=== PATIENT | male | born 1965 | race Caucasian/White ===

== ENCOUNTER 2020-03-01 13:46 | Inpatient (IN) | payer OTHER ==
[2020-03-01] MEDS ORDERED: ONDANSETRON *ODT* 4 MG TABLET SL PRN (16:57)
[2020-03-01] MEDS ORDERED: MAGNESIUM CITRATE 300 ML BOTTLE PO PRN (16:57)
[2020-03-01] MEDS ORDERED: methaDONE HCL 10 MG TABLET (FOR DETOX USE ONLY) PO ONE (16:57)
[2020-03-01] MEDS ORDERED: MAGNESIUM HYDROX 2400MG/30ML ORAL SUSPENSION 30 ML CUP PO PRN (16:57)
[2020-03-01] MEDS ORDERED: IBUPROFEN 400 MG TABLET (FP) PO PRN (16:57)
[2020-03-01] MEDS ORDERED: hydrOXYzine PAMOATE 25 MG CAPSULE (FP) PO PRN (16:57)
[2020-03-01] MEDS ORDERED: cloNIDine HCL 0.1 MG TABLET PO PRN (16:57)
[2020-03-01] MEDS ORDERED: MENTHOL/PHENOL 1 EACH UD MM PRN (16:57)
[2020-03-01] MEDS ORDERED: METHOCARBAMOL 500 MG TABLET PO PRN (16:57)
[2020-03-01] MEDS ORDERED: ACETAMINOPHEN 325 MG TABLET (FP) PO PRN ×2 (16:57)
[2020-03-01] MEDS ORDERED: BISMUTH SUBSALICYLATE 524 MG/30 ML PO PRN (16:57)
[2020-03-01] MEDS ORDERED: MAG HYDROX/AL HYDROX/SIMETH 30 ML UNIT-DOSE CUP PO PRN (16:57)
[2020-03-01] MEDS: ATORVASTATIN CA 80 MG TABLET (FP) PO SCH (22:29)
[2020-03-01] MEDS: MELATONIN 5 MG TABLETS PO SCH (22:29)
[2020-03-01] MEDS: THIAMINE HCL 100 MG TABLET (FP) PO SCH (22:29)
[2020-03-02] MEDS ORDERED: methaDONE HCL 10 MG TABLET (FOR DETOX USE ONLY) ONE (08:28)
[2020-03-02] MEDS: PRENATAL VITAMINS W/ FOLIC ACID TABLET (FP) PO SCH (09:16)
[2020-03-02] MEDS: NIFEdipine E.R 60 MG TABLET PO SCH (09:17)
[2020-03-02] MEDS: ASPIRIN 81 MG CHEWABLE TABLETS PO SCH (09:17)
[2020-03-02] MEDS ORDERED: DOCUSATE SODIUM 100 MG CAPSULE (FP) PO SCH (10:00)
[2020-03-02] MEDS ORDERED: HYDROCHLOROTHIAZIDE 25 MG TABLET (FP) PO SCH (10:00)
[2020-03-02] MEDS ORDERED: LACTULOSE 20 GM/30 ML UDC (FOR ORAL USE ONLY) PO ONE (10:52)
[2020-03-02] MEDS ORDERED: BISACODYL 10 MG SUPP.RECT PR ONE (10:52)
[2020-03-02] MEDS: FAMOTIDINE 20 MG TABLET PO SCH ×2 (12:00→22:09)
[2020-03-02] MEDS: RANOLAZINE E.R. 500 MG TABLET (FP) PO SCH ×2 (12:00→22:09)
[2020-03-02 12:01] LABS: HEMATOCRIT 29.8 % (35.4-49); HEMOGLOBIN 10.2 GM/dL (11.7-16.9); MCH 26.7 pg (25.7-33.7); MCHC 34.2 g/dl (32.0-35.9); MEAN CELL VOLUME 78.1 fl (80-96); MEAN PLT VOLUME 7.6 fl (7.5-11.1); PLATELET COUNT 178 K/MM3 (134-434); RBC 3.81 M/mm3 (4.00-5.60); RDW 14.5 % (11.9-15.9)
[2020-03-02 12:06] LABS: ALBUMIN 3.4 g/dl (3.4-5.0)
[2020-03-02 12:08] LABS: CALCIUM 8.5 mg/dL (8.5-10.1)
[2020-03-02 12:09] LABS: BLOOD UREA NITROGEN 18.5 mg/dL (7-18)
[2020-03-02 12:12] LABS: CREATININE 1.2 mg/dL (0.55-1.3)
[2020-03-02 12:13] LABS: BILIRUBIN,TOTAL 0.6 mg/dL (0.2-1); TOT PROT 6.6 g/dl (6.4-8.2)
[2020-03-02] MEDS ORDERED: POTASSIUM CHLORIDE ORAL LIQUID 20 MEQ/15 ML PO ONE (16:27)
[2020-03-02] MEDS ORDERED: SODIUM PHOSPHATE/NA BIPHOS 133 ML ENEMA PR ONE (21:22)
[2020-03-02] MEDS: ATORVASTATIN CA 80 MG TABLET (FP) PO SCH (22:08)
[2020-03-02] MEDS: MELATONIN 5 MG TABLETS PO SCH (22:08)
[2020-03-02] MEDS: THIAMINE HCL 100 MG TABLET (FP) PO SCH (22:09)
[2020-03-02] MEDS: POTASSIUM CHLORIDE ORAL LIQUID 20 MEQ/15 ML PO SCH (22:09)
[2020-03-03] MEDS ORDERED: methaDONE HCL 10 MG TABLET (FOR DETOX USE ONLY) PO ONE (10:00)
[2020-03-03] MEDS: NIFEdipine E.R 60 MG TABLET PO SCH (10:02)
[2020-03-03] MEDS: ASPIRIN 81 MG CHEWABLE TABLETS PO SCH (10:02)
[2020-03-03] MEDS: PRENATAL VITAMINS W/ FOLIC ACID TABLET (FP) PO SCH (10:03)
[2020-03-03] MEDS: POTASSIUM CHLORIDE ORAL LIQUID 20 MEQ/15 ML PO SCH ×2 (10:03→22:10)
[2020-03-03] MEDS: RANOLAZINE E.R. 500 MG TABLET (FP) PO SCH ×2 (10:03→22:10)
[2020-03-03] MEDS: FAMOTIDINE 20 MG TABLET PO SCH ×2 (10:03→22:11)
[2020-03-03] MEDS: LOSARTAN 50MG/HCTZ 12.5MG 1 TAB PO SCH (10:04)
[2020-03-03] MEDS ORDERED: BISACODYL 10 MG SUPP.RECT PR ONE (10:18)
[2020-03-03 11:03] LABS: HEMATOCRIT 30.1 % (35.4-49); HEMOGLOBIN 10.2 GM/dL (11.7-16.9); MCH 26.5 pg (25.7-33.7); MCHC 33.9 g/dl (32.0-35.9); MEAN CELL VOLUME 78.1 fl (80-96); MEAN PLT VOLUME 7.5 fl (7.5-11.1); PLATELET COUNT 181 K/MM3 (134-434); RBC 3.85 M/mm3 (4.00-5.60); WHITE BLOOD COUNT 5.1 K/mm3 (4.0-10.0)
[2020-03-03 11:11] LABS: BLOOD UREA NITROGEN 17.1 mg/dL (7-18)
[2020-03-03 11:13] LABS: ALBUMIN 3.2 g/dl (3.4-5.0); BILIRUBIN,TOTAL 0.4 mg/dL (0.2-1)
[2020-03-03 11:16] LABS: CALCIUM 8.5 mg/dL (8.5-10.1)
[2020-03-03 11:21] LABS: TOT PROT 6.1 g/dl (6.4-8.2)
[2020-03-03] MEDS: POLYETHYLENE GLYCOL 3350 119 GM BTL PO SCH (11:31)
[2020-03-03] MEDS ORDERED: diazePAM 5 MG TABLET PO PRN (12:33)
[2020-03-03] MEDS: SENNOSIDES 8.6MG TABLET (FP) PO SCH (22:08)
[2020-03-03] MEDS: MELATONIN 5 MG TABLETS PO SCH (22:08)
[2020-03-03] MEDS: ATORVASTATIN CA 40 MG TABLET (FP) PO SCH (22:09)
[2020-03-03] MEDS: THIAMINE HCL 100 MG TABLET (FP) PO SCH (22:09)
[2020-03-04] MEDS ORDERED: methaDONE HCL 10 MG TABLET (FOR DETOX USE ONLY) ONE (08:44)
[2020-03-04] MEDS: ASPIRIN 81 MG CHEWABLE TABLETS PO SCH (09:27)
[2020-03-04] MEDS: RANOLAZINE E.R. 500 MG TABLET (FP) PO SCH ×2 (09:27→22:14)
[2020-03-04] MEDS: NIFEdipine E.R 60 MG TABLET PO SCH (09:27)
[2020-03-04] MEDS: SENNOSIDES 8.6MG TABLET (FP) PO SCH ×2 (09:27→22:14)
[2020-03-04] MEDS: PRENATAL VITAMINS W/ FOLIC ACID TABLET (FP) PO SCH (09:27)
[2020-03-04] MEDS: LOSARTAN 50MG/HCTZ 12.5MG 1 TAB PO SCH (09:28)
[2020-03-04] MEDS: POLYETHYLENE GLYCOL 3350 119 GM BTL PO SCH (09:28)
[2020-03-04] MEDS: FAMOTIDINE 20 MG TABLET PO SCH ×2 (09:29→22:13)
[2020-03-04] MEDS: POTASSIUM CHLORIDE ORAL LIQUID 20 MEQ/15 ML PO SCH ×2 (10:32→22:13)
[2020-03-04] MEDS: MELATONIN 5 MG TABLETS PO SCH (22:13)
[2020-03-04] MEDS: ATORVASTATIN CA 40 MG TABLET (FP) PO SCH (22:13)
[2020-03-04] MEDS: THIAMINE HCL 100 MG TABLET (FP) PO SCH (22:14)
[2020-03-05 06:24] VITALS: BP 129/67; PULSE 55; TEMP 97.6
[2020-03-05] MEDS: ASPIRIN 81 MG CHEWABLE TABLETS PO SCH (09:03)
[2020-03-05] MEDS: PRENATAL VITAMINS W/ FOLIC ACID TABLET (FP) PO SCH (09:03)
[2020-03-05] MEDS: SENNOSIDES 8.6MG TABLET (FP) PO SCH (09:03)
[2020-03-05] MEDS: NIFEdipine E.R 60 MG TABLET PO SCH (09:04)
[2020-03-05] MEDS: POTASSIUM CHLORIDE ORAL LIQUID 20 MEQ/15 ML PO SCH (09:04)
[2020-03-05] MEDS: LOSARTAN 50MG/HCTZ 12.5MG 1 TAB PO SCH (09:04)
[2020-03-05] MEDS: FAMOTIDINE 20 MG TABLET PO SCH (09:05)
[2020-03-05] MEDS: RANOLAZINE E.R. 500 MG TABLET (FP) PO SCH (09:05)
[2020-03-05] MEDS: POLYETHYLENE GLYCOL 3350 119 GM BTL PO SCH (09:09)
[2020-03-05] MEDS ORDERED: methaDONE HCL 10 MG TABLET (FOR DETOX USE ONLY) PO ONE (10:00)
== END 2020-03-05 09:14 | disposition home or self-care (01) | DRG 773 ==
LOC: YASAS 13:46 → Y3N 17:54
PROVIDERS: ADMIT Allergy & Immunology; ATTEND Allergy & Immunology
PROC: HZ2ZZZZ Detoxification Services for Substance Abuse Treatment (ICD-10-PCS; principal; 2020-03-01)
DX: F11.23 Opioid dependence with withdrawal (principal); F19.24 Other psychoactive substance dependence with psychoactive substance-induced mood disorder; F41.9 Anxiety disorder, unspecified; A53.0 Latent syphilis, unspecified as early or late; G47.00 Insomnia, unspecified; I25.10 Atherosclerotic heart disease of native coronary artery without angina pectoris; I10 Essential (primary) hypertension; Z95.1 Presence of aortocoronary bypass graft; E78.5 Hyperlipidemia, unspecified; K59.00 Constipation, unspecified; Z87.891 Personal history of nicotine dependence; Z88.8 Allergy status to other drugs, medicaments and biological substances
CPT/HCPCS: 36415; 80053; 85027; 86593; 86780; 93005; 93010; C9803; J0735; U0003

== ENCOUNTER 2020-05-03 12:13 | Inpatient (IN) | payer OTHER ==
[2020-05-03 14:27] VITALS: BMI 31.2
[2020-05-03] MEDS ORDERED: IBUPROFEN 400 MG TABLET (FP) PO PRN (14:41)
[2020-05-03] MEDS ORDERED: ACETAMINOPHEN 325 MG TABLET (FP) PO PRN ×2 (14:41)
[2020-05-03] MEDS ORDERED: METHADONE HCL 10 MG TABLET (FOR DETOX USE ONLY) PO ONE (14:41)
[2020-05-03] MEDS ORDERED: BISMUTH SUBSALICYLATE 262 MG/15 ML BTL PO PRN (14:41)
[2020-05-03] MEDS ORDERED: ONDANSETRON *ODT* 4 MG TABLET SL PRN (14:41)
[2020-05-03] MEDS ORDERED: MAGNESIUM CITRATE 300 ML BOTTLE PO PRN (14:41)
[2020-05-03] MEDS ORDERED: MAG HYDROX/AL HYDROX/SIMETH 30 ML UNIT-DOSE CUP PO PRN (14:41)
[2020-05-03] MEDS ORDERED: MENTHOL/PHENOL 1 EACH UD MM PRN (14:41)
[2020-05-03] MEDS: PRENATAL VITAMINS W/ FOLIC ACID TABLET (FP) PO SCH (16:02)
[2020-05-03] MEDS: METHOCARBAMOL 500 MG TABLET PO PRN (16:03)
[2020-05-03] MEDS: MAGNESIUM HYDROX 2400MG/30ML ORAL SUSPENSION 30 ML CUP PO PRN (16:04)
[2020-05-03] MEDS ORDERED: LACTULOSE 20 GM/30 ML UDC (FOR ORAL USE ONLY) PO ONE (16:15)
[2020-05-03] MEDS: hydrOXYzine PAMOATE 25 MG CAPSULE (FP) PO SCH ×2 (18:00→22:23)
[2020-05-03] MEDS ORDERED: COLLOIDAL OATMEAL 1 BAR EACH TP PRN (18:26)
[2020-05-03] MEDS: THIAMINE HCL 100 MG TABLET (FP) PO SCH (22:22)
[2020-05-03] MEDS: ATORVASTATIN CA 40 MG TABLET (FP) PO SCH (22:22)
[2020-05-03] MEDS: MELATONIN 5 MG TABLETS PO SCH (22:23)
[2020-05-03] MEDS: LACTULOSE 20 GM/30 ML UDC (FOR ORAL USE ONLY) PO SCH (22:23)
[2020-05-03] MEDS: hydrALAZINE HCL 25 MG TABLET (FP) PO SCH (23:48)
[2020-05-03] MEDS: CARVEDILOL 6.25 MG TABLET (FP) PO SCH (23:48)
[2020-05-04] MEDS: hydrOXYzine PAMOATE 25 MG CAPSULE (FP) PO SCH (07:09)
[2020-05-04] MEDS: LACTULOSE 20 GM/30 ML UDC (FOR ORAL USE ONLY) PO SCH ×3 (07:09→22:03)
[2020-05-04] MEDS: hydrALAZINE HCL 25 MG TABLET (FP) PO SCH ×3 (07:12→22:03)
[2020-05-04] MEDS ORDERED: MASKS NR ONE (07:13)
[2020-05-04] MEDS ORDERED: METHADONE HCL 10 MG TABLET (FOR DETOX USE ONLY) ONE (08:49)
[2020-05-04] MEDS ORDERED: METHADONE HCL 5 MG TABLET (FOR DETOX USE ONLY) ONE (08:49)
[2020-05-04] MEDS ORDERED: hydrOXYzine PAMOATE 25 MG CAPSULE (FP) PO PRN (09:13)
[2020-05-04] MEDS ORDERED: METHADONE (DETOX) 20 MG, METHADONE (DETOX) 5 MG PO ONE (10:00)
[2020-05-04 10:28] LABS: HEMATOCRIT 30.1 % (35.4-49); HEMOGLOBIN 10.1 GM/dL (11.7-16.9); MCH 27.2 pg (25.7-33.7); MCHC 33.7 g/dl (32.0-35.9); MEAN CELL VOLUME 80.7 fl (80-96); MEAN PLT VOLUME 7.8 fl (7.5-11.1); PLATELET COUNT 203 K/MM3 (134-434); RBC 3.73 M/mm3 (4.00-5.60); RDW 15.4 % (11.9-15.9); WHITE BLOOD COUNT 5.9 K/mm3 (4.0-10.0)
[2020-05-04] MEDS: ASPIRIN 81 MG CHEWABLE TABLETS PO SCH (10:41)
[2020-05-04] MEDS: CARVEDILOL 6.25 MG TABLET (FP) PO SCH ×2 (10:42→22:03)
[2020-05-04] MEDS: HYDROCHLOROTHIAZIDE 25 MG TABLET (FP) PO SCH (10:42)
[2020-05-04] MEDS: LOSARTAN POTASSIUM 50 MG TABLET PO SCH (10:42)
[2020-05-04] MEDS: PANTOPRAZOLE 40 MG TABLET PO SCH (10:42)
[2020-05-04] MEDS: PRENATAL VITAMINS W/ FOLIC ACID TABLET (FP) PO SCH (10:42)
[2020-05-04 11:05] LABS: ALBUMIN 3.9 g/dl (3.4-5.0)
[2020-05-04 11:06] LABS: BLOOD UREA NITROGEN 23.4 mg/dL (7-18)
[2020-05-04 11:09] LABS: CREATININE 1.4 mg/dL (0.55-1.3)
[2020-05-04 11:10] LABS: BILIRUBIN,TOTAL 0.4 mg/dL (0.2-1); TOT PROT 7.3 g/dl (6.4-8.2)
[2020-05-04 11:19] LABS: CALCIUM 8.9 mg/dL (8.5-10.1)
[2020-05-04] MEDS: NIFEdipine E.R 60 MG TABLET PO SCH (11:50)
[2020-05-04] MEDS: busPIRone HCL 5 MG TABLET PO SCH ×2 (14:05→22:02)
[2020-05-04] MEDS: cloNIDine HCL 0.1 MG TABLET PO PRN ×2 (14:08→22:07)
[2020-05-04] MEDS ORDERED: RANOLAZINE E.R. 500 MG TABLET (FP) PO ONE (14:52)
[2020-05-04] MEDS: MELATONIN 5 MG TABLETS PO SCH (22:03)
[2020-05-04] MEDS: ATORVASTATIN CA 40 MG TABLET (FP) PO SCH (22:03)
[2020-05-04] MEDS: RANOLAZINE E.R. 500 MG TABLET (FP) PO SCH (22:03)
[2020-05-04] MEDS: THIAMINE HCL 100 MG TABLET (FP) PO SCH (22:03)
[2020-05-05] MEDS: hydrALAZINE HCL 25 MG TABLET (FP) PO SCH ×3 (06:21→22:26)
[2020-05-05] MEDS: busPIRone HCL 5 MG TABLET PO SCH ×3 (06:21→22:25)
[2020-05-05] MEDS: LACTULOSE 20 GM/30 ML UDC (FOR ORAL USE ONLY) PO SCH (06:23)
[2020-05-05] MEDS ORDERED: METHADONE HCL 10 MG TABLET (FOR DETOX USE ONLY) PO ONE (10:00)
[2020-05-05] MEDS ORDERED: NIFEdipine E.R 60 MG TABLET PO SCH (10:00)
[2020-05-05] MEDS ORDERED: RANOLAZINE E.R. 500 MG TABLET (FP) PO ONE (12:00)
[2020-05-05] MEDS: METHOCARBAMOL 500 MG TABLET PO PRN (12:19)
[2020-05-05] MEDS: ASPIRIN 81 MG CHEWABLE TABLETS PO SCH (12:19)
[2020-05-05] MEDS: PANTOPRAZOLE 40 MG TABLET PO SCH (12:19)
[2020-05-05] MEDS: PRENATAL VITAMINS W/ FOLIC ACID TABLET (FP) PO SCH (12:19)
[2020-05-05] MEDS: CARVEDILOL 6.25 MG TABLET (FP) PO SCH (12:20)
[2020-05-05] MEDS: LOSARTAN POTASSIUM 50 MG TABLET PO SCH ×2 (12:23→12:31)
[2020-05-05] MEDS: HYDROCHLOROTHIAZIDE 25 MG TABLET (FP) PO SCH (12:23)
[2020-05-05] MEDS: NIFEdipine E.R 60 MG TABLET PO SCH ×2 (12:24→12:32)
[2020-05-05] MEDS ORDERED: ATORVASTATIN CA 40 MG TABLET (FP) PO SCH (13:11)
[2020-05-05] MEDS ORDERED: POLYETHYLENE GLYCOL 3350 119 GM BTL PO PRN (13:12)
[2020-05-05] MEDS ORDERED: LACTULOSE 20 GM/30 ML UDC (FOR ORAL USE ONLY) PO PRN (13:12)
[2020-05-05] MEDS ORDERED: CLOPIDOGREL BISULFATE 75 MG TABLET (FP) PO SCH (14:00)
[2020-05-05] MEDS: CLOPIDOGREL BISULFATE 75 MG TABLET (FP) PO SCH (15:00)
[2020-05-05] MEDS: RANOLAZINE E.R. 500 MG TABLET (FP) PO SCH ×2 (15:26→22:25)
[2020-05-05] MEDS: ATORVASTATIN CA 20 MG TABLET (FP) PO SCH (22:24)
[2020-05-05] MEDS: MELATONIN 5 MG TABLETS PO SCH (22:24)
[2020-05-05] MEDS: FAMOTIDINE 20 MG TABLET PO SCH (22:25)
[2020-05-05] MEDS: THIAMINE HCL 100 MG TABLET (FP) PO SCH (22:25)
[2020-05-05] MEDS: MAGNESIUM HYDROX 2400MG/30ML ORAL SUSPENSION 30 ML CUP PO PRN (22:43)
[2020-05-06] MEDS: busPIRone HCL 5 MG TABLET PO SCH ×3 (06:30→22:34)
[2020-05-06] MEDS: CLOPIDOGREL BISULFATE 75 MG TABLET (FP) PO SCH (06:31)
[2020-05-06] MEDS: hydrALAZINE HCL 25 MG TABLET (FP) PO SCH ×3 (06:31→22:34)
[2020-05-06] MEDS ORDERED: METHADONE HCL 10 MG TABLET (FOR DETOX USE ONLY) ONE (09:53)
[2020-05-06] MEDS ORDERED: METHADONE HCL 5 MG TABLET (FOR DETOX USE ONLY) ONE (09:53)
[2020-05-06] MEDS ORDERED: METHADONE (DETOX) 10 MG, METHADONE (DETOX) 5 MG PO ONE (10:00)
[2020-05-06] MEDS: HYDROCHLOROTHIAZIDE 25 MG TABLET (FP) PO SCH (10:52)
[2020-05-06] MEDS: PRENATAL VITAMINS W/ FOLIC ACID TABLET (FP) PO SCH (10:54)
[2020-05-06] MEDS: FAMOTIDINE 20 MG TABLET PO SCH ×2 (10:55→22:35)
[2020-05-06] MEDS: LOSARTAN POTASSIUM 50 MG TABLET PO SCH (10:55)
[2020-05-06] MEDS: ASPIRIN 81 MG CHEWABLE TABLETS PO SCH (10:55)
[2020-05-06] MEDS: NIFEdipine E.R 60 MG TABLET PO SCH (10:55)
[2020-05-06] MEDS: RANOLAZINE E.R. 500 MG TABLET (FP) PO SCH ×2 (10:55→22:35)
[2020-05-06] MEDS: METHOCARBAMOL 500 MG TABLET PO PRN ×2 (10:56→17:54)
[2020-05-06] MEDS: MELATONIN 5 MG TABLETS PO SCH (22:34)
[2020-05-06] MEDS: ATORVASTATIN CA 20 MG TABLET (FP) PO SCH (22:35)
[2020-05-06] MEDS: THIAMINE HCL 100 MG TABLET (FP) PO SCH (22:36)
[2020-05-07] MEDS ORDERED: METHADONE HCL 10 MG TABLET (FOR DETOX USE ONLY) PO ONE ×2 (06:00→10:00)
[2020-05-07] MEDS: CLOPIDOGREL BISULFATE 75 MG TABLET (FP) PO SCH (06:05)
[2020-05-07] MEDS: busPIRone HCL 5 MG TABLET PO SCH ×2 (06:06→15:27)
[2020-05-07] MEDS: hydrALAZINE HCL 25 MG TABLET (FP) PO SCH ×2 (06:30→15:26)
[2020-05-07 09:38] VITALS: BP 169/84; PULSE 57; TEMP 96.9
[2020-05-07] MEDS: ASPIRIN 81 MG CHEWABLE TABLETS PO SCH (11:32)
[2020-05-07] MEDS: HYDROCHLOROTHIAZIDE 25 MG TABLET (FP) PO SCH (11:33)
[2020-05-07] MEDS: PRENATAL VITAMINS W/ FOLIC ACID TABLET (FP) PO SCH (11:33)
[2020-05-07] MEDS: FAMOTIDINE 20 MG TABLET PO SCH (11:34)
[2020-05-07] MEDS: NIFEdipine E.R 60 MG TABLET PO SCH (11:34)
[2020-05-07] MEDS: RANOLAZINE E.R. 500 MG TABLET (FP) PO SCH (11:34)
[2020-05-07] MEDS: LOSARTAN POTASSIUM 50 MG TABLET PO SCH (11:34)
[2020-05-08] MEDS ORDERED: METHADONE HCL 5 MG TABLET (FOR DETOX USE ONLY) PO ONE (06:00)
== END 2020-05-07 09:19 | disposition home or self-care (01) | DRG 773 ==
LOC: YASAS 12:13 → Y3N 14:49
PROVIDERS: ADMIT Allergy & Immunology; ATTEND Allergy & Immunology
PROC: HZ2ZZZZ Detoxification Services for Substance Abuse Treatment (ICD-10-PCS; principal; 2020-05-03)
DX: F11.23 Opioid dependence with withdrawal (principal); F19.282 Other psychoactive substance dependence with psychoactive substance-induced sleep disorder; F19.280 Other psychoactive substance dependence with psychoactive substance-induced anxiety disorder; F19.24 Other psychoactive substance dependence with psychoactive substance-induced mood disorder; F32.9 Major depressive disorder, single episode, unspecified; F41.9 Anxiety disorder, unspecified; I25.10 Atherosclerotic heart disease of native coronary artery without angina pectoris; I10 Essential (primary) hypertension; Z95.1 Presence of aortocoronary bypass graft; Z87.891 Personal history of nicotine dependence; Z86.19 Personal history of other infectious and parasitic diseases; Z88.8 Allergy status to other drugs, medicaments and biological substances
CPT/HCPCS: 36415; 80053; 85027; 86593; 86780; 93005; 93010; C9803; J0735; U0003

== ENCOUNTER 2020-05-26 17:58 | Inpatient (IN) | payer OTHER ==
[2020-05-26] MEDS ORDERED: IBUPROFEN 400 MG TABLET (FP) PO PRN (19:54)
[2020-05-26] MEDS ORDERED: MAG HYDROX/AL HYDROX/SIMETH 30 ML UNIT-DOSE CUP PO PRN (19:54)
[2020-05-26] MEDS ORDERED: METHOCARBAMOL 500 MG TABLET PO PRN (19:54)
[2020-05-26] MEDS ORDERED: MAGNESIUM CITRATE 300 ML BOTTLE PO PRN (19:54)
[2020-05-26] MEDS ORDERED: BISMUTH SUBSALICYLATE 524 MG/30 ML UD PO PRN (19:54)
[2020-05-26] MEDS ORDERED: MENTHOL/PHENOL 1 EACH UD MM PRN (19:54)
[2020-05-26] MEDS ORDERED: cloNIDine HCL 0.1 MG TABLET PO PRN (19:54)
[2020-05-26] MEDS ORDERED: MAGNESIUM HYDROX 2400MG/30ML ORAL SUSPENSION 30 ML CUP PO PRN (19:54)
[2020-05-26] MEDS ORDERED: ACETAMINOPHEN 325 MG TABLET (FP) PO PRN ×2 (19:54)
[2020-05-26] MEDS ORDERED: ONDANSETRON *ODT* 4 MG TABLET SL PRN (19:54)
[2020-05-26 19:57] VITALS: BMI 30.2
[2020-05-26] MEDS ORDERED: hydrOXYzine PAMOATE 50 MG CAPSULE (FP) PO PRN (20:01)
[2020-05-26] MEDS ORDERED: METHADONE HCL 10 MG TABLET (FOR DETOX USE ONLY) PO ONE (21:00)
[2020-05-26] MEDS: THIAMINE HCL 100 MG TABLET (FP) PO SCH (23:00)
[2020-05-26] MEDS: ATORVASTATIN CA 40 MG TABLET (FP) PO SCH (23:00)
[2020-05-26] MEDS: hydrALAZINE HCL 25 MG TABLET (FP) PO SCH ×2 (23:00→23:14)
[2020-05-26] MEDS: CARVEDILOL 6.25 MG TABLET (FP) PO SCH (23:01)
[2020-05-26] MEDS: hydrOXYzine PAMOATE 25 MG CAPSULE (FP) PO SCH (23:04)
[2020-05-26] MEDS: RANOLAZINE E.R. 500 MG TABLET (FP) PO SCH (23:04)
[2020-05-26] MEDS: MELATONIN 5 MG TABLETS PO SCH ×2 (23:04→23:13)
[2020-05-26] MEDS: busPIRone HCL 5 MG TABLET PO SCH (23:04)
[2020-05-26] MEDS ORDERED: LACTULOSE 20 GM/30 ML UDC (FOR ORAL USE ONLY) PO ONE (23:30)
[2020-05-26] MEDS: LACTULOSE 20 GM/30 ML UDC (FOR ORAL USE ONLY) PO ONE ×2 (23:56→23:57)
[2020-05-27] MEDS: busPIRone HCL 5 MG TABLET PO SCH (05:34)
[2020-05-27] MEDS: hydrOXYzine PAMOATE 25 MG CAPSULE (FP) PO SCH ×6 (05:34→22:38)
[2020-05-27] MEDS: hydrALAZINE HCL 25 MG TABLET (FP) PO SCH ×3 (07:49→22:37)
[2020-05-27] MEDS ORDERED: METHADONE HCL 10 MG TABLET (FOR DETOX USE ONLY) ONE (08:48)
[2020-05-27] MEDS ORDERED: METHADONE HCL 5 MG TABLET (FOR DETOX USE ONLY) ONE (08:49)
[2020-05-27] MEDS ORDERED: LACTULOSE 20 GM/30 ML UDC (FOR ORAL USE ONLY) PO SCH (10:00)
[2020-05-27] MEDS ORDERED: FERROUS SO4 325 MG TABLET (FP) PO SCH (10:00)
[2020-05-27] MEDS ORDERED: METHADONE (DETOX) 20 MG, METHADONE (DETOX) 5 MG PO ONE (10:00)
[2020-05-27] MEDS: PANTOPRAZOLE 40 MG TABLET PO SCH (10:19)
[2020-05-27] MEDS: DOCUSATE SODIUM 100 MG CAPSULE (FP) PO SCH (10:19)
[2020-05-27] MEDS: RANOLAZINE E.R. 500 MG TABLET (FP) PO SCH ×2 (10:20→22:38)
[2020-05-27] MEDS: HYDROCHLOROTHIAZIDE 25 MG TABLET (FP) PO SCH (10:20)
[2020-05-27] MEDS: CARVEDILOL 6.25 MG TABLET (FP) PO SCH ×2 (10:20→22:38)
[2020-05-27] MEDS: LOSARTAN POTASSIUM 50 MG TABLET PO SCH (10:21)
[2020-05-27] MEDS: FLUoxetine HCL 20 MG CAPSULE PO SCH (10:21)
[2020-05-27] MEDS: ASPIRIN 81 MG CHEWABLE TABLETS PO SCH (10:21)
[2020-05-27] MEDS: FERROUS SO4 325 MG TABLET (FP) PO SCH ×2 (10:22→22:38)
[2020-05-27] MEDS: PRENATAL VITAMINS W/ FOLIC ACID TABLET (FP) PO SCH (10:22)
[2020-05-27] MEDS: NIFEdipine E.R 60 MG TABLET PO SCH (10:30)
[2020-05-27] MEDS: CLOPIDOGREL BISULFATE 75 MG TABLET (FP) PO SCH (10:32)
[2020-05-27 10:40] LABS: HEMATOCRIT 26.9 % (35.4-49); HEMOGLOBIN 9.4 GM/dL (11.7-16.9); MCH 28.1 pg (25.7-33.7); MEAN CELL VOLUME 80.2 fl (80-96); MEAN PLT VOLUME 7.2 fl (7.5-11.1); PLATELET COUNT 191 K/MM3 (134-434); RBC 3.36 M/mm3 (4.00-5.60); RDW 15.2 % (11.9-15.9); WHITE BLOOD COUNT 4.4 K/mm3 (4.0-10.0)
[2020-05-27 10:41] LABS: POTASSIUM 3.7 mmol/L (3.5-5.1)
[2020-05-27 10:51] LABS: CREATININE 1.1 mg/dL (0.55-1.3)
[2020-05-27 10:52] LABS: TOT PROT 6.2 g/dl (6.4-8.2)
[2020-05-27] MEDS ORDERED: TRIMETHOBENZAMIDE HCL 200MG/2ML INJ IM PRN (10:55)
[2020-05-27 10:56] LABS: ALBUMIN 3.2 g/dl (3.4-5.0); BILIRUBIN,TOTAL 0.4 mg/dL (0.2-1); BLOOD UREA NITROGEN 24.1 mg/dL (7-18); CALCIUM 8.6 mg/dL (8.5-10.1)
[2020-05-27] MEDS: ATORVASTATIN CA 40 MG TABLET (FP) PO SCH (22:37)
[2020-05-27] MEDS: THIAMINE HCL 100 MG TABLET (FP) PO SCH (22:38)
[2020-05-27] MEDS: LACTULOSE 20 GM/30 ML UDC (FOR ORAL USE ONLY) PO SCH (22:39)
[2020-05-27] MEDS: MELATONIN 5 MG TABLETS PO SCH (22:39)
[2020-05-28] MEDS: hydrOXYzine PAMOATE 25 MG CAPSULE (FP) PO SCH ×5 (06:06→22:12)
[2020-05-28] MEDS: hydrALAZINE HCL 25 MG TABLET (FP) PO SCH ×3 (06:07→22:12)
[2020-05-28] MEDS: PRENATAL VITAMINS W/ FOLIC ACID TABLET (FP) PO SCH (09:33)
[2020-05-28] MEDS: CLOPIDOGREL BISULFATE 75 MG TABLET (FP) PO SCH (09:34)
[2020-05-28] MEDS: ASPIRIN 81 MG CHEWABLE TABLETS PO SCH (09:34)
[2020-05-28] MEDS: RANOLAZINE E.R. 500 MG TABLET (FP) PO SCH ×2 (09:34→22:12)
[2020-05-28] MEDS: FERROUS SO4 325 MG TABLET (FP) PO SCH ×2 (09:34→22:12)
[2020-05-28] MEDS: PANTOPRAZOLE 40 MG TABLET PO SCH (09:34)
[2020-05-28] MEDS: DOCUSATE SODIUM 100 MG CAPSULE (FP) PO SCH (09:34)
[2020-05-28] MEDS: CARVEDILOL 6.25 MG TABLET (FP) PO SCH ×2 (09:34→22:13)
[2020-05-28] MEDS: LOSARTAN POTASSIUM 50 MG TABLET PO SCH (09:34)
[2020-05-28] MEDS: HYDROCHLOROTHIAZIDE 25 MG TABLET (FP) PO SCH (09:34)
[2020-05-28] MEDS: FLUoxetine HCL 20 MG CAPSULE PO SCH (09:35)
[2020-05-28] MEDS: NIFEdipine E.R 60 MG TABLET PO SCH (09:35)
[2020-05-28] MEDS ORDERED: METHADONE HCL 10 MG TABLET (FOR DETOX USE ONLY) PO ONE (10:00)
[2020-05-28] MEDS ORDERED: hydrALAZINE HCL 25 MG TABLET (FP) PO ONE (17:45)
[2020-05-28] MEDS: THIAMINE HCL 100 MG TABLET (FP) PO SCH (22:12)
[2020-05-28] MEDS: ATORVASTATIN CA 40 MG TABLET (FP) PO SCH (22:12)
[2020-05-28] MEDS: LACTULOSE 20 GM/30 ML UDC (FOR ORAL USE ONLY) PO SCH (22:13)
[2020-05-28] MEDS: MELATONIN 5 MG TABLETS PO SCH (22:14)
[2020-05-28] MEDS ORDERED: LACTULOSE 20 GM/30 ML UDC (FOR ORAL USE ONLY) PO SCH (22:57)
[2020-05-29] MEDS: hydrOXYzine PAMOATE 25 MG CAPSULE (FP) PO SCH ×5 (05:35→21:06)
[2020-05-29] MEDS: hydrALAZINE HCL 25 MG TABLET (FP) PO SCH ×3 (05:35→21:07)
[2020-05-29] MEDS ORDERED: METHADONE HCL 5 MG TABLET (FOR DETOX USE ONLY) ONE (09:39)
[2020-05-29] MEDS ORDERED: METHADONE HCL 10 MG TABLET (FOR DETOX USE ONLY) ONE (09:39)
[2020-05-29] MEDS: PRENATAL VITAMINS W/ FOLIC ACID TABLET (FP) PO SCH (09:46)
[2020-05-29] MEDS: CARVEDILOL 6.25 MG TABLET (FP) PO SCH ×2 (09:47→21:06)
[2020-05-29] MEDS: PANTOPRAZOLE 40 MG TABLET PO SCH (09:47)
[2020-05-29] MEDS: RANOLAZINE E.R. 500 MG TABLET (FP) PO SCH ×2 (09:47→21:06)
[2020-05-29] MEDS: CLOPIDOGREL BISULFATE 75 MG TABLET (FP) PO SCH (09:47)
[2020-05-29] MEDS: FERROUS SO4 325 MG TABLET (FP) PO SCH ×2 (09:47→21:07)
[2020-05-29] MEDS: LOSARTAN POTASSIUM 50 MG TABLET PO SCH (09:47)
[2020-05-29] MEDS: DOCUSATE SODIUM 100 MG CAPSULE (FP) PO SCH (09:47)
[2020-05-29] MEDS: ASPIRIN 81 MG CHEWABLE TABLETS PO SCH (09:47)
[2020-05-29] MEDS: HYDROCHLOROTHIAZIDE 25 MG TABLET (FP) PO SCH (09:47)
[2020-05-29] MEDS: NIFEdipine E.R 60 MG TABLET PO SCH (09:50)
[2020-05-29] MEDS ORDERED: METHADONE (DETOX) 10 MG, METHADONE (DETOX) 5 MG PO ONE (10:00)
[2020-05-29] MEDS: FLUoxetine HCL 20 MG CAPSULE PO SCH (10:13)
[2020-05-29 11:07] LABS: SARS-CoV-2 NAA Not Detected (Not Detected)
[2020-05-29] MEDS: ATORVASTATIN CA 40 MG TABLET (FP) PO SCH (21:07)
[2020-05-29] MEDS: THIAMINE HCL 100 MG TABLET (FP) PO SCH (21:07)
[2020-05-29] MEDS: MELATONIN 5 MG TABLETS PO SCH (21:10)
[2020-05-30] MEDS: hydrALAZINE HCL 25 MG TABLET (FP) PO SCH (05:08)
[2020-05-30] MEDS: hydrOXYzine PAMOATE 25 MG CAPSULE (FP) PO SCH ×2 (05:09→09:39)
[2020-05-30 09:05] VITALS: BP 148/82; PULSE 66; TEMP 97.7
[2020-05-30] MEDS: RANOLAZINE E.R. 500 MG TABLET (FP) PO SCH (09:39)
[2020-05-30] MEDS: DOCUSATE SODIUM 100 MG CAPSULE (FP) PO SCH (09:39)
[2020-05-30] MEDS: HYDROCHLOROTHIAZIDE 25 MG TABLET (FP) PO SCH (09:39)
[2020-05-30] MEDS: ASPIRIN 81 MG CHEWABLE TABLETS PO SCH (09:39)
[2020-05-30] MEDS: PRENATAL VITAMINS W/ FOLIC ACID TABLET (FP) PO SCH (09:39)
[2020-05-30] MEDS: FERROUS SO4 325 MG TABLET (FP) PO SCH (09:39)
[2020-05-30] MEDS: PANTOPRAZOLE 40 MG TABLET PO SCH (09:39)
[2020-05-30] MEDS: CLOPIDOGREL BISULFATE 75 MG TABLET (FP) PO SCH (09:39)
[2020-05-30] MEDS: CARVEDILOL 6.25 MG TABLET (FP) PO SCH (09:39)
[2020-05-30] MEDS: NIFEdipine E.R 60 MG TABLET PO SCH (09:39)
[2020-05-30] MEDS: FLUoxetine HCL 20 MG CAPSULE PO SCH (09:39)
[2020-05-30] MEDS: LOSARTAN POTASSIUM 50 MG TABLET PO SCH (09:45)
[2020-05-30] MEDS ORDERED: METHADONE HCL 10 MG TABLET (FOR DETOX USE ONLY) PO ONE (10:00)
[2020-05-31] MEDS ORDERED: METHADONE HCL 5 MG TABLET (FOR DETOX USE ONLY) PO ONE (06:00)
== END 2020-05-30 09:42 | disposition left against medical advice (07) | DRG 770 ==
LOC: YASAS 17:58 → Y3N 20:22
PROVIDERS: ADMIT Allergy & Immunology; ATTEND Allergy & Immunology
PROC: HZ2ZZZZ Detoxification Services for Substance Abuse Treatment (ICD-10-PCS; principal; 2020-05-26)
DX: F11.23 Opioid dependence with withdrawal (principal); F41.9 Anxiety disorder, unspecified; I25.10 Atherosclerotic heart disease of native coronary artery without angina pectoris; Z95.1 Presence of aortocoronary bypass graft; Z95.5 Presence of coronary angioplasty implant and graft; D64.9 Anemia, unspecified; E78.5 Hyperlipidemia, unspecified; G47.00 Insomnia, unspecified; K59.00 Constipation, unspecified; Z87.891 Personal history of nicotine dependence; Z86.19 Personal history of other infectious and parasitic diseases; Z88.8 Allergy status to other drugs, medicaments and biological substances
CPT/HCPCS: 36415; 80053; 85027; 86593; 86780; 93005; 93010; C9803; J0735; U0003; U0005

== ENCOUNTER 2020-07-19 14:30 | Inpatient (IN) | payer OTHER ==
[2020-07-19 16:00] VITALS: BMI 31.0
[2020-07-19] MEDS ORDERED: MAGNESIUM CITRATE 300 ML BOTTLE PO PRN (17:31)
[2020-07-19] MEDS ORDERED: hydrOXYzine PAMOATE 25 MG CAPSULE (FP) PO PRN (17:31)
[2020-07-19] MEDS ORDERED: MENTHOL/PHENOL 1 EACH UD MM PRN (17:31)
[2020-07-19] MEDS ORDERED: ONDANSETRON *ODT* 4 MG TABLET SL PRN (17:31)
[2020-07-19] MEDS ORDERED: MAGNESIUM HYDROX 2400MG/30ML ORAL SUSPENSION 30 ML CUP PO PRN (17:31)
[2020-07-19] MEDS ORDERED: MAG HYDROX/AL HYDROX/SIMETH 30 ML UNIT-DOSE CUP PO PRN (17:31)
[2020-07-19] MEDS ORDERED: ACETAMINOPHEN 325 MG TABLET (FP) PO PRN ×2 (17:31)
[2020-07-19] MEDS ORDERED: METHADONE HCL 10 MG TABLET (FOR DETOX USE ONLY) PO ONE (17:33)
[2020-07-19] MEDS ORDERED: cloNIDine HCL 0.1 MG TABLET PO PRN (17:33)
[2020-07-19] MEDS: diazePAM 5 MG TABLET PO SCH ×2 (19:07→22:11)
[2020-07-19] MEDS: DOCUSATE SODIUM 100 MG CAPSULE (FP) PO SCH (19:07)
[2020-07-19] MEDS: CARVEDILOL 6.25 MG TABLET (FP) PO SCH (22:11)
[2020-07-19] MEDS: ATORVASTATIN CA 80 MG TABLET (FP) PO SCH (22:11)
[2020-07-19] MEDS: MELATONIN 5 MG TABLETS PO SCH (22:11)
[2020-07-19] MEDS: THIAMINE HCL 100 MG TABLET (FP) PO SCH (22:11)
[2020-07-20] MEDS: diazePAM 5 MG TABLET PO SCH ×4 (05:09→22:09)
[2020-07-20] MEDS ORDERED: METHADONE HCL 5 MG TABLET (FOR DETOX USE ONLY) ONE (09:03)
[2020-07-20] MEDS ORDERED: METHADONE HCL 10 MG TABLET (FOR DETOX USE ONLY) ONE (09:04)
[2020-07-20] MEDS ORDERED: HYDROCHLOROTHIAZIDE 50 MG TABLET PO SCH (10:00)
[2020-07-20] MEDS ORDERED: METHADONE (DETOX) 20 MG, METHADONE (DETOX) 5 MG PO ONE (10:00)
[2020-07-20 10:10] LABS: CALCIUM 8.5 mg/dL (8.5-10.1)
[2020-07-20 10:11] LABS: ALBUMIN 3.3 g/dl (3.4-5.0); BLOOD UREA NITROGEN 14.4 mg/dL (7-18)
[2020-07-20 10:15] LABS: BILIRUBIN,TOTAL 0.4 mg/dL (0.2-1); TOT PROT 6.4 g/dl (6.4-8.2)
[2020-07-20 10:17] LABS: HEMATOCRIT 27.6 % (35.4-49); HEMOGLOBIN 9.1 GM/dL (11.7-16.9); MCH 26.8 pg (25.7-33.7); MEAN CELL VOLUME 81.3 fl (80-96); MEAN PLT VOLUME 7.6 fl (7.5-11.1); PLATELET COUNT 190 K/MM3 (134-434); RBC 3.39 M/mm3 (4.00-5.60); RDW 14.5 % (11.9-15.9); WHITE BLOOD COUNT 4.7 K/mm3 (4.0-10.0)
[2020-07-20] MEDS: ASPIRIN 81 MG CHEWABLE TABLETS PO SCH (11:06)
[2020-07-20] MEDS: RANOLAZINE E.R. 500 MG TABLET (FP) PO SCH ×3 (11:08→22:08)
[2020-07-20] MEDS: HYDROCHLOROTHIAZIDE 25 MG TABLET (FP) PO SCH (11:11)
[2020-07-20] MEDS: PANTOPRAZOLE 40 MG TABLET PO SCH (11:11)
[2020-07-20] MEDS: LACTULOSE 20 GM/30 ML UDC (FOR ORAL USE ONLY) PO SCH (11:11)
[2020-07-20] MEDS: DOCUSATE SODIUM 100 MG CAPSULE (FP) PO SCH (11:11)
[2020-07-20] MEDS: CARVEDILOL 6.25 MG TABLET (FP) PO SCH ×2 (11:11→22:08)
[2020-07-20] MEDS: CLOPIDOGREL BISULFATE 75 MG TABLET (FP) PO SCH (11:11)
[2020-07-20] MEDS: PRENATAL VITAMINS W/ FOLIC ACID TABLET (FP) PO SCH (11:12)
[2020-07-20] MEDS: FERROUS SO4 325 MG TABLET (FP) PO SCH (11:12)
[2020-07-20] MEDS: NIFEdipine E.R. 30 MG TABLET PO SCH (11:59)
[2020-07-20] MEDS: hydrALAZINE HCL 25 MG TABLET (FP) PO SCH ×2 (14:46→22:08)
[2020-07-20] MEDS: MELATONIN 5 MG TABLETS PO SCH (22:08)
[2020-07-20] MEDS: ATORVASTATIN CA 80 MG TABLET (FP) PO SCH (22:08)
[2020-07-20] MEDS: THIAMINE HCL 100 MG TABLET (FP) PO SCH (22:08)
[2020-07-21] MEDS: hydrALAZINE HCL 25 MG TABLET (FP) PO SCH ×3 (05:27→22:10)
[2020-07-21] MEDS: diazePAM 5 MG TABLET PO SCH ×3 (05:27→22:09)
[2020-07-21] MEDS ORDERED: METHADONE HCL 10 MG TABLET (FOR DETOX USE ONLY) PO ONE (10:00)
[2020-07-21 10:02] LABS: HEMOGLOBIN 9.9 GM/dL (11.7-16.9); MCH 27.1 pg (25.7-33.7); MCHC 34.1 g/dl (32.0-35.9); MEAN CELL VOLUME 79.7 fl (80-96); MEAN PLT VOLUME 7.4 fl (7.5-11.1); PLATELET COUNT 202 K/MM3 (134-434); RBC 3.64 M/mm3 (4.00-5.60); RDW 14.2 % (11.9-15.9); WHITE BLOOD COUNT 5.5 K/mm3 (4.0-10.0)
[2020-07-21] MEDS: PANTOPRAZOLE 40 MG TABLET PO SCH (10:33)
[2020-07-21] MEDS: CLOPIDOGREL BISULFATE 75 MG TABLET (FP) PO SCH (10:33)
[2020-07-21] MEDS: CARVEDILOL 6.25 MG TABLET (FP) PO SCH ×2 (10:34→22:10)
[2020-07-21] MEDS: HYDROCHLOROTHIAZIDE 25 MG TABLET (FP) PO SCH (10:34)
[2020-07-21] MEDS: NIFEdipine E.R. 30 MG TABLET PO SCH (10:34)
[2020-07-21] MEDS: DOCUSATE SODIUM 100 MG CAPSULE (FP) PO SCH (10:35)
[2020-07-21] MEDS: FERROUS SO4 325 MG TABLET (FP) PO SCH (10:35)
[2020-07-21] MEDS: TAMSULOSIN HCL 0.4 MG CAP PO SCH (10:35)
[2020-07-21] MEDS: RANOLAZINE E.R. 500 MG TABLET (FP) PO SCH ×2 (10:36→22:09)
[2020-07-21] MEDS: PRENATAL VITAMINS W/ FOLIC ACID TABLET (FP) PO SCH (10:36)
[2020-07-21] MEDS: LACTULOSE 20 GM/30 ML UDC (FOR ORAL USE ONLY) PO SCH (10:37)
[2020-07-21] MEDS: ASPIRIN 81 MG CHEWABLE TABLETS PO SCH (10:37)
[2020-07-21] MEDS: diazePAM 5 MG TABLET PO PRN (10:41)
[2020-07-21] MEDS: hydrOXYzine PAMOATE 50 MG CAPSULE (FP) PO PRN (13:58)
[2020-07-21] MEDS: MELATONIN 5 MG TABLETS PO SCH (22:09)
[2020-07-21] MEDS: ATORVASTATIN CA 80 MG TABLET (FP) PO SCH (22:10)
[2020-07-21] MEDS: THIAMINE HCL 100 MG TABLET (FP) PO SCH (22:10)
[2020-07-22] MEDS: hydrALAZINE HCL 25 MG TABLET (FP) PO SCH ×3 (05:05→22:28)
[2020-07-22] MEDS: diazePAM 5 MG TABLET PO SCH ×2 (05:05→18:08)
[2020-07-22] MEDS: TAMSULOSIN HCL 0.4 MG CAP PO SCH (07:46)
[2020-07-22 08:06] LABS: SARS-CoV-2 NAA Not Detected (Not Detected)
[2020-07-22] MEDS ORDERED: METHADONE HCL 5 MG TABLET (FOR DETOX USE ONLY) ONE (09:14)
[2020-07-22] MEDS ORDERED: METHADONE HCL 10 MG TABLET (FOR DETOX USE ONLY) ONE (09:15)
[2020-07-22] MEDS ORDERED: METHADONE (DETOX) 10 MG, METHADONE (DETOX) 5 MG PO ONE (10:00)
[2020-07-22] MEDS: PRENATAL VITAMINS W/ FOLIC ACID TABLET (FP) PO SCH (10:05)
[2020-07-22] MEDS: RANOLAZINE E.R. 500 MG TABLET (FP) PO SCH ×2 (10:05→22:20)
[2020-07-22] MEDS: DOCUSATE SODIUM 100 MG CAPSULE (FP) PO SCH (10:05)
[2020-07-22] MEDS: CLOPIDOGREL BISULFATE 75 MG TABLET (FP) PO SCH (10:05)
[2020-07-22] MEDS: ASPIRIN 81 MG CHEWABLE TABLETS PO SCH (10:05)
[2020-07-22] MEDS: HYDROCHLOROTHIAZIDE 25 MG TABLET (FP) PO SCH (10:05)
[2020-07-22] MEDS: NIFEdipine E.R. 30 MG TABLET PO SCH (10:05)
[2020-07-22] MEDS: CARVEDILOL 6.25 MG TABLET (FP) PO SCH ×2 (10:06→22:20)
[2020-07-22] MEDS: diazePAM 5 MG TABLET PO PRN (10:07)
[2020-07-22] MEDS: PANTOPRAZOLE 40 MG TABLET PO SCH (10:08)
[2020-07-22] MEDS: FERROUS SO4 325 MG TABLET (FP) PO SCH (10:08)
[2020-07-22] MEDS: LACTULOSE 20 GM/30 ML UDC (FOR ORAL USE ONLY) PO SCH (10:09)
[2020-07-22] MEDS: hydrOXYzine PAMOATE 50 MG CAPSULE (FP) PO PRN (12:30)
[2020-07-22] MEDS: ATORVASTATIN CA 80 MG TABLET (FP) PO SCH (22:19)
[2020-07-22] MEDS: MELATONIN 5 MG TABLETS PO SCH (22:19)
[2020-07-22] MEDS: THIAMINE HCL 100 MG TABLET (FP) PO SCH (22:20)
[2020-07-23] MEDS: hydrALAZINE HCL 25 MG TABLET (FP) PO SCH ×3 (05:22→22:08)
[2020-07-23] MEDS: METHOCARBAMOL 500 MG TABLET PO PRN ×3 (05:25→18:29)
[2020-07-23] MEDS ORDERED: diazePAM 5 MG TABLET PO ONE (06:00)
[2020-07-23] MEDS ORDERED: METHADONE HCL 10 MG TABLET (FOR DETOX USE ONLY) PO ONE (10:00)
[2020-07-23] MEDS: RANOLAZINE E.R. 500 MG TABLET (FP) PO SCH ×2 (10:04→22:10)
[2020-07-23] MEDS: NIFEdipine E.R. 30 MG TABLET PO SCH (10:04)
[2020-07-23] MEDS: DOCUSATE SODIUM 100 MG CAPSULE (FP) PO SCH (10:05)
[2020-07-23] MEDS: PANTOPRAZOLE 40 MG TABLET PO SCH (10:05)
[2020-07-23] MEDS: FERROUS SO4 325 MG TABLET (FP) PO SCH (10:05)
[2020-07-23] MEDS: CLOPIDOGREL BISULFATE 75 MG TABLET (FP) PO SCH (10:05)
[2020-07-23] MEDS: TAMSULOSIN HCL 0.4 MG CAP PO SCH (10:05)
[2020-07-23] MEDS: HYDROCHLOROTHIAZIDE 25 MG TABLET (FP) PO SCH (10:05)
[2020-07-23] MEDS: ASPIRIN 81 MG CHEWABLE TABLETS PO SCH (10:06)
[2020-07-23] MEDS: CARVEDILOL 6.25 MG TABLET (FP) PO SCH ×2 (10:06→22:08)
[2020-07-23] MEDS: PRENATAL VITAMINS W/ FOLIC ACID TABLET (FP) PO SCH (10:07)
[2020-07-23] MEDS: LACTULOSE 20 GM/30 ML UDC (FOR ORAL USE ONLY) PO SCH (10:07)
[2020-07-23] MEDS: hydrOXYzine PAMOATE 50 MG CAPSULE (FP) PO PRN ×2 (10:10→18:29)
[2020-07-23] MEDS: ATORVASTATIN CA 80 MG TABLET (FP) PO SCH (22:09)
[2020-07-23] MEDS: THIAMINE HCL 100 MG TABLET (FP) PO SCH (22:10)
[2020-07-23] MEDS: MELATONIN 5 MG TABLETS PO SCH (22:10)
[2020-07-24] MEDS: METHOCARBAMOL 500 MG TABLET PO PRN ×3 (05:08→22:19)
[2020-07-24] MEDS ORDERED: METHADONE HCL 5 MG TABLET (FOR DETOX USE ONLY) PO ONE (06:00)
[2020-07-24] MEDS: hydrALAZINE HCL 25 MG TABLET (FP) PO SCH ×3 (07:34→22:18)
[2020-07-24] MEDS: TAMSULOSIN HCL 0.4 MG CAP PO SCH (07:34)
[2020-07-24] MEDS: PRENATAL VITAMINS W/ FOLIC ACID TABLET (FP) PO SCH (09:49)
[2020-07-24] MEDS: LACTULOSE 20 GM/30 ML UDC (FOR ORAL USE ONLY) PO SCH (09:49)
[2020-07-24] MEDS: ASPIRIN 81 MG CHEWABLE TABLETS PO SCH (09:49)
[2020-07-24] MEDS: CARVEDILOL 6.25 MG TABLET (FP) PO SCH ×2 (09:50→22:18)
[2020-07-24] MEDS: FERROUS SO4 325 MG TABLET (FP) PO SCH (09:50)
[2020-07-24] MEDS: DOCUSATE SODIUM 100 MG CAPSULE (FP) PO SCH (09:50)
[2020-07-24] MEDS: PANTOPRAZOLE 40 MG TABLET PO SCH (09:51)
[2020-07-24] MEDS: NIFEdipine E.R. 30 MG TABLET PO SCH (09:51)
[2020-07-24] MEDS: HYDROCHLOROTHIAZIDE 25 MG TABLET (FP) PO SCH (09:51)
[2020-07-24] MEDS: CLOPIDOGREL BISULFATE 75 MG TABLET (FP) PO SCH (09:51)
[2020-07-24] MEDS: RANOLAZINE E.R. 500 MG TABLET (FP) PO SCH ×2 (09:52→22:18)
[2020-07-24] MEDS: hydrOXYzine PAMOATE 50 MG CAPSULE (FP) PO PRN ×3 (09:54→22:23)
[2020-07-24] MEDS: THIAMINE HCL 100 MG TABLET (FP) PO SCH (22:17)
[2020-07-24] MEDS: ATORVASTATIN CA 80 MG TABLET (FP) PO SCH (22:17)
[2020-07-24] MEDS: MELATONIN 5 MG TABLETS PO SCH (22:18)
[2020-07-25] MEDS: hydrOXYzine PAMOATE 50 MG CAPSULE (FP) PO PRN ×2 (01:42→09:50)
[2020-07-25] MEDS: METHOCARBAMOL 500 MG TABLET PO PRN ×2 (05:17→13:36)
[2020-07-25] MEDS: hydrALAZINE HCL 25 MG TABLET (FP) PO SCH ×3 (05:17→22:07)
[2020-07-25] MEDS: CLOPIDOGREL BISULFATE 75 MG TABLET (FP) PO SCH (09:47)
[2020-07-25] MEDS: ASPIRIN 81 MG CHEWABLE TABLETS PO SCH (09:47)
[2020-07-25] MEDS: TAMSULOSIN HCL 0.4 MG CAP PO SCH (09:47)
[2020-07-25] MEDS: HYDROCHLOROTHIAZIDE 25 MG TABLET (FP) PO SCH (09:48)
[2020-07-25] MEDS: DOCUSATE SODIUM 100 MG CAPSULE (FP) PO SCH (09:48)
[2020-07-25] MEDS: FERROUS SO4 325 MG TABLET (FP) PO SCH (09:48)
[2020-07-25] MEDS: NIFEdipine E.R. 30 MG TABLET PO SCH (09:48)
[2020-07-25] MEDS: PANTOPRAZOLE 40 MG TABLET PO SCH (09:48)
[2020-07-25] MEDS: PRENATAL VITAMINS W/ FOLIC ACID TABLET (FP) PO SCH (09:49)
[2020-07-25] MEDS: RANOLAZINE E.R. 500 MG TABLET (FP) PO SCH ×2 (09:49→22:07)
[2020-07-25] MEDS: LACTULOSE 20 GM/30 ML UDC (FOR ORAL USE ONLY) PO SCH (09:49)
[2020-07-25] MEDS: CARVEDILOL 6.25 MG TABLET (FP) PO SCH ×2 (09:49→22:07)
[2020-07-25] MEDS: THIAMINE HCL 100 MG TABLET (FP) PO SCH (22:07)
[2020-07-25] MEDS: MELATONIN 5 MG TABLETS PO SCH (22:08)
[2020-07-25] MEDS: ATORVASTATIN CA 80 MG TABLET (FP) PO SCH (22:08)
[2020-07-26] MEDS: hydrOXYzine PAMOATE 50 MG CAPSULE (FP) PO PRN (02:19)
[2020-07-26] MEDS: hydrALAZINE HCL 25 MG TABLET (FP) PO SCH (05:15)
[2020-07-26] MEDS: TAMSULOSIN HCL 0.4 MG CAP PO SCH (08:58)
[2020-07-26] MEDS: PANTOPRAZOLE 40 MG TABLET PO SCH (08:59)
[2020-07-26] MEDS: HYDROCHLOROTHIAZIDE 25 MG TABLET (FP) PO SCH (08:59)
[2020-07-26] MEDS: ASPIRIN 81 MG CHEWABLE TABLETS PO SCH (08:59)
[2020-07-26] MEDS: FERROUS SO4 325 MG TABLET (FP) PO SCH (08:59)
[2020-07-26] MEDS: NIFEdipine E.R. 30 MG TABLET PO SCH (08:59)
[2020-07-26] MEDS: CARVEDILOL 6.25 MG TABLET (FP) PO SCH (08:59)
[2020-07-26] MEDS: CLOPIDOGREL BISULFATE 75 MG TABLET (FP) PO SCH (08:59)
[2020-07-26] MEDS: DOCUSATE SODIUM 100 MG CAPSULE (FP) PO SCH (09:00)
[2020-07-26] MEDS: RANOLAZINE E.R. 500 MG TABLET (FP) PO SCH (09:01)
[2020-07-26] MEDS: PRENATAL VITAMINS W/ FOLIC ACID TABLET (FP) PO SCH (09:01)
[2020-07-26] MEDS: LACTULOSE 20 GM/30 ML UDC (FOR ORAL USE ONLY) PO SCH (09:01)
[2020-07-26 09:10] VITALS: BP 158/84; PULSE 63; TEMP 96.8
== END 2020-07-26 09:21 | disposition home or self-care (01) | DRG 773 ==
LOC: YASAS 14:30 → Y6N 18:25
PROVIDERS: ADMIT Allergy & Immunology; ATTEND Allergy & Immunology
PROC: HZ2ZZZZ Detoxification Services for Substance Abuse Treatment (ICD-10-PCS; principal; 2020-07-19)
DX: F11.23 Opioid dependence with withdrawal (principal); F10.230 Alcohol dependence with withdrawal, uncomplicated; F10.280 Alcohol dependence with alcohol-induced anxiety disorder; F19.282 Other psychoactive substance dependence with psychoactive substance-induced sleep disorder; F19.24 Other psychoactive substance dependence with psychoactive substance-induced mood disorder; F41.9 Anxiety disorder, unspecified; A53.0 Latent syphilis, unspecified as early or late; D64.9 Anemia, unspecified; E78.5 Hyperlipidemia, unspecified; I25.10 Atherosclerotic heart disease of native coronary artery without angina pectoris; I10 Essential (primary) hypertension; Z95.1 Presence of aortocoronary bypass graft; K21.9 Gastro-esophageal reflux disease without esophagitis; Z88.0 Allergy status to penicillin
CPT/HCPCS: 36415; 80053; 82947; 85027; 86593; 86780; C9803; U0003; U0005

== ENCOUNTER 2020-10-17 11:58 | Inpatient (IN) | payer OTHER ==
[2020-10-17] MEDS ORDERED: clonazePAM 0.5 MG ODT TABLETS SL PRN (15:15)
[2020-10-17] MEDS ORDERED: MAGNESIUM CITRATE 300 ML BOTTLE PO PRN (15:15)
[2020-10-17] MEDS ORDERED: MAG HYDROX/AL HYDROX/SIMETH 30 ML UNIT-DOSE CUP PO PRN (15:15)
[2020-10-17] MEDS ORDERED: IBUPROFEN 400 MG TABLET (FP) PO PRN (15:15)
[2020-10-17] MEDS ORDERED: MAGNESIUM HYDROX 2400MG/30ML ORAL SUSPENSION 30 ML CUP PO PRN (15:15)
[2020-10-17] MEDS ORDERED: ONDANSETRON *ODT* 4 MG TABLET SL PRN (15:15)
[2020-10-17] MEDS ORDERED: MENTHOL/PHENOL 1 EACH UD MM PRN (15:15)
[2020-10-17] MEDS ORDERED: cloNIDine HCL 0.1 MG TABLET PO PRN ×2 (15:15→19:27)
[2020-10-17] MEDS ORDERED: BISMUTH SUBSALICYLATE 524 MG/30 ML PO PRN (15:15)
[2020-10-17] MEDS ORDERED: ACETAMINOPHEN 325 MG TABLET (FP) PO PRN ×2 (15:15)
[2020-10-17] MEDS ORDERED: hydrOXYzine PAMOATE 25 MG CAPSULE (FP) PO PRN (15:29)
[2020-10-17] MEDS ORDERED: methaDONE HCL 10 MG TABLET (FOR DETOX USE ONLY) PO ONE ×2 (15:45→19:27)
[2020-10-17] MEDS ORDERED: hydrOXYzine PAMOATE 25 MG CAPSULE (FP) PO SCH (18:00)
[2020-10-17] MEDS ORDERED: methaDONE HCL 10 MG TABLET (FOR DETOX USE ONLY) ONE (19:43)
[2020-10-17] MEDS: METHOCARBAMOL 500 MG TABLET PO PRN (19:48)
[2020-10-17] MEDS: ATORVASTATIN CA 80 MG TABLET (FP) PO SCH (22:52)
[2020-10-17] MEDS: THIAMINE HCL 100 MG TABLET (FP) PO SCH (22:52)
[2020-10-17] MEDS: MELATONIN 5 MG TABLETS PO SCH (22:52)
[2020-10-17] MEDS: RANOLAZINE E.R. 500 MG TABLET (FP) PO SCH (22:52)
[2020-10-17] MEDS: CARVEDILOL 3.125 MG TABLET (FP) PO SCH (22:52)
[2020-10-17] MEDS: TAMSULOSIN HCL 0.4 MG CAP PO SCH (22:52)
[2020-10-17] MEDS: FAMOTIDINE 20 MG TABLET PO SCH (22:52)
[2020-10-17] MEDS: clonazePAM 0.5 MG ODT TABLETS SL PRN (22:56)
[2020-10-18] MEDS: METHOCARBAMOL 500 MG TABLET PO PRN ×2 (06:51→17:27)
[2020-10-18] MEDS: clonazePAM 0.5 MG ODT TABLETS SL PRN ×3 (06:53→23:09)
[2020-10-18] MEDS: CLOPIDOGREL BISULFATE 75 MG TABLET (FP) PO SCH (06:53)
[2020-10-18] MEDS ORDERED: methaDONE HCL 10 MG TABLET (FOR DETOX USE ONLY) PO ONE (10:00)
[2020-10-18] MEDS: CARVEDILOL 3.125 MG TABLET (FP) PO SCH (10:35)
[2020-10-18] MEDS: LOSARTAN POTASSIUM 50 MG TABLET PO SCH (10:35)
[2020-10-18] MEDS: FAMOTIDINE 20 MG TABLET PO SCH ×2 (10:35→23:05)
[2020-10-18] MEDS: ASPIRIN 81 MG CHEWABLE TABLETS PO SCH (10:35)
[2020-10-18] MEDS: RANOLAZINE E.R. 500 MG TABLET (FP) PO SCH (10:35)
[2020-10-18] MEDS: NIFEdipine E.R. 30 MG TABLET PO SCH (10:35)
[2020-10-18] MEDS: PRENATAL VITAMINS W/ FOLIC ACID TABLET (FP) PO SCH (10:36)
[2020-10-18 11:35] LABS: HEMATOCRIT 33.1 % (35.4-49); HEMOGLOBIN 11.1 GM/dL (11.7-16.9); MCH 26.1 pg (25.7-33.7); MCHC 33.7 g/dl (32.0-35.9); MEAN CELL VOLUME 77.5 fl (80-96); MEAN PLT VOLUME 7.4 fl (7.5-11.1); PLATELET COUNT 206 10^3/uL (134-434); RBC 4.27 M/mm3 (4.00-5.60); RDW 16.7 % (11.9-15.9); WHITE BLOOD COUNT 6.3 K/mm3 (4.0-10.0)
[2020-10-18 11:44] LABS: CALCIUM 8.8 mg/dL (8.5-10.1)
[2020-10-18 11:45] LABS: ALBUMIN 3.4 g/dl (3.4-5.0); BLOOD UREA NITROGEN 22.5 mg/dL (7-18)
[2020-10-18 11:48] LABS: CREATININE 1.3 mg/dL (0.55-1.3)
[2020-10-18 11:50] LABS: BILIRUBIN,TOTAL 0.4 mg/dL (0.2-1); TOT PROT 6.8 g/dl (6.4-8.2)
[2020-10-18] MEDS: MELATONIN 5 MG TABLETS PO SCH (23:04)
[2020-10-18] MEDS: TAMSULOSIN HCL 0.4 MG CAP PO SCH (23:04)
[2020-10-18] MEDS: THIAMINE HCL 100 MG TABLET (FP) PO SCH (23:04)
[2020-10-18] MEDS: ATORVASTATIN CA 80 MG TABLET (FP) PO SCH (23:05)
[2020-10-19] MEDS: RANOLAZINE E.R. 500 MG TABLET (FP) PO SCH ×3 (00:28→22:15)
[2020-10-19] MEDS: CARVEDILOL 3.125 MG TABLET (FP) PO SCH ×3 (00:28→22:15)
[2020-10-19] MEDS: CLOPIDOGREL BISULFATE 75 MG TABLET (FP) PO SCH (06:08)
[2020-10-19] MEDS: clonazePAM 0.5 MG ODT TABLETS SL PRN (06:09)
[2020-10-19] MEDS ORDERED: methaDONE HCL 10 MG TABLET (FOR DETOX USE ONLY) ONE (09:29)
[2020-10-19] MEDS ORDERED: methaDONE HCL 10 MG TABLET (FOR DETOX USE ONLY) PO ONE ×2 (10:00)
[2020-10-19] MEDS: PRENATAL VITAMINS W/ FOLIC ACID TABLET (FP) PO SCH (10:17)
[2020-10-19] MEDS: FAMOTIDINE 20 MG TABLET PO SCH ×2 (10:18→22:15)
[2020-10-19] MEDS: NIFEdipine E.R. 30 MG TABLET PO SCH (10:18)
[2020-10-19] MEDS: LOSARTAN POTASSIUM 50 MG TABLET PO SCH (10:18)
[2020-10-19] MEDS: ASPIRIN 81 MG CHEWABLE TABLETS PO SCH (10:18)
[2020-10-19] MEDS: METHOCARBAMOL 500 MG TABLET PO PRN (10:20)
[2020-10-19] MEDS: diazePAM 5 MG TABLET PO PRN ×2 (14:07→22:18)
[2020-10-19] MEDS ORDERED: hydrOXYzine PAMOATE 50 MG CAPSULE (FP) PO PRN (14:16)
[2020-10-19] MEDS: ATORVASTATIN CA 80 MG TABLET (FP) PO SCH (22:15)
[2020-10-19] MEDS: THIAMINE HCL 100 MG TABLET (FP) PO SCH (22:16)
[2020-10-19] MEDS: TAMSULOSIN HCL 0.4 MG CAP PO SCH (22:16)
[2020-10-19] MEDS: SUVOREXANT 10 MG TABLET PO PRN (22:18)
[2020-10-20] MEDS: diazePAM 5 MG TABLET PO PRN ×3 (03:07→22:19)
[2020-10-20] MEDS: CLOPIDOGREL BISULFATE 75 MG TABLET (FP) PO SCH (06:20)
[2020-10-20] MEDS ORDERED: methaDONE HCL 10 MG TABLET (FOR DETOX USE ONLY) PO ONE (10:00)
[2020-10-20] MEDS: RANOLAZINE E.R. 500 MG TABLET (FP) PO SCH ×2 (10:04→22:16)
[2020-10-20] MEDS: NIFEdipine E.R. 30 MG TABLET PO SCH (10:04)
[2020-10-20] MEDS: CARVEDILOL 3.125 MG TABLET (FP) PO SCH ×2 (10:04→22:17)
[2020-10-20] MEDS: LOSARTAN POTASSIUM 50 MG TABLET PO SCH (10:04)
[2020-10-20] MEDS: FAMOTIDINE 20 MG TABLET PO SCH ×2 (10:05→22:17)
[2020-10-20] MEDS: ASPIRIN 81 MG CHEWABLE TABLETS PO SCH (10:07)
[2020-10-20] MEDS: PRENATAL VITAMINS W/ FOLIC ACID TABLET (FP) PO SCH (10:08)
[2020-10-20] MEDS: ATORVASTATIN CA 80 MG TABLET (FP) PO SCH (22:16)
[2020-10-20] MEDS: TAMSULOSIN HCL 0.4 MG CAP PO SCH (22:16)
[2020-10-20] MEDS: THIAMINE HCL 100 MG TABLET (FP) PO SCH (22:17)
[2020-10-20] MEDS: SUVOREXANT 10 MG TABLET PO PRN (22:19)
[2020-10-20] MEDS ORDERED: LACTULOSE 20 GM/30 ML UDC (FOR ORAL USE ONLY) PO ONE (22:49)
[2020-10-21] MEDS: diazePAM 5 MG TABLET PO PRN (05:34)
[2020-10-21] MEDS: CLOPIDOGREL BISULFATE 75 MG TABLET (FP) PO SCH (06:05)
[2020-10-21 09:14] VITALS: BP 141/82; PULSE 97; TEMP 97.3
[2020-10-21] MEDS: PRENATAL VITAMINS W/ FOLIC ACID TABLET (FP) PO SCH (09:40)
[2020-10-21] MEDS: FAMOTIDINE 20 MG TABLET PO SCH (09:41)
[2020-10-21] MEDS: NIFEdipine E.R. 30 MG TABLET PO SCH (09:41)
[2020-10-21] MEDS: CARVEDILOL 3.125 MG TABLET (FP) PO SCH (09:41)
[2020-10-21] MEDS: LOSARTAN POTASSIUM 50 MG TABLET PO SCH (09:41)
[2020-10-21] MEDS: RANOLAZINE E.R. 500 MG TABLET (FP) PO SCH (09:42)
[2020-10-21] MEDS: ASPIRIN 81 MG CHEWABLE TABLETS PO SCH (09:42)
[2020-10-21] MEDS ORDERED: methaDONE HCL 10 MG TABLET (FOR DETOX USE ONLY) PO ONE (10:00)
== END 2020-10-21 10:22 | disposition home or self-care (01) | DRG 773 ==
LOC: YASAS 11:58 → Y3N 17:55
PROVIDERS: ADMIT Allergy & Immunology; ATTEND Allergy & Immunology
PROC: HZ2ZZZZ Detoxification Services for Substance Abuse Treatment (ICD-10-PCS; principal; 2020-10-17)
DX: F11.23 Opioid dependence with withdrawal (principal); F10.230 Alcohol dependence with withdrawal, uncomplicated; F12.10 Cannabis abuse, uncomplicated; F17.210 Nicotine dependence, cigarettes, uncomplicated; F19.280 Other psychoactive substance dependence with psychoactive substance-induced anxiety disorder; F19.282 Other psychoactive substance dependence with psychoactive substance-induced sleep disorder; F19.24 Other psychoactive substance dependence with psychoactive substance-induced mood disorder; F41.8 Other specified anxiety disorders; E78.5 Hyperlipidemia, unspecified; I25.10 Atherosclerotic heart disease of native coronary artery without angina pectoris; I10 Essential (primary) hypertension; Z95.1 Presence of aortocoronary bypass graft; Z88.0 Allergy status to penicillin; Z91.013 Allergy to seafood
CPT/HCPCS: 36415; 80053; 85027; 86593; 86780; 93005; 93010; C9803; J0735; U0003; U0005

== ENCOUNTER 2020-11-18 12:29 | Inpatient (IN) | payer OTHER ==
[2020-11-18 16:21] VITALS: BMI 27.8
[2020-11-18] MEDS ORDERED: clonazePAM 0.5 MG ODT TABLETS SL PRN (17:30)
[2020-11-18] MEDS ORDERED: BISMUTH SUBSALICYLATE 524 MG/30 ML PO PRN (17:30)
[2020-11-18] MEDS ORDERED: NICOTINE 14 MG/24 HOURS TOPICAL PATCH TD PRN (17:30)
[2020-11-18] MEDS ORDERED: MAG HYDROX/AL HYDROX/SIMETH 30 ML UNIT-DOSE CUP PO PRN (17:30)
[2020-11-18] MEDS ORDERED: MAGNESIUM HYDROX 2400MG/30ML ORAL SUSPENSION 30 ML CUP PO PRN (17:30)
[2020-11-18] MEDS ORDERED: MENTHOL/PHENOL 1 EACH UD MM PRN (17:30)
[2020-11-18] MEDS ORDERED: MAGNESIUM CITRATE 300 ML BOTTLE PO PRN (17:30)
[2020-11-18] MEDS ORDERED: ACETAMINOPHEN 325 MG TABLET (FP) PO PRN ×2 (17:30)
[2020-11-18] MEDS ORDERED: IBUPROFEN 400 MG TABLET (FP) PO PRN (17:30)
[2020-11-18] MEDS ORDERED: cloNIDine HCL 0.1 MG TABLET PO PRN (17:30)
[2020-11-18] MEDS ORDERED: ONDANSETRON *ODT* 4 MG TABLET SL PRN (17:30)
[2020-11-18] MEDS ORDERED: NICOTINE 10 MG CARTRIDGE (INHALER) IH PRN (17:30)
[2020-11-18] MEDS ORDERED: methaDONE HCL 10 MG TABLET (FOR DETOX USE ONLY) PO ONE (18:15)
[2020-11-18] MEDS: hydrOXYzine PAMOATE 25 MG CAPSULE (FP) PO SCH ×2 (18:57→22:38)
[2020-11-18] MEDS ORDERED: MELATONIN 5 MG TABLETS PO SCH (22:00)
[2020-11-18] MEDS: RANOLAZINE E.R. 500 MG TABLET (FP) PO SCH (22:38)
[2020-11-18] MEDS: METHOCARBAMOL 500 MG TABLET PO PRN (22:38)
[2020-11-18] MEDS: THIAMINE HCL 100 MG TABLET (FP) PO SCH (22:38)
[2020-11-19] MEDS: hydrOXYzine PAMOATE 25 MG CAPSULE (FP) PO SCH ×2 (06:01→10:38)
[2020-11-19] MEDS ORDERED: methaDONE HCL 10 MG TABLET (FOR DETOX USE ONLY) ONE (09:50)
[2020-11-19] MEDS ORDERED: hydrOXYzine PAMOATE 25 MG CAPSULE (FP) PO SCH (10:01)
[2020-11-19] MEDS: RANOLAZINE E.R. 500 MG TABLET (FP) PO SCH ×2 (10:21→23:13)
[2020-11-19] MEDS: LOSARTAN POTASSIUM 50 MG TABLET PO SCH (10:22)
[2020-11-19] MEDS: PANTOPRAZOLE 40 MG TABLET PO SCH (10:22)
[2020-11-19] MEDS: NIFEdipine E.R. 30 MG TABLET PO SCH (10:22)
[2020-11-19] MEDS: CLOPIDOGREL BISULFATE 75 MG TABLET (FP) PO SCH (10:22)
[2020-11-19] MEDS: METHOCARBAMOL 500 MG TABLET PO PRN (10:22)
[2020-11-19] MEDS: ASPIRIN 81 MG CHEWABLE TABLETS PO SCH (10:22)
[2020-11-19] MEDS ORDERED: LACTULOSE 20 GM/30 ML UDC (FOR ORAL USE ONLY) PO PRN (11:13)
[2020-11-19 14:37] LABS: HEMATOCRIT 34.1 % (35.4-49); HEMOGLOBIN 11.6 GM/dL (11.7-16.9); MCH 26.8 pg (25.7-33.7); MCHC 34.1 g/dl (32.0-35.9); MEAN CELL VOLUME 78.8 fl (80-96); MEAN PLT VOLUME 7.3 fl (7.5-11.1); PLATELET COUNT 217 10^3/uL (134-434); RBC 4.32 M/mm3 (4.00-5.60); RDW 17.7 % (11.9-15.9); WHITE BLOOD COUNT 7.2 K/mm3 (4.0-10.0)
[2020-11-19] MEDS: CARVEDILOL 3.125 MG TABLET (FP) PO SCH ×2 (14:38→23:12)
[2020-11-19 14:39] LABS: ALBUMIN 3.3 g/dl (3.4-5.0); BLOOD UREA NITROGEN 19.6 mg/dL (7-18); CALCIUM 8.9 mg/dL (8.5-10.1)
[2020-11-19 14:41] LABS: CREATININE 1.2 mg/dL (0.55-1.3)
[2020-11-19 14:42] LABS: BILIRUBIN,TOTAL 0.8 mg/dL (0.2-1)
[2020-11-19] MEDS ORDERED: SUVOREXANT 10 MG TABLET PO PRN (22:00)
[2020-11-19] MEDS: THIAMINE HCL 100 MG TABLET (FP) PO SCH (23:14)
[2020-11-20] MEDS ORDERED: busPIRone HCL 5 MG TABLET PO ONE (06:48)
[2020-11-20] MEDS ORDERED: methaDONE HCL 10 MG TABLET (FOR DETOX USE ONLY) PO ONE (10:00)
[2020-11-20] MEDS: RANOLAZINE E.R. 500 MG TABLET (FP) PO SCH ×2 (10:32→23:12)
[2020-11-20] MEDS: LOSARTAN POTASSIUM 50 MG TABLET PO SCH (10:32)
[2020-11-20] MEDS: PANTOPRAZOLE 40 MG TABLET PO SCH (10:32)
[2020-11-20] MEDS: CLOPIDOGREL BISULFATE 75 MG TABLET (FP) PO SCH (10:32)
[2020-11-20] MEDS: ASPIRIN 81 MG CHEWABLE TABLETS PO SCH (10:32)
[2020-11-20] MEDS: NIFEdipine E.R. 30 MG TABLET PO SCH (10:32)
[2020-11-20] MEDS: CARVEDILOL 3.125 MG TABLET (FP) PO SCH ×2 (10:33→21:34)
[2020-11-20] MEDS ORDERED: LACTULOSE 20 GM/30 ML UDC (FOR ORAL USE ONLY) PO ONE (12:48)
[2020-11-20] MEDS ORDERED: TAMSULOSIN HCL 0.4 MG CAP PO SCH (13:00)
[2020-11-20] MEDS: METHOCARBAMOL 500 MG TABLET PO PRN (21:34)
[2020-11-20] MEDS: THIAMINE HCL 100 MG TABLET (FP) PO SCH (21:34)
[2020-11-20 23:18] VITALS: TEMP 97.1
[2020-11-21 04:23] VITALS: BP 180/92; PULSE 71
[2020-11-22] MEDS ORDERED: methaDONE HCL 10 MG TABLET (FOR DETOX USE ONLY) PO ONE (10:00)
== END 2020-11-21 15:15 | disposition short-term general hospital (02) | DRG 773 ==
LOC: YASAS 12:29 → Y3N 17:34
PROVIDERS: ADMIT Allergy & Immunology; ATTEND Allergy & Immunology
PROC: HZ2ZZZZ Detoxification Services for Substance Abuse Treatment (ICD-10-PCS; principal; 2020-11-18)
DX: F11.23 Opioid dependence with withdrawal (principal); F12.10 Cannabis abuse, uncomplicated; F17.210 Nicotine dependence, cigarettes, uncomplicated; F19.280 Other psychoactive substance dependence with psychoactive substance-induced anxiety disorder; F19.282 Other psychoactive substance dependence with psychoactive substance-induced sleep disorder; F19.24 Other psychoactive substance dependence with psychoactive substance-induced mood disorder; F41.9 Anxiety disorder, unspecified; I25.10 Atherosclerotic heart disease of native coronary artery without angina pectoris; I10 Essential (primary) hypertension; Z95.1 Presence of aortocoronary bypass graft; R07.9 Chest pain, unspecified; E78.5 Hyperlipidemia, unspecified; K59.03 Drug induced constipation; N40.0 Benign prostatic hyperplasia without lower urinary tract symptoms; Z86.19 Personal history of other infectious and parasitic diseases; Z88.8 Allergy status to other drugs, medicaments and biological substances; Z91.013 Allergy to seafood
CPT/HCPCS: 36415; 80053; 85027; 86593; 86780; 93005; 93010; C9803; U0003; U0005

== ENCOUNTER 2020-11-22 19:23 | Inpatient (IN) | payer OTHER ==
[2020-11-22] MEDS ORDERED: IBUPROFEN 400 MG TABLET (FP) PO PRN (20:09)
[2020-11-22] MEDS ORDERED: MAGNESIUM CITRATE 300 ML BOTTLE PO PRN (20:09)
[2020-11-22] MEDS ORDERED: P-EPHED 60MG/TRIPROLIDI 2.5MG TABLET PO PRN (20:09)
[2020-11-22] MEDS ORDERED: LOPERAMIDE HCL 2 MG CAPSULE PO PRN (20:09)
[2020-11-22] MEDS ORDERED: MENTHOL/PHENOL 1 EACH UD MM PRN (20:09)
[2020-11-22] MEDS ORDERED: MAG HYDROX/AL HYDROX/SIMETH 30 ML UNIT-DOSE CUP PO PRN (20:09)
[2020-11-22] MEDS ORDERED: ACETAMINOPHEN 325 MG TABLET (FP) PO PRN (20:09)
[2020-11-22] MEDS ORDERED: guaiFENesin 200 MG/10 ML 10 ML UNIT-DOSE CUPS PO PRN (20:09)
[2020-11-22] MEDS ORDERED: MAGNESIUM HYDROX 2400MG/30ML ORAL SUSPENSION 30 ML CUP PO PRN (20:09)
[2020-11-22 21:21] VITALS: BMI 27.8
[2020-11-22] MEDS ORDERED: MELATONIN 5 MG TABLETS PO SCH (22:00)
[2020-11-22] MEDS ORDERED: TAMSULOSIN HCL 0.4 MG CAP PO SCH (22:00)
[2020-11-22] MEDS ORDERED: ATORVASTATIN CA 40 MG TABLET (FP) PO SCH (22:00)
[2020-11-22] MEDS: CARVEDILOL 3.125 MG TABLET (FP) PO SCH (22:23)
[2020-11-22] MEDS: THIAMINE HCL 100 MG TABLET (FP) PO SCH (22:27)
[2020-11-22] MEDS: RANOLAZINE E.R. 500 MG TABLET (FP) PO SCH (23:04)
[2020-11-22] MEDS: busPIRone HCL 5 MG TABLET PO ONE ×2 (23:04→23:09)
[2020-11-23] MEDS ORDERED: PT OWN MED DRAWER 7, Y5N ONE ×4 (08:25→19:30)
[2020-11-23] MEDS: RANOLAZINE E.R. 500 MG TABLET (FP) PO SCH ×2 (09:02→21:12)
[2020-11-23] MEDS: CARVEDILOL 3.125 MG TABLET (FP) PO SCH (09:02)
[2020-11-23] MEDS ORDERED: NIFEdipine E.R. 30 MG TABLET PO SCH (10:00)
[2020-11-23] MEDS ORDERED: ASPIRIN 81 MG CHEWABLE TABLETS PO SCH (10:00)
[2020-11-23] MEDS ORDERED: PANTOPRAZOLE 40 MG TABLET PO SCH (10:00)
[2020-11-23] MEDS ORDERED: PRENATAL VITAMINS W/ FOLIC ACID TABLET (FP) PO SCH (10:00)
[2020-11-23] MEDS ORDERED: CLOPIDOGREL BISULFATE 75 MG TABLET (FP) PO SCH (10:00)
[2020-11-23] MEDS ORDERED: LOSARTAN POTASSIUM 50 MG TABLET PO SCH (10:00)
[2020-11-23] MEDS ORDERED: LACTULOSE 20 GM/30 ML UDC (FOR ORAL USE ONLY) PO ONE (15:30)
[2020-11-23] MEDS ORDERED: CYCLOBENZAPRINE HCL 10 MG TABLET (FP) PO ONE (16:00)
[2020-11-23] MEDS: THIAMINE HCL 100 MG TABLET (FP) PO SCH (21:12)
[2020-11-23] MEDS ORDERED: ATORVASTATIN CA 20 MG TABLET (FP) PO SCH (22:00)
[2020-11-23] MEDS ORDERED: CYCLOBENZAPRINE HCL 10 MG TABLET (FP) PO SCH ×2 (22:00)
[2020-11-23] MEDS ORDERED: traZODone HCL 50 MG TABLET (FP) PO SCH (22:00)
[2020-11-23] MEDS ORDERED: FAMOTIDINE 20 MG TABLET PO SCH (22:00)
[2020-11-24] MEDS ORDERED: NIFEdipine E.R. 30 MG TABLET PO SCH (06:00)
[2020-11-24] MEDS ORDERED: TAMSULOSIN HCL 0.4 MG CAP PO SCH (06:00)
[2020-11-24] MEDS ORDERED: ASPIRIN 81 MG CHEWABLE TABLETS PO SCH (06:00)
[2020-11-24] MEDS ORDERED: PRENATAL VITAMINS W/ FOLIC ACID TABLET (FP) PO SCH (06:00)
[2020-11-24] MEDS ORDERED: CLOPIDOGREL BISULFATE 75 MG TABLET (FP) PO SCH (06:00)
[2020-11-24] MEDS ORDERED: CARVEDILOL 3.125 MG TABLET (FP) PO SCH (06:00)
[2020-11-24] MEDS ORDERED: LOSARTAN POTASSIUM 50 MG TABLET PO SCH (06:00)
[2020-11-24] MEDS ORDERED: PT OWN MED DRAWER 7, Y5N ONE ×2 (06:28→06:41)
[2020-11-24] MEDS: RANOLAZINE E.R. 500 MG TABLET (FP) PO SCH (06:30)
[2020-11-24 06:36] VITALS: BP 175/80; PULSE 70; TEMP 97.3
== END 2020-11-24 08:05 | disposition left against medical advice (07) | DRG 770 ==
LOC: YASAS 19:23 → Y3E 20:26
PROVIDERS: ADMIT Allergy & Immunology; ATTEND Allergy & Immunology
PROC: HZ42ZZZ Group Counseling for Substance Abuse Treatment, Cognitive-Behavioral (ICD-10-PCS; principal; 2020-11-22)
DX: F11.20 Opioid dependence, uncomplicated (principal); F10.20 Alcohol dependence, uncomplicated; F41.9 Anxiety disorder, unspecified; F19.24 Other psychoactive substance dependence with psychoactive substance-induced mood disorder; F19.280 Other psychoactive substance dependence with psychoactive substance-induced anxiety disorder; I10 Essential (primary) hypertension; I25.10 Atherosclerotic heart disease of native coronary artery without angina pectoris; E78.5 Hyperlipidemia, unspecified; R07.9 Chest pain, unspecified; Z95.1 Presence of aortocoronary bypass graft; Z95.5 Presence of coronary angioplasty implant and graft
CPT/HCPCS: 36415; 71045-TC-FY; 80048; 80053; 82550; 82553; 83735; 83880; 84100; 84484; 85025; 85027; 93005; 93010; 93306-TC; 99285-25; G0378

== ENCOUNTER 2020-12-12 14:48 | Inpatient (IN) | payer OTHER ==
[2020-12-12 21:55] VITALS: BMI 29.1
[2020-12-12] MEDS ORDERED: MENTHOL/PHENOL 1 EACH UD MM PRN (22:29)
[2020-12-12] MEDS ORDERED: P-EPHED 60MG/TRIPROLIDI 2.5MG TABLET PO PRN (22:29)
[2020-12-12] MEDS ORDERED: DICYCLOMINE HCL 10 MG CAPSULE PO PRN (22:29)
[2020-12-12] MEDS ORDERED: ACETAMINOPHEN 325 MG TABLET (FP) PO PRN ×2 (22:29)
[2020-12-12] MEDS ORDERED: MAG HYDROX/AL HYDROX/SIMETH 30 ML UNIT-DOSE CUP PO PRN (22:29)
[2020-12-12] MEDS ORDERED: MAGNESIUM CITRATE 300 ML BOTTLE PO PRN (22:29)
[2020-12-12] MEDS ORDERED: methaDONE HCL 10 MG TABLET (FOR DETOX USE ONLY) PO ONE (22:31)
[2020-12-12] MEDS: diphenhydrAMINE HCL 25 MG CAPSULE (FP) PO PRN (23:33)
[2020-12-12] MEDS: METHOCARBAMOL 500 MG TABLET PO PRN (23:33)
[2020-12-13] MEDS ORDERED: methaDONE HCL 10 MG TABLET (FOR DETOX USE ONLY) ONE (09:45)
[2020-12-13] MEDS: LOSARTAN POTASSIUM 50 MG TABLET PO SCH (10:38)
[2020-12-13] MEDS: PRENATAL VITAMINS W/ FOLIC ACID TABLET (FP) PO SCH (10:38)
[2020-12-13] MEDS: ASPIRIN 81 MG CHEWABLE TABLETS PO SCH (10:38)
[2020-12-13] MEDS: CLOPIDOGREL BISULFATE 75 MG TABLET (FP) PO SCH (10:38)
[2020-12-13] MEDS: PANTOPRAZOLE 20 MG TABLET PO SCH (10:39)
[2020-12-13] MEDS: NIFEdipine E.R. 30 MG TABLET PO SCH (10:39)
[2020-12-13] MEDS: TAMSULOSIN HCL 0.4 MG CAP PO SCH (10:39)
[2020-12-13] MEDS: RANOLAZINE E.R. 500 MG TABLET (FP) PO SCH ×2 (11:43→21:21)
[2020-12-13] MEDS: CARVEDILOL 3.125 MG TABLET (FP) PO SCH ×2 (11:43→21:21)
[2020-12-13] MEDS ORDERED: LISINOPRIL 5 MG TABLET PO ONE (17:35)
[2020-12-13] MEDS: MELATONIN 5 MG TABLETS PO SCH (21:21)
[2020-12-13] MEDS: THIAMINE HCL 100 MG TABLET (FP) PO SCH (21:21)
[2020-12-13] MEDS: ATORVASTATIN CA 40 MG TABLET (FP) PO SCH (21:21)
[2020-12-13] MEDS: diphenhydrAMINE HCL 25 MG CAPSULE (FP) PO PRN (21:26)
[2020-12-14] MEDS: TAMSULOSIN HCL 0.4 MG CAP PO SCH (07:57)
[2020-12-14] MEDS ORDERED: methaDONE HCL 10 MG TABLET (FOR DETOX USE ONLY) PO ONE (10:00)
[2020-12-14] MEDS: CARVEDILOL 3.125 MG TABLET (FP) PO SCH ×2 (10:29→22:39)
[2020-12-14] MEDS: ASPIRIN 81 MG CHEWABLE TABLETS PO SCH (10:29)
[2020-12-14] MEDS: RANOLAZINE E.R. 500 MG TABLET (FP) PO SCH ×2 (10:29→22:39)
[2020-12-14] MEDS: PANTOPRAZOLE 20 MG TABLET PO SCH (10:29)
[2020-12-14] MEDS: CLOPIDOGREL BISULFATE 75 MG TABLET (FP) PO SCH (10:29)
[2020-12-14] MEDS: NIFEdipine E.R. 30 MG TABLET PO SCH (10:29)
[2020-12-14] MEDS: LOSARTAN POTASSIUM 50 MG TABLET PO SCH (10:30)
[2020-12-14] MEDS: METHOCARBAMOL 500 MG TABLET PO PRN (10:30)
[2020-12-14] MEDS: PRENATAL VITAMINS W/ FOLIC ACID TABLET (FP) PO SCH (10:30)
[2020-12-14] MEDS: diazePAM 5 MG TABLET PO PRN ×2 (14:24→22:39)
[2020-12-14] MEDS: diphenhydrAMINE HCL 25 MG CAPSULE (FP) PO PRN (22:38)
[2020-12-14] MEDS: THIAMINE HCL 100 MG TABLET (FP) PO SCH (22:38)
[2020-12-14] MEDS: ATORVASTATIN CA 40 MG TABLET (FP) PO SCH (22:39)
[2020-12-14] MEDS: MELATONIN 5 MG TABLETS PO SCH (22:39)
[2020-12-15] MEDS ORDERED: methaDONE HCL 10 MG TABLET (FOR DETOX USE ONLY) ONE (09:34)
[2020-12-15] MEDS: PANTOPRAZOLE 20 MG TABLET PO SCH (10:14)
[2020-12-15] MEDS: TAMSULOSIN HCL 0.4 MG CAP PO SCH (10:14)
[2020-12-15] MEDS: ASPIRIN 81 MG CHEWABLE TABLETS PO SCH (10:14)
[2020-12-15] MEDS: NIFEdipine E.R. 30 MG TABLET PO SCH (10:15)
[2020-12-15] MEDS: RANOLAZINE E.R. 500 MG TABLET (FP) PO SCH ×2 (10:15→22:13)
[2020-12-15] MEDS: CARVEDILOL 3.125 MG TABLET (FP) PO SCH ×2 (10:15→22:13)
[2020-12-15] MEDS: CLOPIDOGREL BISULFATE 75 MG TABLET (FP) PO SCH (10:15)
[2020-12-15] MEDS: LOSARTAN POTASSIUM 50 MG TABLET PO SCH (10:15)
[2020-12-15] MEDS: PRENATAL VITAMINS W/ FOLIC ACID TABLET (FP) PO SCH (10:15)
[2020-12-15] MEDS: diazePAM 5 MG TABLET PO PRN ×2 (12:15→22:13)
[2020-12-15 17:00] LABS: HEMATOCRIT 31.7 % (35.4-49); HEMOGLOBIN 10.8 GM/dL (11.7-16.9); MCH 26.8 pg (25.7-33.7); MCHC 33.9 g/dl (32.0-35.9); MEAN CELL VOLUME 79.1 fl (80-96); PLATELET COUNT 212 10^3/uL (134-434); RBC 4.01 M/mm3 (4.00-5.60); RDW 16.3 % (11.9-15.9); WHITE BLOOD COUNT 6.7 K/mm3 (4.0-10.0)
[2020-12-15 17:02] LABS: CALCIUM 9.1 mg/dL (8.5-10.1)
[2020-12-15 17:07] LABS: BILIRUBIN,TOTAL 0.3 mg/dL (0.2-1); TOT PROT 6.7 g/dl (6.4-8.2)
[2020-12-15] MEDS: ATORVASTATIN CA 40 MG TABLET (FP) PO SCH (22:13)
[2020-12-15] MEDS: diphenhydrAMINE HCL 25 MG CAPSULE (FP) PO PRN (22:13)
[2020-12-15] MEDS: MELATONIN 5 MG TABLETS PO SCH (22:13)
[2020-12-15] MEDS: THIAMINE HCL 100 MG TABLET (FP) PO SCH (22:16)
[2020-12-16] MEDS ORDERED: methaDONE HCL 10 MG TABLET (FOR DETOX USE ONLY) PO ONE (10:00)
[2020-12-16] MEDS: PRENATAL VITAMINS W/ FOLIC ACID TABLET (FP) PO SCH (10:59)
[2020-12-16] MEDS: CARVEDILOL 3.125 MG TABLET (FP) PO SCH ×2 (11:00→22:34)
[2020-12-16] MEDS: NIFEdipine E.R. 30 MG TABLET PO SCH (11:00)
[2020-12-16] MEDS: PANTOPRAZOLE 20 MG TABLET PO SCH (11:00)
[2020-12-16] MEDS: CLOPIDOGREL BISULFATE 75 MG TABLET (FP) PO SCH (11:00)
[2020-12-16] MEDS: ASPIRIN 81 MG CHEWABLE TABLETS PO SCH (11:00)
[2020-12-16] MEDS: LOSARTAN POTASSIUM 50 MG TABLET PO SCH (11:04)
[2020-12-16] MEDS: diazePAM 5 MG TABLET PO PRN ×3 (11:04→22:36)
[2020-12-16] MEDS: TAMSULOSIN HCL 0.4 MG CAP PO SCH (11:05)
[2020-12-16] MEDS: RANOLAZINE E.R. 500 MG TABLET (FP) PO SCH ×2 (12:33→22:34)
[2020-12-16] MEDS: MAGNESIUM HYDROX 2400MG/30ML ORAL SUSPENSION 30 ML CUP PO PRN (17:57)
[2020-12-16] MEDS: MELATONIN 5 MG TABLETS PO SCH (22:33)
[2020-12-16] MEDS: THIAMINE HCL 100 MG TABLET (FP) PO SCH (22:34)
[2020-12-16] MEDS: ATORVASTATIN CA 40 MG TABLET (FP) PO SCH (22:34)
[2020-12-16] MEDS ORDERED: LACTULOSE 20 GM/30 ML UDC (FOR ORAL USE ONLY) PO ONE (22:35)
[2020-12-16] MEDS: diphenhydrAMINE HCL 25 MG CAPSULE (FP) PO PRN (22:36)
[2020-12-17] MEDS: MAGNESIUM HYDROX 2400MG/30ML ORAL SUSPENSION 30 ML CUP PO PRN (06:43)
[2020-12-17] MEDS: TAMSULOSIN HCL 0.4 MG CAP PO SCH (07:32)
[2020-12-17 09:18] VITALS: TEMP 96.3
[2020-12-17 10:25] VITALS: BP 119/69; PULSE 84
[2020-12-17] MEDS: LOSARTAN POTASSIUM 50 MG TABLET PO SCH (10:25)
[2020-12-17] MEDS: NIFEdipine E.R. 30 MG TABLET PO SCH (10:25)
[2020-12-17] MEDS: ASPIRIN 81 MG CHEWABLE TABLETS PO SCH (10:25)
[2020-12-17] MEDS: PANTOPRAZOLE 20 MG TABLET PO SCH (10:25)
[2020-12-17] MEDS: RANOLAZINE E.R. 500 MG TABLET (FP) PO SCH (10:25)
[2020-12-17] MEDS: CARVEDILOL 3.125 MG TABLET (FP) PO SCH (10:25)
[2020-12-17] MEDS: CLOPIDOGREL BISULFATE 75 MG TABLET (FP) PO SCH (10:25)
[2020-12-17] MEDS: PRENATAL VITAMINS W/ FOLIC ACID TABLET (FP) PO SCH (10:26)
== END 2020-12-17 10:57 | disposition home or self-care (01) | DRG 773 ==
LOC: YASAS 14:48 → Y3N 21:14
PROVIDERS: ADMIT Allergy & Immunology; ATTEND Allergy & Immunology
PROC: HZ2ZZZZ Detoxification Services for Substance Abuse Treatment (ICD-10-PCS; principal; 2020-12-12)
DX: F11.23 Opioid dependence with withdrawal (principal); F12.20 Cannabis dependence, uncomplicated; F17.210 Nicotine dependence, cigarettes, uncomplicated; E78.5 Hyperlipidemia, unspecified; I25.10 Atherosclerotic heart disease of native coronary artery without angina pectoris; I10 Essential (primary) hypertension; Z95.1 Presence of aortocoronary bypass graft; Z95.5 Presence of coronary angioplasty implant and graft; Z88.8 Allergy status to other drugs, medicaments and biological substances; Z91.013 Allergy to seafood
CPT/HCPCS: 36415; 80053; 85027; 86593; 86780; C9803; U0003; U0005

== ENCOUNTER 2021-01-13 11:52 | Inpatient (IN) | payer OTHER ==
[2021-01-13] MEDS ORDERED: MAGNESIUM CITRATE 300 ML BOTTLE PO PRN (12:18)
[2021-01-13] MEDS ORDERED: NICOTINE 10 MG CARTRIDGE (INHALER) IH PRN (12:18)
[2021-01-13] MEDS ORDERED: cloNIDine HCL 0.1 MG TABLET PO PRN (12:18)
[2021-01-13] MEDS ORDERED: ONDANSETRON *ODT* 4 MG TABLET SL PRN (12:18)
[2021-01-13] MEDS ORDERED: ACETAMINOPHEN 325 MG TABLET (FP) PO PRN ×2 (12:18)
[2021-01-13] MEDS ORDERED: MENTHOL/PHENOL 1 EACH UD MM PRN (12:18)
[2021-01-13] MEDS ORDERED: methaDONE HCL 10 MG TABLET (FOR DETOX USE ONLY) PO ONE (12:18)
[2021-01-13] MEDS ORDERED: MAG HYDROX/AL HYDROX/SIMETH 30 ML UNIT-DOSE CUP PO PRN (12:18)
[2021-01-13] MEDS ORDERED: IBUPROFEN 400 MG TABLET (FP) PO PRN (12:18)
[2021-01-13] MEDS ORDERED: BISMUTH SUBSALICYLATE 262 MG/15 ML BTL PO PRN (12:18)
[2021-01-13 14:50] VITALS: BMI 29.0
[2021-01-13] MEDS: NICOTINE 7 MG/24 HOURS TOPICAL PATCH TD SCH ×2 (15:03→15:08)
[2021-01-13] MEDS: hydrOXYzine PAMOATE 25 MG CAPSULE (FP) PO SCH ×3 (15:03→22:43)
[2021-01-13] MEDS: PRENATAL VITAMINS W/ FOLIC ACID TABLET (FP) PO SCH (15:04)
[2021-01-13] MEDS: MELATONIN 5 MG TABLETS PO SCH (22:42)
[2021-01-13] MEDS: THIAMINE HCL 100 MG TABLET (FP) PO SCH (22:44)
[2021-01-14] MEDS: hydrOXYzine PAMOATE 25 MG CAPSULE (FP) PO SCH ×6 (05:39→22:17)
[2021-01-14] MEDS: METHOCARBAMOL 500 MG TABLET PO PRN ×2 (05:41→10:49)
[2021-01-14] MEDS ORDERED: methaDONE HCL 10 MG TABLET (FOR DETOX USE ONLY) ONE (09:37)
[2021-01-14] MEDS: PRENATAL VITAMINS W/ FOLIC ACID TABLET (FP) PO SCH (10:49)
[2021-01-14] MEDS: NICOTINE 7 MG/24 HOURS TOPICAL PATCH TD SCH (10:51)
[2021-01-14] MEDS: PANTOPRAZOLE 20 MG TABLET PO SCH (12:33)
[2021-01-14] MEDS: ASPIRIN 81 MG CHEWABLE TABLETS PO SCH (12:33)
[2021-01-14] MEDS: CLOPIDOGREL BISULFATE 75 MG TABLET (FP) PO SCH (12:33)
[2021-01-14 13:39] LABS: HEMATOCRIT 33.4 % (35.4-49); HEMOGLOBIN 11.4 GM/dL (11.7-16.9); MCH 27.6 pg (25.7-33.7); MCHC 34.2 g/dl (32.0-35.9); MEAN CELL VOLUME 80.7 fl (80-96); MEAN PLT VOLUME 7.2 fl (7.5-11.1); PLATELET COUNT 233 10^3/uL (134-434); RBC 4.13 M/mm3 (4.00-5.60); RDW 15.1 % (11.9-15.9); WHITE BLOOD COUNT 5.1 K/mm3 (4.0-10.0)
[2021-01-14 13:51] LABS: ALBUMIN 3.1 g/dl (3.4-5.0); CALCIUM 8.6 mg/dL (8.5-10.1)
[2021-01-14 13:52] LABS: BLOOD UREA NITROGEN 14.1 mg/dL (7-18)
[2021-01-14 13:56] LABS: BILIRUBIN,TOTAL 0.4 mg/dL (0.2-1); TOT PROT 6.6 g/dl (6.4-8.2)
[2021-01-14] MEDS: PATIENT'S OWN MEDICATION (NON-FORMULARY) (Nifedipine [Nifedipine Er] 60 MG Tab.Er.24) PO SCH (14:41)
[2021-01-14] MEDS: PATIENT'S OWN MEDICATION (NON-FORMULARY) (Losartan Potassium [Losartan Potassium] 100 MG T PO SCH (14:42)
[2021-01-14] MEDS: TAMSULOSIN HCL 0.4 MG CAP PO SCH (14:45)
[2021-01-14] MEDS: diazePAM 5 MG TABLET PO PRN (17:23)
[2021-01-14] MEDS: MAGNESIUM HYDROX 2400MG/30ML ORAL SUSPENSION 30 ML CUP PO PRN (18:19)
[2021-01-14] MEDS ORDERED: TAMSULOSIN HCL 0.4 MG CAP PO SCH (22:00)
[2021-01-14] MEDS ORDERED: CARVEDILOL 3.125 MG TABLET (FP) PO SCH (22:00)
[2021-01-14] MEDS: ATORVASTATIN CA 40 MG TABLET (FP) PO SCH (22:16)
[2021-01-14] MEDS: THIAMINE HCL 100 MG TABLET (FP) PO SCH (22:17)
[2021-01-14] MEDS: [UNRECOGNIZED DRUG - OTHER] PO SCH (22:17)
[2021-01-14] MEDS: MELATONIN 5 MG TABLETS PO SCH (22:17)
[2021-01-15] MEDS: diazePAM 5 MG TABLET PO PRN ×4 (01:00→22:47)
[2021-01-15] MEDS: hydrOXYzine PAMOATE 25 MG CAPSULE (FP) PO SCH ×5 (06:14→22:06)
[2021-01-15] MEDS ORDERED: methaDONE HCL 10 MG TABLET (FOR DETOX USE ONLY) PO ONE (10:00)
[2021-01-15] MEDS: TAMSULOSIN HCL 0.4 MG CAP PO SCH (10:13)
[2021-01-15] MEDS: METHOCARBAMOL 500 MG TABLET PO PRN (10:14)
[2021-01-15] MEDS: ASPIRIN 81 MG CHEWABLE TABLETS PO SCH (10:14)
[2021-01-15] MEDS: PANTOPRAZOLE 20 MG TABLET PO SCH (10:14)
[2021-01-15] MEDS: PATIENT'S OWN MEDICATION (NON-FORMULARY) (Losartan Potassium [Losartan Potassium] 100 MG T PO SCH (10:15)
[2021-01-15] MEDS: CLOPIDOGREL BISULFATE 75 MG TABLET (FP) PO SCH (10:15)
[2021-01-15] MEDS: [UNRECOGNIZED DRUG - OTHER] PO SCH ×2 (10:15→22:07)
[2021-01-15] MEDS: NICOTINE 7 MG/24 HOURS TOPICAL PATCH TD SCH (10:16)
[2021-01-15] MEDS: PATIENT'S OWN MEDICATION (NON-FORMULARY) (Nifedipine [Nifedipine Er] 60 MG Tab.Er.24) PO SCH (10:16)
[2021-01-15] MEDS: PRENATAL VITAMINS W/ FOLIC ACID TABLET (FP) PO SCH (11:05)
[2021-01-15] MEDS: MAGNESIUM HYDROX 2400MG/30ML ORAL SUSPENSION 30 ML CUP PO PRN (17:47)
[2021-01-15] MEDS: THIAMINE HCL 100 MG TABLET (FP) PO SCH (22:05)
[2021-01-15] MEDS: ATORVASTATIN CA 40 MG TABLET (FP) PO SCH (22:06)
[2021-01-15] MEDS: MELATONIN 5 MG TABLETS PO SCH (22:06)
[2021-01-16] MEDS: hydrOXYzine PAMOATE 25 MG CAPSULE (FP) PO SCH ×5 (05:40→23:07)
[2021-01-16] MEDS: TAMSULOSIN HCL 0.4 MG CAP PO SCH (07:33)
[2021-01-16] MEDS ORDERED: methaDONE HCL 10 MG TABLET (FOR DETOX USE ONLY) ONE (09:33)
[2021-01-16] MEDS: ASPIRIN 81 MG CHEWABLE TABLETS PO SCH (10:15)
[2021-01-16] MEDS: CLOPIDOGREL BISULFATE 75 MG TABLET (FP) PO SCH (10:15)
[2021-01-16] MEDS: PANTOPRAZOLE 20 MG TABLET PO SCH (10:15)
[2021-01-16] MEDS: PRENATAL VITAMINS W/ FOLIC ACID TABLET (FP) PO SCH (10:15)
[2021-01-16] MEDS: diazePAM 5 MG TABLET PO PRN ×2 (10:17→22:35)
[2021-01-16] MEDS: PATIENT'S OWN MEDICATION (NON-FORMULARY) (Losartan Potassium [Losartan Potassium] 100 MG T PO SCH (10:20)
[2021-01-16] MEDS: NICOTINE 7 MG/24 HOURS TOPICAL PATCH TD SCH (10:20)
[2021-01-16] MEDS: PATIENT'S OWN MEDICATION (NON-FORMULARY) (Nifedipine [Nifedipine Er] 60 MG Tab.Er.24) PO SCH (10:20)
[2021-01-16] MEDS: [UNRECOGNIZED DRUG - OTHER] PO SCH ×2 (10:20→22:33)
[2021-01-16] MEDS: METOPROLOL TARTRATE 25 MG TABLET (FP) PO SCH ×2 (13:18→22:27)
[2021-01-16] MEDS: LACTULOSE 20 GM/30 ML UDC (FOR ORAL USE ONLY) PO SCH ×2 (14:37→23:07)
[2021-01-16] MEDS: MAGNESIUM HYDROX 2400MG/30ML ORAL SUSPENSION 30 ML CUP PO PRN (15:37)
[2021-01-16] MEDS: ATORVASTATIN CA 40 MG TABLET (FP) PO SCH (22:27)
[2021-01-16] MEDS: MELATONIN 5 MG TABLETS PO SCH (22:29)
[2021-01-16] MEDS: THIAMINE HCL 100 MG TABLET (FP) PO SCH (22:30)
[2021-01-17] MEDS: METHOCARBAMOL 500 MG TABLET PO PRN (05:52)
[2021-01-17] MEDS: hydrOXYzine PAMOATE 25 MG CAPSULE (FP) PO SCH ×5 (05:52→21:52)
[2021-01-17] MEDS: TAMSULOSIN HCL 0.4 MG CAP PO SCH (07:40)
[2021-01-17] MEDS ORDERED: methaDONE HCL 10 MG TABLET (FOR DETOX USE ONLY) PO ONE (10:00)
[2021-01-17] MEDS: PRENATAL VITAMINS W/ FOLIC ACID TABLET (FP) PO SCH (10:07)
[2021-01-17] MEDS: METOPROLOL TARTRATE 25 MG TABLET (FP) PO SCH ×2 (10:07→22:59)
[2021-01-17] MEDS: CLOPIDOGREL BISULFATE 75 MG TABLET (FP) PO SCH (10:08)
[2021-01-17] MEDS: PANTOPRAZOLE 20 MG TABLET PO SCH (10:08)
[2021-01-17] MEDS: PATIENT'S OWN MEDICATION (NON-FORMULARY) (Nifedipine [Nifedipine Er] 60 MG Tab.Er.24) PO SCH (10:10)
[2021-01-17] MEDS: NICOTINE 7 MG/24 HOURS TOPICAL PATCH TD SCH (10:10)
[2021-01-17] MEDS: ASPIRIN 81 MG CHEWABLE TABLETS PO SCH (10:10)
[2021-01-17] MEDS: PATIENT'S OWN MEDICATION (NON-FORMULARY) (Losartan Potassium [Losartan Potassium] 100 MG T PO SCH (10:10)
[2021-01-17] MEDS: LACTULOSE 20 GM/30 ML UDC (FOR ORAL USE ONLY) PO SCH ×2 (10:10→22:24)
[2021-01-17] MEDS: [UNRECOGNIZED DRUG - OTHER] PO SCH ×2 (10:11→22:19)
[2021-01-17] MEDS: ATORVASTATIN CA 40 MG TABLET (FP) PO SCH (21:52)
[2021-01-17] MEDS: THIAMINE HCL 100 MG TABLET (FP) PO SCH (21:54)
[2021-01-17] MEDS: MELATONIN 5 MG TABLETS PO SCH (22:19)
[2021-01-18] MEDS: hydrOXYzine PAMOATE 25 MG CAPSULE (FP) PO SCH ×2 (05:33→09:24)
[2021-01-18] MEDS: TAMSULOSIN HCL 0.4 MG CAP PO SCH (07:33)
[2021-01-18] MEDS: CLOPIDOGREL BISULFATE 75 MG TABLET (FP) PO SCH (09:22)
[2021-01-18] MEDS: PANTOPRAZOLE 20 MG TABLET PO SCH (09:22)
[2021-01-18] MEDS: ASPIRIN 81 MG CHEWABLE TABLETS PO SCH (09:22)
[2021-01-18] MEDS: PATIENT'S OWN MEDICATION (NON-FORMULARY) (Nifedipine [Nifedipine Er] 60 MG Tab.Er.24) PO SCH (09:23)
[2021-01-18] MEDS: PRENATAL VITAMINS W/ FOLIC ACID TABLET (FP) PO SCH (09:23)
[2021-01-18] MEDS: LACTULOSE 20 GM/30 ML UDC (FOR ORAL USE ONLY) PO SCH (09:23)
[2021-01-18] MEDS: NICOTINE 7 MG/24 HOURS TOPICAL PATCH TD SCH (09:23)
[2021-01-18] MEDS: [UNRECOGNIZED DRUG - OTHER] PO SCH (09:24)
[2021-01-18] MEDS: METOPROLOL TARTRATE 25 MG TABLET (FP) PO SCH (09:25)
[2021-01-18] MEDS: PATIENT'S OWN MEDICATION (NON-FORMULARY) (Losartan Potassium [Losartan Potassium] 100 MG T PO SCH (09:25)
[2021-01-18 10:14] VITALS: BP 147/71; PULSE 68; TEMP 99.5
== END 2021-01-18 11:11 | disposition home or self-care (01) | DRG 773 ==
LOC: YASAS 11:52 → Y6N 13:21
PROVIDERS: ADMIT Allergy & Immunology; ATTEND Allergy & Immunology
PROC: HZ2ZZZZ Detoxification Services for Substance Abuse Treatment (ICD-10-PCS; principal; 2021-01-13)
DX: F10.230 Alcohol dependence with withdrawal, uncomplicated (principal); F11.23 Opioid dependence with withdrawal; F13.230 Sedative, hypnotic or anxiolytic dependence with withdrawal, uncomplicated; F12.20 Cannabis dependence, uncomplicated; F17.210 Nicotine dependence, cigarettes, uncomplicated; F41.9 Anxiety disorder, unspecified; E78.1 Pure hyperglyceridemia; I25.10 Atherosclerotic heart disease of native coronary artery without angina pectoris; I10 Essential (primary) hypertension; Z95.1 Presence of aortocoronary bypass graft; Z95.5 Presence of coronary angioplasty implant and graft; K21.9 Gastro-esophageal reflux disease without esophagitis; N40.0 Benign prostatic hyperplasia without lower urinary tract symptoms; Z86.19 Personal history of other infectious and parasitic diseases; Z88.8 Allergy status to other drugs, medicaments and biological substances; Z91.013 Allergy to seafood
CPT/HCPCS: 36415; 80053; 82962; 85027; 86593; 86780; C9803; J0735; U0003; U0005

== ENCOUNTER 2021-02-16 13:15 | Inpatient (IN) | payer OTHER ==
[2021-02-16] MEDS ORDERED: NICOTINE 10 MG CARTRIDGE (INHALER) IH PRN (14:08)
[2021-02-16] MEDS ORDERED: MAGNESIUM CITRATE 300 ML BOTTLE PO PRN (14:08)
[2021-02-16] MEDS ORDERED: methaDONE HCL 10 MG TABLET (FOR DETOX USE ONLY) PO ONE (14:08)
[2021-02-16] MEDS ORDERED: cloNIDine HCL 0.1 MG TABLET PO PRN (14:08)
[2021-02-16] MEDS ORDERED: MAG HYDROX/AL HYDROX/SIMETH 30 ML UNIT-DOSE CUP PO PRN (14:08)
[2021-02-16] MEDS ORDERED: ACETAMINOPHEN 325 MG TABLET (FP) PO PRN ×2 (14:08)
[2021-02-16] MEDS ORDERED: IBUPROFEN 400 MG TABLET (FP) PO PRN (14:08)
[2021-02-16] MEDS ORDERED: MENTHOL/PHENOL 1 EACH UD MM PRN (14:08)
[2021-02-16] MEDS ORDERED: ONDANSETRON *ODT* 4 MG TABLET SL PRN (14:08)
[2021-02-16] MEDS ORDERED: BISMUTH SUBSALICYLATE 262 MG/15 ML BTL PO PRN (14:08)
[2021-02-16] MEDS ORDERED: MAGNESIUM HYDROX 2400MG/30ML ORAL SUSPENSION 30 ML CUP PO PRN (14:08)
[2021-02-16 14:22] VITALS: BMI 28.5
[2021-02-16] MEDS: METHOCARBAMOL 500 MG TABLET PO PRN (15:38)
[2021-02-16] MEDS ORDERED: SENNOSIDES 8.6MG TABLET (FP) PO PRN (16:37)
[2021-02-16] MEDS: hydrOXYzine PAMOATE 25 MG CAPSULE (FP) PO SCH ×2 (18:11→22:03)
[2021-02-16] MEDS: diazePAM 5 MG TABLET PO SCH ×2 (18:11→22:03)
[2021-02-16] MEDS ORDERED: SENNOSIDES 8.6MG TABLET (FP) PO ONE (22:00)
[2021-02-16] MEDS: THIAMINE HCL 100 MG TABLET (FP) PO SCH (22:03)
[2021-02-16] MEDS: SUVOREXANT 10 MG TABLET PO PRN (22:04)
[2021-02-16] MEDS: MELATONIN 5 MG TABLETS PO SCH (22:04)
[2021-02-17] MEDS: diazePAM 5 MG TABLET PO SCH ×4 (06:00→22:58)
[2021-02-17] MEDS: hydrOXYzine PAMOATE 25 MG CAPSULE (FP) PO SCH ×5 (06:00→22:57)
[2021-02-17] MEDS ORDERED: methaDONE HCL 10 MG TABLET (FOR DETOX USE ONLY) ONE (10:04)
[2021-02-17] MEDS: TAMSULOSIN HCL 0.4 MG CAP PO SCH (11:47)
[2021-02-17] MEDS: PRENATAL VITAMINS W/ FOLIC ACID TABLET (FP) PO SCH (11:49)
[2021-02-17] MEDS: PANTOPRAZOLE 20 MG TABLET PO SCH (11:49)
[2021-02-17 12:34] LABS: CREATININE 1.1 mg/dL (0.55-1.3)
[2021-02-17 12:35] LABS: BILIRUBIN,TOTAL 0.2 mg/dL (0.2-1); TOT PROT 6.3 g/dl (6.4-8.2)
[2021-02-17 12:39] LABS: ALBUMIN 3.1 g/dl (3.4-5.0); BLOOD UREA NITROGEN 16.9 mg/dL (7-18)
[2021-02-17 12:43] LABS: CALCIUM 8.2 mg/dL (8.5-10.1)
[2021-02-17 13:18] LABS: HEMATOCRIT 29.9 % (35.4-49); HEMOGLOBIN 10.2 GM/dL (11.7-16.9); MCH 27.4 pg (25.7-33.7); MCHC 34.1 g/dl (32.0-35.9); MEAN CELL VOLUME 80.2 fl (80-96); MEAN PLT VOLUME 7.1 fl (7.5-11.1); PLATELET COUNT 185 10^3/uL (134-434); RBC 3.72 M/mm3 (4.00-5.60); RDW 14.4 % (11.9-15.9); WHITE BLOOD COUNT 5.3 K/mm3 (4.0-10.0)
[2021-02-17] MEDS: LOSARTAN POTASSIUM 50 MG TABLET PO SCH (17:01)
[2021-02-17] MEDS: CLOPIDOGREL BISULFATE 75 MG TABLET (FP) PO SCH (17:01)
[2021-02-17] MEDS: THIAMINE HCL 100 MG TABLET (FP) PO SCH (22:57)
[2021-02-17] MEDS: ATORVASTATIN CA 80 MG TABLET (FP) PO SCH (22:58)
[2021-02-18] MEDS: CARVEDILOL 3.125 MG TABLET (FP) PO SCH ×3 (01:45→22:14)
[2021-02-18] MEDS: RANOLAZINE E.R. 500 MG TABLET (FP) PO SCH ×3 (01:46→22:13)
[2021-02-18] MEDS: MELATONIN 5 MG TABLETS PO SCH ×2 (01:46→22:14)
[2021-02-18] MEDS: diazePAM 5 MG TABLET PO SCH ×3 (05:41→22:14)
[2021-02-18] MEDS: hydrOXYzine PAMOATE 25 MG CAPSULE (FP) PO SCH ×5 (05:41→22:15)
[2021-02-18] MEDS ORDERED: methaDONE HCL 10 MG TABLET (FOR DETOX USE ONLY) PO ONE (10:00)
[2021-02-18] MEDS: TAMSULOSIN HCL 0.4 MG CAP PO SCH (10:18)
[2021-02-18] MEDS: CLOPIDOGREL BISULFATE 75 MG TABLET (FP) PO SCH (10:19)
[2021-02-18] MEDS: diazePAM 5 MG TABLET PO PRN (10:19)
[2021-02-18] MEDS: METHOCARBAMOL 500 MG TABLET PO PRN (10:20)
[2021-02-18] MEDS: PANTOPRAZOLE 20 MG TABLET PO SCH (10:22)
[2021-02-18] MEDS: PRENATAL VITAMINS W/ FOLIC ACID TABLET (FP) PO SCH (10:23)
[2021-02-18] MEDS: LOSARTAN POTASSIUM 50 MG TABLET PO SCH (11:15)
[2021-02-18] MEDS: NIFEdipine E.R. 30 MG TABLET PO SCH (11:15)
[2021-02-18] MEDS: ATORVASTATIN CA 80 MG TABLET (FP) PO SCH (22:14)
[2021-02-18] MEDS: THIAMINE HCL 100 MG TABLET (FP) PO SCH (22:40)
[2021-02-19] MEDS: SUVOREXANT 10 MG TABLET PO PRN (01:12)
[2021-02-19] MEDS: diazePAM 5 MG TABLET PO SCH ×2 (06:53→18:23)
[2021-02-19] MEDS: hydrOXYzine PAMOATE 25 MG CAPSULE (FP) PO SCH ×5 (06:53→22:44)
[2021-02-19] MEDS ORDERED: methaDONE HCL 10 MG TABLET (FOR DETOX USE ONLY) ONE (09:30)
[2021-02-19] MEDS: LOSARTAN POTASSIUM 50 MG TABLET PO SCH (10:00)
[2021-02-19] MEDS: NIFEdipine E.R. 30 MG TABLET PO SCH (10:00)
[2021-02-19] MEDS: diazePAM 5 MG TABLET PO PRN (10:46)
[2021-02-19] MEDS: PANTOPRAZOLE 20 MG TABLET PO SCH (10:49)
[2021-02-19] MEDS: CLOPIDOGREL BISULFATE 75 MG TABLET (FP) PO SCH (10:49)
[2021-02-19] MEDS: TAMSULOSIN HCL 0.4 MG CAP PO SCH (10:50)
[2021-02-19] MEDS: RANOLAZINE E.R. 500 MG TABLET (FP) PO SCH ×2 (10:50→22:42)
[2021-02-19] MEDS: CARVEDILOL 3.125 MG TABLET (FP) PO SCH ×2 (10:51→22:41)
[2021-02-19] MEDS: PRENATAL VITAMINS W/ FOLIC ACID TABLET (FP) PO SCH (10:51)
[2021-02-19] MEDS: ATORVASTATIN CA 80 MG TABLET (FP) PO SCH (22:41)
[2021-02-19] MEDS: THIAMINE HCL 100 MG TABLET (FP) PO SCH (22:42)
[2021-02-19] MEDS: MELATONIN 5 MG TABLETS PO SCH (22:42)
[2021-02-20] MEDS ORDERED: diazePAM 5 MG TABLET PO ONE (06:00)
[2021-02-20] MEDS: hydrOXYzine PAMOATE 25 MG CAPSULE (FP) PO SCH ×5 (06:07→22:00)
[2021-02-20] MEDS: TAMSULOSIN HCL 0.4 MG CAP PO SCH (07:39)
[2021-02-20] MEDS ORDERED: methaDONE HCL 10 MG TABLET (FOR DETOX USE ONLY) PO ONE (10:00)
[2021-02-20] MEDS: NIFEdipine E.R. 30 MG TABLET PO SCH (10:07)
[2021-02-20] MEDS: PRENATAL VITAMINS W/ FOLIC ACID TABLET (FP) PO SCH (10:07)
[2021-02-20] MEDS: LOSARTAN POTASSIUM 50 MG TABLET PO SCH (10:08)
[2021-02-20] MEDS: CLOPIDOGREL BISULFATE 75 MG TABLET (FP) PO SCH (10:08)
[2021-02-20] MEDS: METHOCARBAMOL 500 MG TABLET PO PRN (10:08)
[2021-02-20] MEDS: RANOLAZINE E.R. 500 MG TABLET (FP) PO SCH ×2 (10:09→22:01)
[2021-02-20] MEDS: CARVEDILOL 3.125 MG TABLET (FP) PO SCH ×2 (10:09→22:00)
[2021-02-20] MEDS: PANTOPRAZOLE 20 MG TABLET PO SCH (13:15)
[2021-02-20] MEDS: THIAMINE HCL 100 MG TABLET (FP) PO SCH (22:00)
[2021-02-20] MEDS: MELATONIN 5 MG TABLETS PO SCH (22:00)
[2021-02-20] MEDS: ATORVASTATIN CA 80 MG TABLET (FP) PO SCH (22:01)
[2021-02-21] MEDS: hydrOXYzine PAMOATE 25 MG CAPSULE (FP) PO SCH ×2 (05:09→09:00)
[2021-02-21] MEDS: TAMSULOSIN HCL 0.4 MG CAP PO SCH (08:13)
[2021-02-21] MEDS: PANTOPRAZOLE 20 MG TABLET PO SCH (08:59)
[2021-02-21] MEDS: PRENATAL VITAMINS W/ FOLIC ACID TABLET (FP) PO SCH (08:59)
[2021-02-21] MEDS: CLOPIDOGREL BISULFATE 75 MG TABLET (FP) PO SCH (09:00)
[2021-02-21] MEDS: NIFEdipine E.R. 30 MG TABLET PO SCH (09:00)
[2021-02-21] MEDS: LOSARTAN POTASSIUM 50 MG TABLET PO SCH (09:01)
[2021-02-21] MEDS: CARVEDILOL 3.125 MG TABLET (FP) PO SCH (09:01)
[2021-02-21] MEDS: RANOLAZINE E.R. 500 MG TABLET (FP) PO SCH (09:05)
[2021-02-21 09:27] VITALS: BP 143/87; PULSE 70; TEMP 97.3
== END 2021-02-21 09:40 | disposition home or self-care (01) | DRG 773 ==
LOC: YASAS 13:15 → Y6N 14:46
PROVIDERS: ADMIT Allergy & Immunology; ATTEND Allergy & Immunology
PROC: HZ2ZZZZ Detoxification Services for Substance Abuse Treatment (ICD-10-PCS; principal; 2021-02-16)
DX: F11.23 Opioid dependence with withdrawal (principal); F14.20 Cocaine dependence, uncomplicated; F12.20 Cannabis dependence, uncomplicated; F17.210 Nicotine dependence, cigarettes, uncomplicated; F19.24 Other psychoactive substance dependence with psychoactive substance-induced mood disorder; F19.282 Other psychoactive substance dependence with psychoactive substance-induced sleep disorder; F19.280 Other psychoactive substance dependence with psychoactive substance-induced anxiety disorder; F41.9 Anxiety disorder, unspecified; F32.A Depression, unspecified; I10 Essential (primary) hypertension; I25.10 Atherosclerotic heart disease of native coronary artery without angina pectoris; E78.5 Hyperlipidemia, unspecified; K21.9 Gastro-esophageal reflux disease without esophagitis; N40.0 Benign prostatic hyperplasia without lower urinary tract symptoms; G47.00 Insomnia, unspecified; Z88.8 Allergy status to other drugs, medicaments and biological substances; Z91.013 Allergy to seafood; Z95.1 Presence of aortocoronary bypass graft; Z86.19 Personal history of other infectious and parasitic diseases; Z56.0 Unemployment, unspecified
CPT/HCPCS: 36415; 80053; 85027; 86593; 86780; C9803; J0735; U0003; U0005

== ENCOUNTER 2021-03-21 12:37 | Inpatient (IN) | payer OTHER ==
[2021-03-21] MEDS ORDERED: BISMUTH SUBSALICYLATE 524 MG/30 ML PO PRN (13:13)
[2021-03-21] MEDS ORDERED: NICOTINE 10 MG CARTRIDGE (INHALER) IH PRN (13:13)
[2021-03-21] MEDS ORDERED: MENTHOL/PHENOL 1 EACH UD MM PRN (13:13)
[2021-03-21] MEDS ORDERED: MAGNESIUM HYDROX 2400MG/30ML ORAL SUSPENSION 30 ML CUP PO PRN (13:13)
[2021-03-21] MEDS ORDERED: METHOCARBAMOL 500 MG TABLET PO PRN (13:13)
[2021-03-21] MEDS ORDERED: IBUPROFEN 400 MG TABLET (FP) PO PRN (13:13)
[2021-03-21] MEDS ORDERED: cloNIDine HCL 0.1 MG TABLET PO PRN (13:13)
[2021-03-21] MEDS ORDERED: ACETAMINOPHEN 325 MG TABLET (FP) PO PRN ×2 (13:13)
[2021-03-21] MEDS ORDERED: ONDANSETRON *ODT* 4 MG TABLET SL PRN (13:13)
[2021-03-21] MEDS ORDERED: MAG HYDROX/AL HYDROX/SIMETH 30 ML UNIT-DOSE CUP PO PRN (13:13)
[2021-03-21] MEDS ORDERED: MAGNESIUM CITRATE 300 ML BOTTLE PO PRN (13:13)
[2021-03-21] MEDS ORDERED: methaDONE HCL 10 MG TABLET (FOR DETOX USE ONLY) PO ONE (14:00)
[2021-03-21 15:26] VITALS: BMI 28.6
[2021-03-21] MEDS: NICOTINE 14 MG/24 HOURS TOPICAL PATCH TD SCH (16:52)
[2021-03-21] MEDS: CLOPIDOGREL BISULFATE 75 MG TABLET (FP) PO SCH (16:53)
[2021-03-21] MEDS: hydrOXYzine PAMOATE 25 MG CAPSULE (FP) PO SCH ×3 (16:53→22:09)
[2021-03-21] MEDS: PRENATAL VITAMINS W/ FOLIC ACID TABLET (FP) PO SCH (16:53)
[2021-03-21 18:03] LABS: ALBUMIN 3.9 g/dl (3.4-5.0); BLOOD UREA NITROGEN 30.3 mg/dL (7-18); CALCIUM 8.8 mg/dL (8.5-10.1)
[2021-03-21 18:06] LABS: CREATININE 1.6 mg/dL (0.55-1.3)
[2021-03-21 18:08] LABS: BILIRUBIN,TOTAL 0.9 mg/dL (0.2-1); HEMATOCRIT 34.5 % (35.4-49); HEMOGLOBIN 11.4 GM/dL (11.7-16.9); MCH 26.5 pg (25.7-33.7); MEAN CELL VOLUME 80.2 fl (80-96); MEAN PLT VOLUME 6.9 fl (7.5-11.1); PLATELET COUNT 225 10^3/uL (134-434); RBC 4.31 M/mm3 (4.00-5.60); RDW 15.2 % (11.9-15.9); TOT PROT 7.5 g/dl (6.4-8.2); WHITE BLOOD COUNT 3.7 K/mm3 (4.0-10.0)
[2021-03-21] MEDS ORDERED: LACTULOSE 20 GM/30 ML UDC (FOR ORAL USE ONLY) PO SCH (22:00)
[2021-03-21] MEDS ORDERED: RANOLAZINE E.R. 500 MG TABLET (FP) PO ONE (22:00)
[2021-03-21] MEDS ORDERED: MELATONIN 5 MG TABLETS PO SCH (22:00)
[2021-03-21] MEDS: ATORVASTATIN CA 80 MG TABLET (FP) PO SCH (22:09)
[2021-03-21] MEDS: SUVOREXANT 5 MG TABLET PO PRN (22:09)
[2021-03-21] MEDS: busPIRone HCL 10 MG TABLET (FP) PO SCH (22:09)
[2021-03-21] MEDS: THIAMINE HCL 100 MG TABLET (FP) PO SCH (22:09)
[2021-03-21] MEDS: CARVEDILOL 3.125 MG TABLET (FP) PO SCH (22:09)
[2021-03-21] MEDS: METOPROLOL TARTRATE 50 MG TABLET (FP) PO SCH (22:13)
[2021-03-22] MEDS: hydrOXYzine PAMOATE 25 MG CAPSULE (FP) PO SCH ×5 (06:34→23:13)
[2021-03-22] MEDS: busPIRone HCL 10 MG TABLET (FP) PO SCH ×3 (06:34→22:16)
[2021-03-22] MEDS ORDERED: methaDONE HCL 10 MG TABLET (FOR DETOX USE ONLY) ONE (09:10)
[2021-03-22] MEDS ORDERED: LACTULOSE 20 GM/30 ML UDC (FOR ORAL USE ONLY) PO PRN (09:39)
[2021-03-22] MEDS: PRENATAL VITAMINS W/ FOLIC ACID TABLET (FP) PO SCH (10:19)
[2021-03-22] MEDS: CLOPIDOGREL BISULFATE 75 MG TABLET (FP) PO SCH (10:19)
[2021-03-22] MEDS: LOSARTAN POTASSIUM 50 MG TABLET PO SCH (10:19)
[2021-03-22] MEDS: NIFEdipine E.R. 30 MG TABLET PO SCH (10:19)
[2021-03-22] MEDS: CARVEDILOL 3.125 MG TABLET (FP) PO SCH ×2 (10:19→22:16)
[2021-03-22] MEDS: METOPROLOL TARTRATE 50 MG TABLET (FP) PO SCH ×2 (10:21→23:13)
[2021-03-22] MEDS: NICOTINE 14 MG/24 HOURS TOPICAL PATCH TD SCH (10:21)
[2021-03-22] MEDS: RANOLAZINE E.R. 500 MG TABLET (FP) PO SCH ×2 (10:40→22:16)
[2021-03-22] MEDS: diazePAM 5 MG TABLET PO PRN ×3 (10:41→22:17)
[2021-03-22] MEDS: LACTULOSE 20 GM/30 ML UDC (FOR ORAL USE ONLY) PO PRN ×2 (11:14→22:20)
[2021-03-22] MEDS: ATORVASTATIN CA 80 MG TABLET (FP) PO SCH (22:16)
[2021-03-22] MEDS: THIAMINE HCL 100 MG TABLET (FP) PO SCH (22:16)
[2021-03-23] MEDS: SUVOREXANT 5 MG TABLET PO PRN ×2 (00:01→22:14)
[2021-03-23] MEDS: hydrOXYzine PAMOATE 25 MG CAPSULE (FP) PO SCH ×5 (06:11→23:02)
[2021-03-23] MEDS: busPIRone HCL 10 MG TABLET (FP) PO SCH ×3 (06:11→22:15)
[2021-03-23] MEDS ORDERED: methaDONE HCL 10 MG TABLET (FOR DETOX USE ONLY) PO ONE (10:00)
[2021-03-23] MEDS: NIFEdipine E.R. 30 MG TABLET PO SCH (10:44)
[2021-03-23] MEDS: TAMSULOSIN HCL 0.4 MG CAP PO SCH (10:44)
[2021-03-23] MEDS: LOSARTAN POTASSIUM 50 MG TABLET PO SCH (10:44)
[2021-03-23] MEDS: diazePAM 5 MG TABLET PO PRN ×3 (10:45→22:16)
[2021-03-23] MEDS: RANOLAZINE E.R. 500 MG TABLET (FP) PO SCH ×2 (10:45→22:15)
[2021-03-23] MEDS: CLOPIDOGREL BISULFATE 75 MG TABLET (FP) PO SCH (10:45)
[2021-03-23] MEDS: PRENATAL VITAMINS W/ FOLIC ACID TABLET (FP) PO SCH (10:48)
[2021-03-23] MEDS: NICOTINE 14 MG/24 HOURS TOPICAL PATCH TD SCH (10:48)
[2021-03-23] MEDS: METOPROLOL TARTRATE 50 MG TABLET (FP) PO SCH ×2 (10:48→22:11)
[2021-03-23] MEDS: CARVEDILOL 3.125 MG TABLET (FP) PO SCH ×2 (10:49→22:15)
[2021-03-23] MEDS: ATORVASTATIN CA 80 MG TABLET (FP) PO SCH (22:11)
[2021-03-23] MEDS: LACTULOSE 20 GM/30 ML UDC (FOR ORAL USE ONLY) PO PRN (22:15)
[2021-03-23] MEDS: THIAMINE HCL 100 MG TABLET (FP) PO SCH (22:15)
[2021-03-24] MEDS: hydrOXYzine PAMOATE 25 MG CAPSULE (FP) PO SCH ×5 (06:21→22:39)
[2021-03-24] MEDS: busPIRone HCL 10 MG TABLET (FP) PO SCH ×3 (06:21→22:06)
[2021-03-24] MEDS ORDERED: methaDONE HCL 10 MG TABLET (FOR DETOX USE ONLY) ONE (09:08)
[2021-03-24] MEDS: RANOLAZINE E.R. 500 MG TABLET (FP) PO SCH ×2 (09:46→22:07)
[2021-03-24] MEDS: CARVEDILOL 3.125 MG TABLET (FP) PO SCH ×2 (09:46→22:06)
[2021-03-24] MEDS: TAMSULOSIN HCL 0.4 MG CAP PO SCH (09:47)
[2021-03-24] MEDS: CLOPIDOGREL BISULFATE 75 MG TABLET (FP) PO SCH (09:47)
[2021-03-24] MEDS: NIFEdipine E.R. 30 MG TABLET PO SCH (09:48)
[2021-03-24] MEDS: NICOTINE 14 MG/24 HOURS TOPICAL PATCH TD SCH (09:48)
[2021-03-24] MEDS: METOPROLOL TARTRATE 50 MG TABLET (FP) PO SCH (09:48)
[2021-03-24] MEDS: PRENATAL VITAMINS W/ FOLIC ACID TABLET (FP) PO SCH (09:49)
[2021-03-24] MEDS: diazePAM 5 MG TABLET PO PRN ×2 (09:50→22:09)
[2021-03-24] MEDS ORDERED: CARVEDILOL 3.125 MG TABLET (FP) PO SCH (10:00)
[2021-03-24] MEDS: LOSARTAN POTASSIUM 50 MG TABLET PO SCH (10:38)
[2021-03-24] MEDS: ATORVASTATIN CA 80 MG TABLET (FP) PO SCH (22:07)
[2021-03-24] MEDS: SUVOREXANT 5 MG TABLET PO PRN (22:09)
[2021-03-24] MEDS: THIAMINE HCL 100 MG TABLET (FP) PO SCH (22:39)
[2021-03-25] MEDS: busPIRone HCL 10 MG TABLET (FP) PO SCH ×3 (06:49→22:15)
[2021-03-25] MEDS: hydrOXYzine PAMOATE 25 MG CAPSULE (FP) PO SCH ×5 (06:49→22:15)
[2021-03-25] MEDS: diazePAM 5 MG TABLET PO PRN (09:15)
[2021-03-25] MEDS ORDERED: methaDONE HCL 10 MG TABLET (FOR DETOX USE ONLY) PO ONE (10:00)
[2021-03-25] MEDS: TAMSULOSIN HCL 0.4 MG CAP PO SCH (10:47)
[2021-03-25] MEDS: LOSARTAN POTASSIUM 50 MG TABLET PO SCH (10:49)
[2021-03-25] MEDS: CARVEDILOL 3.125 MG TABLET (FP) PO SCH ×2 (10:49→22:15)
[2021-03-25] MEDS: CLOPIDOGREL BISULFATE 75 MG TABLET (FP) PO SCH (10:50)
[2021-03-25] MEDS: NICOTINE 14 MG/24 HOURS TOPICAL PATCH TD SCH (10:50)
[2021-03-25] MEDS: RANOLAZINE E.R. 500 MG TABLET (FP) PO SCH ×2 (10:51→22:15)
[2021-03-25] MEDS: NIFEdipine E.R. 30 MG TABLET PO SCH (10:51)
[2021-03-25] MEDS: PRENATAL VITAMINS W/ FOLIC ACID TABLET (FP) PO SCH (10:51)
[2021-03-25] MEDS ORDERED: cloNIDine HCL 0.1 MG TABLET PO ONE (19:27)
[2021-03-25] MEDS: ATORVASTATIN CA 80 MG TABLET (FP) PO SCH (22:14)
[2021-03-25] MEDS: SUVOREXANT 5 MG TABLET PO PRN (22:14)
[2021-03-25] MEDS: THIAMINE HCL 100 MG TABLET (FP) PO SCH (22:15)
[2021-03-26] MEDS: hydrOXYzine PAMOATE 25 MG CAPSULE (FP) PO SCH ×2 (06:28→09:07)
[2021-03-26] MEDS: busPIRone HCL 10 MG TABLET (FP) PO SCH (06:28)
[2021-03-26 07:21] VITALS: BP 116/56; PULSE 59; TEMP 99.1
[2021-03-26] MEDS: RANOLAZINE E.R. 500 MG TABLET (FP) PO SCH (09:07)
[2021-03-26] MEDS: LOSARTAN POTASSIUM 50 MG TABLET PO SCH (09:07)
[2021-03-26] MEDS: NIFEdipine E.R. 30 MG TABLET PO SCH (09:07)
[2021-03-26] MEDS: TAMSULOSIN HCL 0.4 MG CAP PO SCH (09:07)
[2021-03-26] MEDS: CLOPIDOGREL BISULFATE 75 MG TABLET (FP) PO SCH (09:07)
[2021-03-26] MEDS: CARVEDILOL 3.125 MG TABLET (FP) PO SCH (09:07)
[2021-03-26] MEDS: PRENATAL VITAMINS W/ FOLIC ACID TABLET (FP) PO SCH (09:09)
[2021-03-26] MEDS: NICOTINE 14 MG/24 HOURS TOPICAL PATCH TD SCH (09:09)
== END 2021-03-26 09:09 | disposition home or self-care (01) | DRG 773 ==
LOC: YASAS 12:37 → Y3N 15:02
PROVIDERS: ADMIT Allergy & Immunology; ATTEND Allergy & Immunology
PROC: HZ2ZZZZ Detoxification Services for Substance Abuse Treatment (ICD-10-PCS; principal; 2021-03-21)
DX: F11.23 Opioid dependence with withdrawal (principal); F10.230 Alcohol dependence with withdrawal, uncomplicated; F12.20 Cannabis dependence, uncomplicated; F41.9 Anxiety disorder, unspecified; F32.A Depression, unspecified; E78.5 Hyperlipidemia, unspecified; I25.10 Atherosclerotic heart disease of native coronary artery without angina pectoris; I10 Essential (primary) hypertension; Z95.1 Presence of aortocoronary bypass graft; A53.0 Latent syphilis, unspecified as early or late; Z86.19 Personal history of other infectious and parasitic diseases; Z87.891 Personal history of nicotine dependence; Z88.8 Allergy status to other drugs, medicaments and biological substances; Z91.013 Allergy to seafood
CPT/HCPCS: 36415; 80053; 85027; 86593; 86780; C9803; J0735; U0003; U0005

== ENCOUNTER 2021-04-05 20:04 | Inpatient (IN) | payer OTHER ==
[2021-04-05 22:49] VITALS: BMI 28.6
[2021-04-05] MEDS ORDERED: BISMUTH SUBSALICYLATE 524 MG/30 ML PO PRN (23:03)
[2021-04-05] MEDS ORDERED: ACETAMINOPHEN 325 MG TABLET (FP) PO PRN ×2 (23:03)
[2021-04-05] MEDS ORDERED: NALOXONE (NARCAN) HCL 4 MG/0.1 ML SPRAY NS PRN (23:03)
[2021-04-05] MEDS ORDERED: NALOXONE HCL 0.4 MG/ML VIAL IM PRN (23:03)
[2021-04-05] MEDS ORDERED: guaiFENesin 200 MG/10 ML 10 ML UNIT-DOSE CUPS PO PRN (23:03)
[2021-04-05] MEDS ORDERED: DICYCLOMINE HCL 10 MG CAPSULE PO PRN (23:03)
[2021-04-05] MEDS ORDERED: P-EPHED 60MG/TRIPROLIDI 2.5MG TABLET PO PRN (23:03)
[2021-04-05] MEDS ORDERED: IBUPROFEN 400 MG TABLET (FP) PO PRN (23:03)
[2021-04-05] MEDS ORDERED: MAGNESIUM CITRATE 300 ML BOTTLE PO PRN (23:03)
[2021-04-05] MEDS ORDERED: MAG HYDROX/AL HYDROX/SIMETH 30 ML UNIT-DOSE CUP PO PRN (23:03)
[2021-04-05] MEDS ORDERED: MENTHOL/PHENOL 1 EACH UD MM PRN (23:03)
[2021-04-05] MEDS ORDERED: MAGNESIUM HYDROX 2400MG/30ML ORAL SUSPENSION 30 ML CUP PO PRN (23:03)
[2021-04-05] MEDS ORDERED: methaDONE HCL 10 MG TABLET (FOR DETOX USE ONLY) PO ONE (23:03)
[2021-04-05] MEDS ORDERED: methaDONE HCL 10 MG TABLET (FOR DETOX USE ONLY) ONE (23:17)
[2021-04-06] MEDS ORDERED: methaDONE HCL 10 MG TABLET (FOR DETOX USE ONLY) ONE (09:44)
[2021-04-06] MEDS: PRENATAL VITAMINS W/ FOLIC ACID TABLET (FP) PO SCH (11:07)
[2021-04-06] MEDS: METHOCARBAMOL 500 MG TABLET PO PRN ×3 (11:08→22:55)
[2021-04-06] MEDS: ASPIRIN 81 MG CHEWABLE TABLETS PO SCH (11:12)
[2021-04-06] MEDS: CLOPIDOGREL BISULFATE 75 MG TABLET (FP) PO SCH (11:12)
[2021-04-06] MEDS: NIFEdipine E.R. 30 MG TABLET PO SCH (11:27)
[2021-04-06] MEDS: RANOLAZINE E.R. 500 MG TABLET (FP) PO SCH ×2 (11:28→23:17)
[2021-04-06] MEDS: LOSARTAN POTASSIUM 50 MG TABLET PO SCH (11:31)
[2021-04-06] MEDS: diazePAM 5 MG TABLET PO PRN ×3 (12:35→22:56)
[2021-04-06 13:40] LABS: HEMATOCRIT 33.2 % (35.4-49); MCH 26.5 pg (25.7-33.7); MCHC 33.1 g/dl (32.0-35.9); MEAN CELL VOLUME 79.9 fl (80-96); MEAN PLT VOLUME 7.1 fl (7.5-11.1); PLATELET COUNT 239 10^3/uL (134-434); RBC 4.16 M/mm3 (4.00-5.60); RDW 14.8 % (11.9-15.9); WHITE BLOOD COUNT 6.2 K/mm3 (4.0-10.0)
[2021-04-06] MEDS: cloNIDine HCL 0.1 MG TABLET PO PRN (13:45)
[2021-04-06 15:55] LABS: ALBUMIN 3.6 g/dl (3.4-5.0); BILIRUBIN,TOTAL 0.8 mg/dL (0.2-1); BLOOD UREA NITROGEN 15.3 mg/dL (7-18); CALCIUM 8.7 mg/dL (8.5-10.1); CREATININE 1.1 mg/dL (0.55-1.3); TOT PROT 6.8 g/dl (6.4-8.2)
[2021-04-06] MEDS ORDERED: MELATONIN 5 MG TABLETS PO SCH (22:00)
[2021-04-06] MEDS: LACTULOSE 20 GM/30 ML UDC (FOR ORAL USE ONLY) PO SCH (22:55)
[2021-04-06] MEDS: THIAMINE HCL 100 MG TABLET (FP) PO SCH (22:55)
[2021-04-06] MEDS: SUVOREXANT 10 MG TABLET PO PRN (22:55)
[2021-04-06] MEDS: TAMSULOSIN HCL 0.4 MG CAP PO SCH (22:55)
[2021-04-07] MEDS: cloNIDine HCL 0.1 MG TABLET PO PRN ×2 (03:29→18:11)
[2021-04-07] MEDS ORDERED: methaDONE HCL 10 MG TABLET (FOR DETOX USE ONLY) PO ONE (10:00)
[2021-04-07] MEDS: RANOLAZINE E.R. 500 MG TABLET (FP) PO SCH ×2 (10:51→22:04)
[2021-04-07] MEDS: PRENATAL VITAMINS W/ FOLIC ACID TABLET (FP) PO SCH (10:51)
[2021-04-07] MEDS: ASPIRIN 81 MG CHEWABLE TABLETS PO SCH (10:51)
[2021-04-07] MEDS: LOSARTAN POTASSIUM 50 MG TABLET PO SCH (10:51)
[2021-04-07] MEDS: NIFEdipine E.R. 30 MG TABLET PO SCH (10:51)
[2021-04-07] MEDS: CLOPIDOGREL BISULFATE 75 MG TABLET (FP) PO SCH (10:52)
[2021-04-07] MEDS: METHOCARBAMOL 500 MG TABLET PO PRN ×2 (10:52→18:11)
[2021-04-07] MEDS: diazePAM 5 MG TABLET PO PRN ×3 (10:58→22:06)
[2021-04-07] MEDS: LACTULOSE 20 GM/30 ML UDC (FOR ORAL USE ONLY) PO SCH ×2 (11:16→22:08)
[2021-04-07] MEDS: CARVEDILOL 3.125 MG TABLET (FP) PO SCH ×2 (12:44→22:05)
[2021-04-07] MEDS: THIAMINE HCL 100 MG TABLET (FP) PO SCH (22:05)
[2021-04-07] MEDS: TAMSULOSIN HCL 0.4 MG CAP PO SCH (22:05)
[2021-04-07] MEDS: SUVOREXANT 10 MG TABLET PO PRN (22:13)
[2021-04-08] MEDS: diazePAM 5 MG TABLET PO PRN ×4 (04:27→22:11)
[2021-04-08] MEDS ORDERED: methaDONE HCL 10 MG TABLET (FOR DETOX USE ONLY) ONE (09:51)
[2021-04-08] MEDS: PRENATAL VITAMINS W/ FOLIC ACID TABLET (FP) PO SCH (10:48)
[2021-04-08] MEDS: LACTULOSE 20 GM/30 ML UDC (FOR ORAL USE ONLY) PO SCH ×2 (10:48→22:11)
[2021-04-08] MEDS: CLOPIDOGREL BISULFATE 75 MG TABLET (FP) PO SCH (10:48)
[2021-04-08] MEDS: ASPIRIN 81 MG CHEWABLE TABLETS PO SCH (10:48)
[2021-04-08] MEDS: METHOCARBAMOL 500 MG TABLET PO PRN (10:48)
[2021-04-08] MEDS: LOSARTAN POTASSIUM 50 MG TABLET PO SCH (10:49)
[2021-04-08] MEDS: RANOLAZINE E.R. 500 MG TABLET (FP) PO SCH ×2 (10:49→22:11)
[2021-04-08] MEDS: NIFEdipine E.R. 30 MG TABLET PO SCH (10:49)
[2021-04-08] MEDS: CARVEDILOL 3.125 MG TABLET (FP) PO SCH ×2 (10:49→22:11)
[2021-04-08] MEDS: THIAMINE HCL 100 MG TABLET (FP) PO SCH (22:11)
[2021-04-08] MEDS: SUVOREXANT 10 MG TABLET PO PRN (22:11)
[2021-04-08] MEDS: TAMSULOSIN HCL 0.4 MG CAP PO SCH (22:11)
[2021-04-09] MEDS: diazePAM 5 MG TABLET PO PRN ×4 (04:04→22:12)
[2021-04-09] MEDS: FERROUS SO4 325 MG TABLET (FP) PO SCH ×2 (07:06→18:33)
[2021-04-09] MEDS ORDERED: methaDONE HCL 10 MG TABLET (FOR DETOX USE ONLY) PO ONE (10:00)
[2021-04-09] MEDS: ASPIRIN 81 MG CHEWABLE TABLETS PO SCH (10:43)
[2021-04-09] MEDS: PRENATAL VITAMINS W/ FOLIC ACID TABLET (FP) PO SCH (10:43)
[2021-04-09] MEDS: CLOPIDOGREL BISULFATE 75 MG TABLET (FP) PO SCH (10:43)
[2021-04-09] MEDS: METHOCARBAMOL 500 MG TABLET PO PRN (10:43)
[2021-04-09] MEDS: LOSARTAN POTASSIUM 50 MG TABLET PO SCH (10:44)
[2021-04-09] MEDS: LACTULOSE 20 GM/30 ML UDC (FOR ORAL USE ONLY) PO SCH ×2 (10:44→23:49)
[2021-04-09] MEDS: NIFEdipine E.R. 30 MG TABLET PO SCH (10:44)
[2021-04-09] MEDS: CARVEDILOL 3.125 MG TABLET (FP) PO SCH ×2 (10:45→22:09)
[2021-04-09] MEDS: RANOLAZINE E.R. 500 MG TABLET (FP) PO SCH ×2 (10:45→22:10)
[2021-04-09] MEDS: SUVOREXANT 10 MG TABLET PO PRN (21:50)
[2021-04-09] MEDS: TAMSULOSIN HCL 0.4 MG CAP PO SCH (22:09)
[2021-04-09] MEDS: THIAMINE HCL 100 MG TABLET (FP) PO SCH (22:13)
[2021-04-10] MEDS: FERROUS SO4 325 MG TABLET (FP) PO SCH (07:05)
[2021-04-10] MEDS: CLOPIDOGREL BISULFATE 75 MG TABLET (FP) PO SCH (09:02)
[2021-04-10] MEDS: LACTULOSE 20 GM/30 ML UDC (FOR ORAL USE ONLY) PO SCH (09:02)
[2021-04-10] MEDS: ASPIRIN 81 MG CHEWABLE TABLETS PO SCH (09:02)
[2021-04-10] MEDS: RANOLAZINE E.R. 500 MG TABLET (FP) PO SCH (09:03)
[2021-04-10] MEDS: CARVEDILOL 3.125 MG TABLET (FP) PO SCH (09:03)
[2021-04-10] MEDS: PRENATAL VITAMINS W/ FOLIC ACID TABLET (FP) PO SCH (09:03)
[2021-04-10] MEDS: LOSARTAN POTASSIUM 50 MG TABLET PO SCH (09:03)
[2021-04-10] MEDS: NIFEdipine E.R. 30 MG TABLET PO SCH (09:04)
[2021-04-10 09:25] VITALS: BP 141/94; PULSE 104; TEMP 98
[2021-04-12 12:18] LABS: SARS-CoV-2 NAA Not Detected
== END 2021-04-10 09:11 | disposition home or self-care (01) | DRG 773 ==
LOC: YASAS 20:04 → Y6N 04-06 03:23
PROVIDERS: ADMIT Allergy & Immunology; ATTEND Allergy & Immunology
PROC: HZ2ZZZZ Detoxification Services for Substance Abuse Treatment (ICD-10-PCS; principal; 2021-04-06)
DX: F11.23 Opioid dependence with withdrawal (principal); F14.20 Cocaine dependence, uncomplicated; F13.20 Sedative, hypnotic or anxiolytic dependence, uncomplicated; F19.280 Other psychoactive substance dependence with psychoactive substance-induced anxiety disorder; F19.282 Other psychoactive substance dependence with psychoactive substance-induced sleep disorder; F19.24 Other psychoactive substance dependence with psychoactive substance-induced mood disorder; A53.0 Latent syphilis, unspecified as early or late; D64.9 Anemia, unspecified; I25.10 Atherosclerotic heart disease of native coronary artery without angina pectoris; I10 Essential (primary) hypertension; Z95.1 Presence of aortocoronary bypass graft; Z95.5 Presence of coronary angioplasty implant and graft; N40.0 Benign prostatic hyperplasia without lower urinary tract symptoms; R73.9 Hyperglycemia, unspecified; Z87.891 Personal history of nicotine dependence; Z86.19 Personal history of other infectious and parasitic diseases; Z88.8 Allergy status to other drugs, medicaments and biological substances; Z91.013 Allergy to seafood
CPT/HCPCS: 36415; 80053; 82947; 85027; 86593; 86780; C9803; J0735; U0003; U0005

== ENCOUNTER 2021-04-26 12:32 | Inpatient (IN) | payer OTHER ==
[2021-04-26] MEDS ORDERED: MAG HYDROX/AL HYDROX/SIMETH 30 ML UNIT-DOSE CUP PO PRN (13:00)
[2021-04-26] MEDS ORDERED: LOPERAMIDE HCL 2 MG CAPSULE PO PRN (13:00)
[2021-04-26] MEDS ORDERED: ONDANSETRON *ODT* 4 MG TABLET SL PRN (13:00)
[2021-04-26] MEDS ORDERED: cloNIDine HCL 0.1 MG TABLET PO PRN (13:00)
[2021-04-26] MEDS ORDERED: IBUPROFEN 400 MG TABLET (FP) PO PRN (13:00)
[2021-04-26] MEDS ORDERED: BISMUTH SUBSALICYLATE 262 MG/15 ML BTL PO PRN (13:00)
[2021-04-26] MEDS ORDERED: ACETAMINOPHEN 325 MG TABLET (FP) PO PRN (13:00)
[2021-04-26] MEDS ORDERED: MAGNESIUM CITRATE 300 ML BOTTLE PO PRN (13:00)
[2021-04-26] MEDS ORDERED: NICOTINE 10 MG CARTRIDGE (INHALER) IH PRN (13:00)
[2021-04-26] MEDS ORDERED: methaDONE HCL 10 MG TABLET (FOR DETOX USE ONLY) PO ONE ×2 (13:00→18:15)
[2021-04-26] MEDS ORDERED: MENTHOL/PHENOL 1 EACH UD MM PRN (13:00)
[2021-04-26 13:24] VITALS: BMI 29.0
[2021-04-26] MEDS ORDERED: LACTULOSE 20 GM/30 ML UDC (FOR ORAL USE ONLY) PO ONE (13:51)
[2021-04-26 17:01] LABS: HEMATOCRIT 31.5 % (35.4-49); HEMOGLOBIN 10.7 GM/dL (11.7-16.9); MCH 27.3 pg (25.7-33.7); MCHC 33.8 g/dl (32.0-35.9); MEAN CELL VOLUME 80.9 fl (80-96); MEAN PLT VOLUME 6.7 fl (7.5-11.1); PLATELET COUNT 226 10^3/uL (134-434); RDW 15.2 % (11.9-15.9); WHITE BLOOD COUNT 7.2 K/mm3 (4.0-10.0)
[2021-04-26 17:06] LABS: ALBUMIN 3.4 g/dl (3.4-5.0); BLOOD UREA NITROGEN 21.4 mg/dL (7-18); CALCIUM 8.7 mg/dL (8.5-10.1)
[2021-04-26 17:09] LABS: CREATININE 1.2 mg/dL (0.55-1.3)
[2021-04-26 17:11] LABS: BILIRUBIN,TOTAL 0.5 mg/dL (0.2-1); TOT PROT 6.6 g/dl (6.4-8.2)
[2021-04-26] MEDS: hydrOXYzine PAMOATE 25 MG CAPSULE (FP) PO SCH ×3 (18:25→22:38)
[2021-04-26] MEDS: PRENATAL VITAMINS W/ FOLIC ACID TABLET (FP) PO SCH (18:31)
[2021-04-26] MEDS ORDERED: MELATONIN 5 MG TABLETS PO SCH (22:00)
[2021-04-26] MEDS: MAGNESIUM HYDROX 2400MG/30ML ORAL SUSPENSION 30 ML CUP PO PRN (22:37)
[2021-04-26] MEDS: TAMSULOSIN HCL 0.4 MG CAP PO SCH (22:37)
[2021-04-26] MEDS: THIAMINE HCL 100 MG TABLET (FP) PO SCH (22:37)
[2021-04-26] MEDS: diazePAM 5 MG TABLET PO PRN (22:38)
[2021-04-26] MEDS: CARVEDILOL 3.125 MG TABLET (FP) PO SCH (23:39)
[2021-04-26] MEDS: RANOLAZINE E.R. 500 MG TABLET (FP) PO SCH (23:39)
[2021-04-27] MEDS: hydrOXYzine PAMOATE 25 MG CAPSULE (FP) PO SCH ×5 (06:00→22:45)
[2021-04-27] MEDS: diazePAM 5 MG TABLET PO PRN ×2 (06:01→15:39)
[2021-04-27] MEDS ORDERED: DOCUSATE SODIUM 100 MG CAPSULE (FP) PO ONE (09:17)
[2021-04-27] MEDS ORDERED: BISACODYL 5 MG TABLET.DR (FP) PO ONE (09:19)
[2021-04-27] MEDS ORDERED: methaDONE HCL 10 MG TABLET (FOR DETOX USE ONLY) ONE (09:25)
[2021-04-27] MEDS: LOSARTAN POTASSIUM 50 MG TABLET PO SCH (10:11)
[2021-04-27] MEDS: ASPIRIN 81 MG CHEWABLE TABLETS PO SCH (10:11)
[2021-04-27] MEDS: METHOCARBAMOL 500 MG TABLET PO PRN (10:11)
[2021-04-27] MEDS: PANTOPRAZOLE 40 MG TABLET PO SCH (10:11)
[2021-04-27] MEDS: CLOPIDOGREL BISULFATE 75 MG TABLET (FP) PO SCH (10:11)
[2021-04-27] MEDS: PRENATAL VITAMINS W/ FOLIC ACID TABLET (FP) PO SCH (10:12)
[2021-04-27] MEDS: NIFEdipine E.R. 30 MG TABLET PO SCH (10:12)
[2021-04-27] MEDS: CARVEDILOL 3.125 MG TABLET (FP) PO SCH ×2 (10:14→22:45)
[2021-04-27] MEDS: RANOLAZINE E.R. 500 MG TABLET (FP) PO SCH ×2 (10:14→22:45)
[2021-04-27] MEDS: THIAMINE HCL 100 MG TABLET (FP) PO SCH (22:45)
[2021-04-27] MEDS: TAMSULOSIN HCL 0.4 MG CAP PO SCH (22:46)
[2021-04-28] MEDS: MAGNESIUM HYDROX 2400MG/30ML ORAL SUSPENSION 30 ML CUP PO PRN (04:23)
[2021-04-28] MEDS: hydrOXYzine PAMOATE 25 MG CAPSULE (FP) PO SCH ×3 (05:47→14:57)
[2021-04-28] MEDS: diazePAM 5 MG TABLET PO PRN ×3 (06:21→22:02)
[2021-04-28] MEDS ORDERED: methaDONE HCL 10 MG TABLET (FOR DETOX USE ONLY) PO ONE (10:00)
[2021-04-28] MEDS: RANOLAZINE E.R. 500 MG TABLET (FP) PO SCH ×2 (10:42→22:01)
[2021-04-28] MEDS: ASPIRIN 81 MG CHEWABLE TABLETS PO SCH (10:42)
[2021-04-28] MEDS: NIFEdipine E.R. 30 MG TABLET PO SCH (10:42)
[2021-04-28] MEDS: CLOPIDOGREL BISULFATE 75 MG TABLET (FP) PO SCH (10:42)
[2021-04-28] MEDS: PANTOPRAZOLE 40 MG TABLET PO SCH (10:42)
[2021-04-28] MEDS: METHOCARBAMOL 500 MG TABLET PO PRN (10:42)
[2021-04-28] MEDS: LOSARTAN POTASSIUM 50 MG TABLET PO SCH (10:42)
[2021-04-28] MEDS: PRENATAL VITAMINS W/ FOLIC ACID TABLET (FP) PO SCH (10:42)
[2021-04-28] MEDS: CARVEDILOL 3.125 MG TABLET (FP) PO SCH ×2 (10:42→22:01)
[2021-04-28] MEDS: POLYETHYLENE GLYCOL (HEALTHYLAX) 3350 17 GM PACKET PO SCH (15:08)
[2021-04-28] MEDS: TAMSULOSIN HCL 0.4 MG CAP PO SCH (22:02)
[2021-04-28] MEDS: ATORVASTATIN CA 80 MG TABLET (FP) PO SCH (22:02)
[2021-04-28] MEDS: THIAMINE HCL 100 MG TABLET (FP) PO SCH (22:03)
[2021-04-28] MEDS: SUVOREXANT 10 MG TABLET PO PRN (22:03)
[2021-04-29] MEDS: hydrOXYzine PAMOATE 25 MG CAPSULE (FP) PO PRN (06:03)
[2021-04-29] MEDS: diazePAM 5 MG TABLET PO PRN ×2 (06:03→14:17)
[2021-04-29] MEDS ORDERED: methaDONE HCL 10 MG TABLET (FOR DETOX USE ONLY) ONE (09:32)
[2021-04-29] MEDS: PANTOPRAZOLE 40 MG TABLET PO SCH (10:52)
[2021-04-29] MEDS: ASPIRIN 81 MG CHEWABLE TABLETS PO SCH (10:53)
[2021-04-29] MEDS: NIFEdipine E.R. 30 MG TABLET PO SCH (10:53)
[2021-04-29] MEDS: LOSARTAN POTASSIUM 50 MG TABLET PO SCH (10:53)
[2021-04-29] MEDS: PRENATAL VITAMINS W/ FOLIC ACID TABLET (FP) PO SCH (10:54)
[2021-04-29] MEDS: CLOPIDOGREL BISULFATE 75 MG TABLET (FP) PO SCH (10:54)
[2021-04-29] MEDS: CARVEDILOL 3.125 MG TABLET (FP) PO SCH ×2 (10:54→22:26)
[2021-04-29] MEDS: RANOLAZINE E.R. 500 MG TABLET (FP) PO SCH ×2 (10:55→22:27)
[2021-04-29] MEDS: POLYETHYLENE GLYCOL (HEALTHYLAX) 3350 17 GM PACKET PO SCH (10:55)
[2021-04-29] MEDS: TAMSULOSIN HCL 0.4 MG CAP PO SCH (22:26)
[2021-04-29] MEDS: SUVOREXANT 10 MG TABLET PO PRN (22:26)
[2021-04-29] MEDS: ATORVASTATIN CA 80 MG TABLET (FP) PO SCH (22:27)
[2021-04-29] MEDS: THIAMINE HCL 100 MG TABLET (FP) PO SCH (22:27)
[2021-04-30] MEDS: ACETAMINOPHEN 325 MG TABLET (FP) PO PRN (03:56)
[2021-04-30] MEDS: hydrOXYzine PAMOATE 25 MG CAPSULE (FP) PO PRN (03:57)
[2021-04-30] MEDS: ASPIRIN 81 MG CHEWABLE TABLETS PO SCH (09:39)
[2021-04-30] MEDS: LOSARTAN POTASSIUM 50 MG TABLET PO SCH (09:40)
[2021-04-30] MEDS: POLYETHYLENE GLYCOL (HEALTHYLAX) 3350 17 GM PACKET PO SCH (09:40)
[2021-04-30] MEDS: CLOPIDOGREL BISULFATE 75 MG TABLET (FP) PO SCH (09:40)
[2021-04-30] MEDS: CARVEDILOL 3.125 MG TABLET (FP) PO SCH ×2 (09:40→22:30)
[2021-04-30] MEDS: RANOLAZINE E.R. 500 MG TABLET (FP) PO SCH ×2 (09:41→22:30)
[2021-04-30] MEDS: PANTOPRAZOLE 40 MG TABLET PO SCH (09:41)
[2021-04-30] MEDS: NIFEdipine E.R. 30 MG TABLET PO SCH (09:41)
[2021-04-30] MEDS: PRENATAL VITAMINS W/ FOLIC ACID TABLET (FP) PO SCH (09:41)
[2021-04-30] MEDS ORDERED: methaDONE HCL 10 MG TABLET (FOR DETOX USE ONLY) PO ONE (10:00)
[2021-04-30] MEDS ORDERED: SUVOREXANT 10 MG TABLET PO PRN (22:00)
[2021-04-30] MEDS: THIAMINE HCL 100 MG TABLET (FP) PO SCH (22:30)
[2021-04-30] MEDS: TAMSULOSIN HCL 0.4 MG CAP PO SCH (22:30)
[2021-04-30] MEDS: ATORVASTATIN CA 80 MG TABLET (FP) PO SCH (22:30)
[2021-05-01 00:08] LABS: SARS-CoV-2 NAA Not Detected (Not Detected)
[2021-05-01] MEDS: hydrOXYzine PAMOATE 25 MG CAPSULE (FP) PO PRN (05:40)
[2021-05-01] MEDS: ACETAMINOPHEN 325 MG TABLET (FP) PO PRN (07:28)
[2021-05-01 09:07] VITALS: BP 133/63; PULSE 69; TEMP 97.5
[2021-05-01] MEDS: CLOPIDOGREL BISULFATE 75 MG TABLET (FP) PO SCH (09:25)
[2021-05-01] MEDS: NIFEdipine E.R. 30 MG TABLET PO SCH (09:26)
[2021-05-01] MEDS: RANOLAZINE E.R. 500 MG TABLET (FP) PO SCH (09:26)
[2021-05-01] MEDS: PANTOPRAZOLE 40 MG TABLET PO SCH (09:26)
[2021-05-01] MEDS: CARVEDILOL 3.125 MG TABLET (FP) PO SCH (09:26)
[2021-05-01] MEDS: PRENATAL VITAMINS W/ FOLIC ACID TABLET (FP) PO SCH (09:26)
[2021-05-01] MEDS: LOSARTAN POTASSIUM 50 MG TABLET PO SCH (09:26)
[2021-05-01] MEDS: POLYETHYLENE GLYCOL (HEALTHYLAX) 3350 17 GM PACKET PO SCH (09:26)
[2021-05-01] MEDS: ASPIRIN 81 MG CHEWABLE TABLETS PO SCH (09:26)
== END 2021-05-01 09:38 | disposition home or self-care (01) | DRG 773 ==
LOC: YASAS 12:32 → Y3N 17:06
PROVIDERS: ADMIT Allergy & Immunology; ATTEND Allergy & Immunology
PROC: HZ2ZZZZ Detoxification Services for Substance Abuse Treatment (ICD-10-PCS; principal; 2021-04-26)
DX: F11.23 Opioid dependence with withdrawal (principal); F13.20 Sedative, hypnotic or anxiolytic dependence, uncomplicated; F12.90 Cannabis use, unspecified, uncomplicated; F17.210 Nicotine dependence, cigarettes, uncomplicated; F19.282 Other psychoactive substance dependence with psychoactive substance-induced sleep disorder; F41.9 Anxiety disorder, unspecified; E78.5 Hyperlipidemia, unspecified; I25.10 Atherosclerotic heart disease of native coronary artery without angina pectoris; I10 Essential (primary) hypertension; Z95.1 Presence of aortocoronary bypass graft; N40.0 Benign prostatic hyperplasia without lower urinary tract symptoms; Z86.19 Personal history of other infectious and parasitic diseases; Z56.0 Unemployment, unspecified; Z88.8 Allergy status to other drugs, medicaments and biological substances; Z91.013 Allergy to seafood
CPT/HCPCS: 36415; 80053; 85027; 86593; 86780; C9803; U0003; U0005

== ENCOUNTER 2021-05-27 16:50 | Inpatient (IN) | payer OTHER ==
[2021-05-27 17:45] VITALS: BMI 30.4
[2021-05-27] MEDS ORDERED: MAG HYDROX/AL HYDROX/SIMETH 30 ML UNIT-DOSE CUP PO PRN (19:57)
[2021-05-27] MEDS ORDERED: methaDONE HCL 10 MG TABLET (FOR DETOX USE ONLY) PO ONE ×2 (19:57→23:00)
[2021-05-27] MEDS ORDERED: MAGNESIUM HYDROX 2400MG/30ML ORAL SUSPENSION 30 ML CUP PO PRN (19:57)
[2021-05-27] MEDS ORDERED: NICOTINE 10 MG CARTRIDGE (INHALER) IH PRN (19:57)
[2021-05-27] MEDS ORDERED: ONDANSETRON *ODT* 4 MG TABLET SL PRN (19:57)
[2021-05-27] MEDS ORDERED: NICOTINE POLACRILEX 2 MG GUM BUC PRN (19:57)
[2021-05-27] MEDS ORDERED: cloNIDine HCL 0.1 MG TABLET PO PRN (19:57)
[2021-05-27] MEDS ORDERED: diazePAM 5 MG TABLET PO ONE (19:57)
[2021-05-27] MEDS ORDERED: DICYCLOMINE HCL 10 MG CAPSULE PO PRN (19:57)
[2021-05-27] MEDS ORDERED: MENTHOL/PHENOL 1 EACH UD MM PRN (19:57)
[2021-05-27] MEDS ORDERED: LOPERAMIDE HCL 2 MG CAPSULE PO PRN (19:57)
[2021-05-27] MEDS ORDERED: MAGNESIUM CITRATE 300 ML BOTTLE PO PRN (19:57)
[2021-05-27] MEDS ORDERED: BISMUTH SUBSALICYLATE 524 MG/30 ML PO PRN (19:57)
[2021-05-27] MEDS ORDERED: ACETAMINOPHEN 325 MG TABLET (FP) PO PRN ×2 (19:57)
[2021-05-27] MEDS: BISACODYL 5 MG TABLET.DR (FP) PO SCH (22:31)
[2021-05-27] MEDS: SENNOSIDES 8.6MG TABLET (FP) PO SCH (22:31)
[2021-05-27] MEDS: MELATONIN 5 MG TABLETS PO SCH (22:32)
[2021-05-27] MEDS: THIAMINE HCL 100 MG TABLET (FP) PO SCH (22:32)
[2021-05-27] MEDS: ATORVASTATIN CA 80 MG TABLET (FP) PO SCH (22:32)
[2021-05-27] MEDS: diazePAM 5 MG TABLET PO SCH (22:37)
[2021-05-27] MEDS: CARVEDILOL 3.125 MG TABLET (FP) PO SCH (23:23)
[2021-05-27] MEDS ORDERED: TAMSULOSIN HCL 0.4 MG CAP PO ONE (23:53)
[2021-05-28] MEDS: METHOCARBAMOL 500 MG TABLET PO PRN (03:42)
[2021-05-28] MEDS: diazePAM 5 MG TABLET PO SCH ×4 (04:01→22:34)
[2021-05-28] MEDS: hydrOXYzine PAMOATE 25 MG CAPSULE (FP) PO PRN ×2 (04:01→10:15)
[2021-05-28] MEDS: diazePAM 5 MG TABLET PO PRN ×2 (06:57→13:08)
[2021-05-28] MEDS: IBUPROFEN 400 MG TABLET (FP) PO PRN (06:58)
[2021-05-28] MEDS ORDERED: methaDONE HCL 10 MG TABLET (FOR DETOX USE ONLY) ONE (09:04)
[2021-05-28] MEDS: PANTOPRAZOLE 40 MG TABLET PO SCH (10:15)
[2021-05-28] MEDS: TAMSULOSIN HCL 0.4 MG CAP PO SCH (10:15)
[2021-05-28] MEDS: PRENATAL VITAMINS W/ FOLIC ACID TABLET (FP) PO SCH (10:15)
[2021-05-28] MEDS: CLOPIDOGREL BISULFATE 75 MG TABLET (FP) PO SCH (10:15)
[2021-05-28] MEDS: ASPIRIN 81 MG CHEWABLE TABLETS PO SCH (10:15)
[2021-05-28] MEDS: LOSARTAN POTASSIUM 50 MG TABLET PO SCH (10:18)
[2021-05-28] MEDS: NIFEdipine E.R. 30 MG TABLET PO SCH (10:18)
[2021-05-28] MEDS: RANOLAZINE E.R. 500 MG TABLET (FP) PO SCH ×2 (10:18→22:34)
[2021-05-28] MEDS: CARVEDILOL 3.125 MG TABLET (FP) PO SCH ×2 (10:20→22:34)
[2021-05-28] MEDS: ATORVASTATIN CA 80 MG TABLET (FP) PO SCH (22:34)
[2021-05-28] MEDS: MELATONIN 5 MG TABLETS PO SCH (22:34)
[2021-05-28] MEDS: BISACODYL 5 MG TABLET.DR (FP) PO SCH (22:34)
[2021-05-28] MEDS: THIAMINE HCL 100 MG TABLET (FP) PO SCH (22:34)
[2021-05-28] MEDS: SENNOSIDES 8.6MG TABLET (FP) PO SCH (23:56)
[2021-05-29] MEDS: diazePAM 5 MG TABLET PO PRN ×3 (03:05→23:57)
[2021-05-29] MEDS: diazePAM 5 MG TABLET PO SCH ×3 (05:54→22:09)
[2021-05-29] MEDS ORDERED: methaDONE HCL 10 MG TABLET (FOR DETOX USE ONLY) PO ONE (10:00)
[2021-05-29] MEDS: PRENATAL VITAMINS W/ FOLIC ACID TABLET (FP) PO SCH (10:07)
[2021-05-29] MEDS: CLOPIDOGREL BISULFATE 75 MG TABLET (FP) PO SCH (10:08)
[2021-05-29] MEDS: TAMSULOSIN HCL 0.4 MG CAP PO SCH (10:08)
[2021-05-29] MEDS: ASPIRIN 81 MG CHEWABLE TABLETS PO SCH (10:08)
[2021-05-29] MEDS: PANTOPRAZOLE 40 MG TABLET PO SCH (10:08)
[2021-05-29] MEDS: CARVEDILOL 3.125 MG TABLET (FP) PO SCH ×2 (10:08→22:08)
[2021-05-29] MEDS: NIFEdipine E.R. 30 MG TABLET PO SCH (10:09)
[2021-05-29] MEDS: RANOLAZINE E.R. 500 MG TABLET (FP) PO SCH ×2 (10:09→22:08)
[2021-05-29] MEDS: LOSARTAN POTASSIUM 50 MG TABLET PO SCH (10:09)
[2021-05-29 14:39] LABS: HEMATOCRIT 31.7 % (35.4-49); HEMOGLOBIN 10.7 GM/dL (11.7-16.9); MCH 27.1 pg (25.7-33.7); MCHC 33.9 g/dl (32.0-35.9); MEAN CELL VOLUME 79.9 fl (80-96); MEAN PLT VOLUME 6.6 fl (7.5-11.1); PLATELET COUNT 209 10^3/uL (134-434); RBC 3.97 M/mm3 (4.00-5.60); RDW 14.6 % (11.9-15.9); WHITE BLOOD COUNT 4.4 K/mm3 (4.0-10.0)
[2021-05-29 14:55] LABS: ALBUMIN 2.8 g/dl (3.4-5.0); BLOOD UREA NITROGEN 9.7 mg/dL (7-18); CALCIUM 7.9 mg/dL (8.5-10.1)
[2021-05-29 14:58] LABS: CREATININE 0.9 mg/dL (0.55-1.3)
[2021-05-29 15:00] LABS: BILIRUBIN,TOTAL 0.5 mg/dL (0.2-1)
[2021-05-29] MEDS: THIAMINE HCL 100 MG TABLET (FP) PO SCH (22:08)
[2021-05-29] MEDS: BISACODYL 5 MG TABLET.DR (FP) PO SCH (22:08)
[2021-05-29] MEDS: MELATONIN 5 MG TABLETS PO SCH (22:08)
[2021-05-29] MEDS: ATORVASTATIN CA 80 MG TABLET (FP) PO SCH (22:09)
[2021-05-29] MEDS: SENNOSIDES 8.6MG TABLET (FP) PO SCH (22:09)
[2021-05-30 00:06] LABS: SARS-CoV-2 NAA Not Detected (Not Detected)
[2021-05-30] MEDS: METHOCARBAMOL 500 MG TABLET PO PRN (05:19)
[2021-05-30] MEDS: diazePAM 5 MG TABLET PO SCH ×2 (05:19→17:37)
[2021-05-30] MEDS ORDERED: methaDONE HCL 10 MG TABLET (FOR DETOX USE ONLY) ONE (09:41)
[2021-05-30] MEDS: PRENATAL VITAMINS W/ FOLIC ACID TABLET (FP) PO SCH (10:00)
[2021-05-30] MEDS: LOSARTAN POTASSIUM 50 MG TABLET PO SCH (10:00)
[2021-05-30] MEDS: CARVEDILOL 3.125 MG TABLET (FP) PO SCH ×2 (10:01→21:59)
[2021-05-30] MEDS: ASPIRIN 81 MG CHEWABLE TABLETS PO SCH (10:01)
[2021-05-30] MEDS: NIFEdipine E.R. 30 MG TABLET PO SCH (10:01)
[2021-05-30] MEDS: RANOLAZINE E.R. 500 MG TABLET (FP) PO SCH ×2 (10:01→21:59)
[2021-05-30] MEDS: TAMSULOSIN HCL 0.4 MG CAP PO SCH (10:01)
[2021-05-30] MEDS: PANTOPRAZOLE 40 MG TABLET PO SCH (10:01)
[2021-05-30] MEDS: CLOPIDOGREL BISULFATE 75 MG TABLET (FP) PO SCH (10:01)
[2021-05-30] MEDS: diazePAM 5 MG TABLET PO PRN ×2 (10:03→14:08)
[2021-05-30] MEDS: ATORVASTATIN CA 80 MG TABLET (FP) PO SCH (21:58)
[2021-05-30] MEDS: BISACODYL 5 MG TABLET.DR (FP) PO SCH (21:59)
[2021-05-30] MEDS: SENNOSIDES 8.6MG TABLET (FP) PO SCH (21:59)
[2021-05-30] MEDS: THIAMINE HCL 100 MG TABLET (FP) PO SCH (21:59)
[2021-05-30] MEDS: MELATONIN 5 MG TABLETS PO SCH (22:04)
[2021-05-31] MEDS: hydrOXYzine PAMOATE 25 MG CAPSULE (FP) PO PRN (02:04)
[2021-05-31] MEDS: IBUPROFEN 400 MG TABLET (FP) PO PRN (02:04)
[2021-05-31] MEDS ORDERED: diazePAM 5 MG TABLET PO ONE (06:00)
[2021-05-31 09:44] VITALS: BP 154/87; PULSE 63; TEMP 97.6
[2021-05-31] MEDS: CARVEDILOL 3.125 MG TABLET (FP) PO SCH (09:58)
[2021-05-31] MEDS: RANOLAZINE E.R. 500 MG TABLET (FP) PO SCH (09:58)
[2021-05-31] MEDS: PANTOPRAZOLE 40 MG TABLET PO SCH (09:58)
[2021-05-31] MEDS: TAMSULOSIN HCL 0.4 MG CAP PO SCH (09:59)
[2021-05-31] MEDS: NIFEdipine E.R. 30 MG TABLET PO SCH (09:59)
[2021-05-31] MEDS: ASPIRIN 81 MG CHEWABLE TABLETS PO SCH (09:59)
[2021-05-31] MEDS: LOSARTAN POTASSIUM 50 MG TABLET PO SCH (09:59)
[2021-05-31] MEDS: CLOPIDOGREL BISULFATE 75 MG TABLET (FP) PO SCH (09:59)
[2021-05-31] MEDS: PRENATAL VITAMINS W/ FOLIC ACID TABLET (FP) PO SCH (10:00)
[2021-05-31] MEDS ORDERED: methaDONE HCL 10 MG TABLET (FOR DETOX USE ONLY) PO ONE (10:00)
== END 2021-05-31 11:05 | disposition home or self-care (01) | DRG 773 ==
LOC: YASAS 16:50 → Y6N 19:43
PROVIDERS: ADMIT Allergy & Immunology; ATTEND Allergy & Immunology
PROC: HZ2ZZZZ Detoxification Services for Substance Abuse Treatment (ICD-10-PCS; principal; 2021-05-27)
DX: F11.23 Opioid dependence with withdrawal (principal); F10.230 Alcohol dependence with withdrawal, uncomplicated; F12.20 Cannabis dependence, uncomplicated; F17.210 Nicotine dependence, cigarettes, uncomplicated; F41.9 Anxiety disorder, unspecified; F19.282 Other psychoactive substance dependence with psychoactive substance-induced sleep disorder; F19.280 Other psychoactive substance dependence with psychoactive substance-induced anxiety disorder; I20.8 Other forms of angina pectoris; I10 Essential (primary) hypertension; I25.10 Atherosclerotic heart disease of native coronary artery without angina pectoris; E78.5 Hyperlipidemia, unspecified; N40.0 Benign prostatic hyperplasia without lower urinary tract symptoms; E66.9 Obesity, unspecified; Z68.30 Body mass index [BMI] 30.0-30.9, adult; E86.0 Dehydration; Z91.013 Allergy to seafood; Z88.8 Allergy status to other drugs, medicaments and biological substances; Z95.5 Presence of coronary angioplasty implant and graft; Z95.1 Presence of aortocoronary bypass graft; Z86.19 Personal history of other infectious and parasitic diseases
CPT/HCPCS: 36415; 80053; 85027; 86593; 86780; 87811; C9803-CS; U0003; U0005

== ENCOUNTER 2021-06-26 12:32 | Inpatient (IN) | payer OTHER ==
[2021-06-26] MEDS ORDERED: BENZOCAINE/MENTHOL (CHLORASEPTIC ) LOZENGE MM PRN (13:21)
[2021-06-26] MEDS ORDERED: cloNIDine HCL 0.1 MG TABLET PO PRN (13:21)
[2021-06-26] MEDS ORDERED: MAG HYDROX/AL HYDROX/SIMETH 30 ML UNIT-DOSE CUP PO PRN (13:21)
[2021-06-26] MEDS ORDERED: IBUPROFEN 400 MG TABLET (FP) PO PRN (13:21)
[2021-06-26] MEDS ORDERED: NALOXONE HCL (KLOXXADO) 8 MG SPRAY NS PRN (13:21)
[2021-06-26] MEDS ORDERED: ONDANSETRON *ODT* 4 MG TABLET SL PRN (13:21)
[2021-06-26] MEDS ORDERED: MAGNESIUM CITRATE 300 ML BOTTLE PO PRN (13:21)
[2021-06-26] MEDS ORDERED: METHOCARBAMOL 500 MG TABLET PO PRN (13:21)
[2021-06-26] MEDS ORDERED: LOPERAMIDE HCL 2 MG CAPSULE PO PRN (13:21)
[2021-06-26] MEDS ORDERED: DICYCLOMINE HCL 10 MG CAPSULE PO PRN (13:21)
[2021-06-26] MEDS ORDERED: ACETAMINOPHEN 325 MG TABLET (FP) PO PRN ×2 (13:21)
[2021-06-26] MEDS ORDERED: NICOTINE 10 MG CARTRIDGE (INHALER) IH PRN (13:21)
[2021-06-26] MEDS ORDERED: BISMUTH SUBSALICYLATE 524 MG/30 ML PO PRN (13:21)
[2021-06-26] MEDS ORDERED: diazePAM 5 MG TABLET PO PRN (13:29)
[2021-06-26] MEDS ORDERED: CARVEDILOL 3.125 MG TABLET (FP) PO SCH (13:30)
[2021-06-26] MEDS ORDERED: methaDONE HCL 10 MG TABLET (FOR DETOX USE ONLY) PO ONE ×2 (14:00→17:45)
[2021-06-26 14:33] VITALS: BMI 27.3
[2021-06-26] MEDS ORDERED: hydrOXYzine PAMOATE 25 MG CAPSULE (FP) PO PRN (15:42)
[2021-06-26 16:45] LABS: ALBUMIN 3.6 g/dl (3.4-5.0); BLOOD UREA NITROGEN 18.5 mg/dL (7-18)
[2021-06-26 16:47] LABS: HEMATOCRIT 33.2 % (35.4-49); HEMOGLOBIN 11.1 GM/dL (11.7-16.9); MCH 26.7 pg (25.7-33.7); MCHC 33.3 g/dl (32.0-35.9); MEAN CELL VOLUME 80.2 fl (80-96); MEAN PLT VOLUME 6.9 fl (7.5-11.1); PLATELET COUNT 248 10^3/uL (134-434); RBC 4.14 M/mm3 (4.00-5.60); RDW 15.1 % (11.9-15.9); WHITE BLOOD COUNT 7.1 K/mm3 (4.0-10.0)
[2021-06-26 16:49] LABS: CREATININE 1.3 mg/dL (0.55-1.3)
[2021-06-26 16:50] LABS: BILIRUBIN,TOTAL 0.5 mg/dL (0.2-1); TOT PROT 6.8 g/dl (6.4-8.2)
[2021-06-26] MEDS: MAGNESIUM HYDROX 2400MG/30ML ORAL SUSPENSION 30 ML CUP PO PRN (17:31)
[2021-06-26] MEDS ORDERED: CARVEDILOL 6.25 MG TABLET (FP) PO SCH (17:38)
[2021-06-26] MEDS: diazePAM 5 MG TABLET PO SCH ×2 (17:53→22:19)
[2021-06-26] MEDS: diazePAM 5 MG TABLET PO PRN (18:08)
[2021-06-26] MEDS: hydrOXYzine PAMOATE 25 MG CAPSULE (FP) PO SCH ×2 (18:09→22:47)
[2021-06-26] MEDS: CLOPIDOGREL BISULFATE 75 MG TABLET (FP) PO SCH (18:09)
[2021-06-26] MEDS ORDERED: MELATONIN 5 MG TABLETS PO SCH (22:00)
[2021-06-26] MEDS: CARVEDILOL 6.25 MG TABLET (FP) PO SCH ×2 (22:18→22:48)
[2021-06-26] MEDS: ATORVASTATIN CA 80 MG TABLET (FP) PO SCH (22:47)
[2021-06-26] MEDS: TAMSULOSIN HCL 0.4 MG CAP PO SCH (22:47)
[2021-06-26] MEDS: THIAMINE HCL 100 MG TABLET (FP) PO SCH (22:47)
[2021-06-26] MEDS: BISACODYL 5 MG TABLET.DR (FP) PO PRN (22:49)
[2021-06-26] MEDS: SENNOSIDES 8.6MG TABLET (FP) PO SCH (22:51)
[2021-06-26] MEDS: RANOLAZINE E.R. 500 MG TABLET (FP) PO SCH (22:52)
[2021-06-26] MEDS: PRENATAL VITAMINS W/ FOLIC ACID TABLET (FP) PO SCH (22:53)
[2021-06-27] MEDS: NICOTINE 7 MG/24 HOURS TOPICAL PATCH TD SCH ×2 (01:19→10:24)
[2021-06-27] MEDS: diazePAM 5 MG TABLET PO PRN ×3 (03:49→21:41)
[2021-06-27] MEDS: diazePAM 5 MG TABLET PO SCH ×4 (06:16→23:16)
[2021-06-27] MEDS ORDERED: methaDONE HCL 40 MG DISPERSABLE TABLET PO ONE (09:03)
[2021-06-27] MEDS ORDERED: NIFEdipine E.R. 30 MG TABLET PO SCH (10:00)
[2021-06-27] MEDS: ASPIRIN 81 MG CHEWABLE TABLETS PO SCH (10:22)
[2021-06-27] MEDS: CARVEDILOL 6.25 MG TABLET (FP) PO SCH ×3 (10:24→23:15)
[2021-06-27] MEDS: BISACODYL 5 MG TABLET.DR (FP) PO PRN (10:24)
[2021-06-27] MEDS: CLOPIDOGREL BISULFATE 75 MG TABLET (FP) PO SCH (10:24)
[2021-06-27] MEDS: RANOLAZINE E.R. 500 MG TABLET (FP) PO SCH ×2 (10:25→21:39)
[2021-06-27] MEDS: PRENATAL VITAMINS W/ FOLIC ACID TABLET (FP) PO SCH (10:25)
[2021-06-27] MEDS: PANTOPRAZOLE 40 MG TABLET PO SCH (10:25)
[2021-06-27] MEDS: NIFEdipine E.R 60 MG TABLET PO SCH (13:04)
[2021-06-27] MEDS: hydrOXYzine PAMOATE 25 MG CAPSULE (FP) PO PRN (13:05)
[2021-06-27] MEDS: MAGNESIUM HYDROX 2400MG/30ML ORAL SUSPENSION 30 ML CUP PO PRN (14:38)
[2021-06-27] MEDS ORDERED: POTASSIUM CHLORIDE ORAL LIQUID 20 MEQ/15 ML PO ONE ×2 (18:30→22:30)
[2021-06-27] MEDS: LOSARTAN POTASSIUM 50 MG TABLET PO SCH (19:13)
[2021-06-27] MEDS: ATORVASTATIN CA 80 MG TABLET (FP) PO SCH (21:39)
[2021-06-27] MEDS: THIAMINE HCL 100 MG TABLET (FP) PO SCH (21:40)
[2021-06-27] MEDS: TAMSULOSIN HCL 0.4 MG CAP PO SCH (21:40)
[2021-06-27] MEDS: DOCUSATE SODIUM 100 MG CAPSULE (FP) PO SCH (21:40)
[2021-06-27] MEDS: SENNOSIDES 8.6MG TABLET (FP) PO SCH (21:44)
[2021-06-28] MEDS: diazePAM 5 MG TABLET PO PRN ×4 (03:57→21:57)
[2021-06-28] MEDS: diazePAM 5 MG TABLET PO SCH ×3 (06:10→22:49)
[2021-06-28] MEDS: methaDONE HCL 40 MG DISPERSABLE TABLET PO SCH (06:10)
[2021-06-28] MEDS: DOCUSATE SODIUM 100 MG CAPSULE (FP) PO SCH ×3 (06:10→22:43)
[2021-06-28] MEDS: PRENATAL VITAMINS W/ FOLIC ACID TABLET (FP) PO SCH (10:00)
[2021-06-28] MEDS ORDERED: methaDONE HCL 10 MG TABLET (FOR DETOX USE ONLY) PO ONE (10:00)
[2021-06-28] MEDS: CARVEDILOL 6.25 MG TABLET (FP) PO SCH ×2 (10:00→22:45)
[2021-06-28] MEDS: ASPIRIN 81 MG CHEWABLE TABLETS PO SCH (10:01)
[2021-06-28] MEDS: CLOPIDOGREL BISULFATE 75 MG TABLET (FP) PO SCH (10:01)
[2021-06-28] MEDS: PANTOPRAZOLE 40 MG TABLET PO SCH (10:01)
[2021-06-28] MEDS: LOSARTAN POTASSIUM 50 MG TABLET PO SCH (10:03)
[2021-06-28] MEDS: RANOLAZINE E.R. 500 MG TABLET (FP) PO SCH ×2 (10:03→22:44)
[2021-06-28] MEDS: NIFEdipine E.R 60 MG TABLET PO SCH (10:03)
[2021-06-28] MEDS: NICOTINE 7 MG/24 HOURS TOPICAL PATCH TD SCH (10:04)
[2021-06-28] MEDS ORDERED: LACTULOSE 20 GM/30 ML UDC (FOR ORAL USE ONLY) PO PRN (12:23)
[2021-06-28] MEDS: hydrOXYzine PAMOATE 25 MG CAPSULE (FP) PO PRN ×3 (13:08→22:43)
[2021-06-28 14:08] LABS: SARS-CoV-2 NAA Not Detected (Not Detected)
[2021-06-28] MEDS: THIAMINE HCL 100 MG TABLET (FP) PO SCH (22:44)
[2021-06-28] MEDS: TAMSULOSIN HCL 0.4 MG CAP PO SCH (22:44)
[2021-06-28] MEDS: ATORVASTATIN CA 80 MG TABLET (FP) PO SCH (22:44)
[2021-06-28] MEDS: SENNOSIDES 8.6MG TABLET (FP) PO SCH (22:46)
[2021-06-28] MEDS: SUVOREXANT 10 MG TABLET PO PRN (22:47)
[2021-06-29] MEDS: diazePAM 5 MG TABLET PO PRN ×2 (03:36→10:52)
[2021-06-29] MEDS: methaDONE HCL 40 MG DISPERSABLE TABLET PO SCH (07:05)
[2021-06-29] MEDS: DOCUSATE SODIUM 100 MG CAPSULE (FP) PO SCH ×3 (07:05→22:43)
[2021-06-29] MEDS: diazePAM 5 MG TABLET PO SCH ×2 (07:05→19:36)
[2021-06-29] MEDS: PRENATAL VITAMINS W/ FOLIC ACID TABLET (FP) PO SCH (10:52)
[2021-06-29] MEDS: ASPIRIN 81 MG CHEWABLE TABLETS PO SCH (10:52)
[2021-06-29] MEDS: hydrOXYzine PAMOATE 25 MG CAPSULE (FP) PO PRN ×3 (10:52→22:43)
[2021-06-29] MEDS: CLOPIDOGREL BISULFATE 75 MG TABLET (FP) PO SCH (10:52)
[2021-06-29] MEDS: PANTOPRAZOLE 40 MG TABLET PO SCH (10:52)
[2021-06-29] MEDS: CARVEDILOL 6.25 MG TABLET (FP) PO SCH ×2 (10:52→22:44)
[2021-06-29] MEDS: RANOLAZINE E.R. 500 MG TABLET (FP) PO SCH ×2 (10:53→22:43)
[2021-06-29] MEDS: NIFEdipine E.R 60 MG TABLET PO SCH (10:53)
[2021-06-29] MEDS: NICOTINE 7 MG/24 HOURS TOPICAL PATCH TD SCH (10:54)
[2021-06-29] MEDS: LOSARTAN POTASSIUM 50 MG TABLET PO SCH (10:55)
[2021-06-29 21:28] VITALS: BP 131/67
[2021-06-29] MEDS: ATORVASTATIN CA 80 MG TABLET (FP) PO SCH (22:42)
[2021-06-29] MEDS: THIAMINE HCL 100 MG TABLET (FP) PO SCH (22:42)
[2021-06-29] MEDS: TAMSULOSIN HCL 0.4 MG CAP PO SCH (22:42)
[2021-06-29] MEDS: SUVOREXANT 10 MG TABLET PO PRN (22:44)
[2021-06-29] MEDS: SENNOSIDES 8.6MG TABLET (FP) PO SCH (23:17)
[2021-06-30] MEDS: DOCUSATE SODIUM 100 MG CAPSULE (FP) PO SCH (05:54)
[2021-06-30] MEDS: methaDONE HCL 40 MG DISPERSABLE TABLET PO SCH (05:55)
[2021-06-30] MEDS ORDERED: diazePAM 5 MG TABLET PO ONE (06:00)
[2021-06-30 08:21] VITALS: PULSE 63; TEMP 98.2
[2021-06-30] MEDS: CLOPIDOGREL BISULFATE 75 MG TABLET (FP) PO SCH (09:14)
[2021-06-30] MEDS: NICOTINE 7 MG/24 HOURS TOPICAL PATCH TD SCH (09:14)
[2021-06-30] MEDS: CARVEDILOL 6.25 MG TABLET (FP) PO SCH (09:14)
[2021-06-30] MEDS: PANTOPRAZOLE 40 MG TABLET PO SCH (09:14)
[2021-06-30] MEDS: ASPIRIN 81 MG CHEWABLE TABLETS PO SCH (09:14)
[2021-06-30] MEDS: LOSARTAN POTASSIUM 50 MG TABLET PO SCH (09:14)
[2021-06-30] MEDS: RANOLAZINE E.R. 500 MG TABLET (FP) PO SCH (09:15)
[2021-06-30] MEDS: NIFEdipine E.R 60 MG TABLET PO SCH (09:15)
[2021-06-30] MEDS: PRENATAL VITAMINS W/ FOLIC ACID TABLET (FP) PO SCH (09:16)
[2021-06-30] MEDS ORDERED: methaDONE HCL 10 MG TABLET (FOR DETOX USE ONLY) PO ONE (10:00)
== END 2021-06-30 09:20 | disposition home or self-care (01) | DRG 774 ==
LOC: YASAS 12:32 → Y6N 16:53
PROVIDERS: ADMIT Allergy & Immunology; ATTEND Allergy & Immunology
PROC: HZ2ZZZZ Detoxification Services for Substance Abuse Treatment (ICD-10-PCS; principal; 2021-06-26)
DX: F10.230 Alcohol dependence with withdrawal, uncomplicated (principal); F14.20 Cocaine dependence, uncomplicated; F12.20 Cannabis dependence, uncomplicated; F17.210 Nicotine dependence, cigarettes, uncomplicated; F19.282 Other psychoactive substance dependence with psychoactive substance-induced sleep disorder; F19.280 Other psychoactive substance dependence with psychoactive substance-induced anxiety disorder; F41.9 Anxiety disorder, unspecified; E78.5 Hyperlipidemia, unspecified; I25.118 Atherosclerotic heart disease of native coronary artery with other forms of angina pectoris; I10 Essential (primary) hypertension; N40.0 Benign prostatic hyperplasia without lower urinary tract symptoms; R63.8 Other symptoms and signs concerning food and fluid intake; Z95.1 Presence of aortocoronary bypass graft; Z95.5 Presence of coronary angioplasty implant and graft; Z88.8 Allergy status to other drugs, medicaments and biological substances; Z91.013 Allergy to seafood
CPT/HCPCS: 36415; 80053; 82962; 84132; 85027; 86593; 86780; C9803-CS; J0735; U0003; U0005

== ENCOUNTER 2021-07-31 18:25 | Inpatient (IN) | payer OTHER ==
[2021-07-31 19:42] VITALS: BMI 28.0
[2021-07-31] MEDS ORDERED: ACETAMINOPHEN 325 MG TABLET (FP) PO PRN ×2 (20:40)
[2021-07-31] MEDS ORDERED: guaiFENesin 200 MG/10 ML 10 ML UNIT-DOSE CUPS PO PRN (20:40)
[2021-07-31] MEDS ORDERED: DICYCLOMINE HCL 10 MG CAPSULE PO PRN (20:40)
[2021-07-31] MEDS ORDERED: P-EPHED 60MG/TRIPROLIDI 2.5MG TABLET PO PRN (20:40)
[2021-07-31] MEDS ORDERED: MAGNESIUM CITRATE 300 ML BOTTLE PO PRN (20:40)
[2021-07-31] MEDS ORDERED: MAG HYDROX/AL HYDROX/SIMETH 30 ML UNIT-DOSE CUP PO PRN (20:40)
[2021-07-31] MEDS ORDERED: LOPERAMIDE HCL 2 MG CAPSULE PO PRN (20:40)
[2021-07-31] MEDS ORDERED: BISMUTH SUBSALICYLATE 524 MG/30 ML PO PRN (20:40)
[2021-07-31] MEDS ORDERED: IBUPROFEN 600 MG TABLET (FP) PO PRN (20:40)
[2021-07-31] MEDS ORDERED: ONDANSETRON *ODT* 4 MG TABLET SL PRN (20:40)
[2021-07-31] MEDS ORDERED: NALOXONE HCL (KLOXXADO) 8 MG SPRAY NS PRN (20:40)
[2021-07-31] MEDS ORDERED: BENZOCAINE/MENTHOL (CHLORASEPTIC ) LOZENGE MM PRN (20:40)
[2021-07-31] MEDS ORDERED: NICOTINE POLACRILEX 2 MG GUM BUC PRN (20:40)
[2021-07-31] MEDS ORDERED: MAGNESIUM HYDROX 2400MG/30ML ORAL SUSPENSION 30 ML CUP PO PRN (20:40)
[2021-07-31] MEDS ORDERED: NALOXONE HCL 0.4 MG/ML VIAL IM PRN (20:40)
[2021-07-31] MEDS ORDERED: IBUPROFEN 400 MG TABLET (FP) PO PRN (20:40)
[2021-07-31] MEDS ORDERED: SENNOSIDES 8.6MG TABLET (FP) PO PRN (20:45)
[2021-07-31] MEDS ORDERED: methaDONE HCL 40 MG DISPERSABLE TABLET PO ONE (21:25)
[2021-07-31] MEDS: MELATONIN 5 MG TABLETS PO SCH (22:35)
[2021-07-31] MEDS: DOCUSATE SODIUM 100 MG CAPSULE (FP) PO SCH (22:36)
[2021-07-31] MEDS: THIAMINE HCL 100 MG TABLET (FP) PO SCH (22:36)
[2021-07-31] MEDS: diazePAM 5 MG TABLET PO SCH (22:38)
[2021-08-01] MEDS: diazePAM 5 MG TABLET PO PRN ×2 (01:51→20:25)
[2021-08-01] MEDS: diazePAM 5 MG TABLET PO SCH ×4 (07:22→22:51)
[2021-08-01] MEDS: DOCUSATE SODIUM 100 MG CAPSULE (FP) PO SCH ×3 (07:23→22:45)
[2021-08-01] MEDS: PRENATAL VITAMINS W/ FOLIC ACID TABLET (FP) PO SCH (10:17)
[2021-08-01] MEDS: NIFEdipine E.R 60 MG TABLET PO SCH (11:28)
[2021-08-01] MEDS: ASPIRIN 81 MG CHEWABLE TABLETS PO SCH (11:28)
[2021-08-01] MEDS: NICOTINE 14 MG/24 HOURS TOPICAL PATCH TD SCH (11:29)
[2021-08-01] MEDS: methaDONE HCL 40 MG DISPERSABLE TABLET PO SCH (11:29)
[2021-08-01] MEDS: RANOLAZINE E.R. 500 MG TABLET (FP) PO SCH ×2 (12:49→22:45)
[2021-08-01] MEDS: CLOPIDOGREL BISULFATE 75 MG TABLET (FP) PO SCH (12:49)
[2021-08-01 14:11] LABS: HEMOGLOBIN 11.2 GM/dL (11.7-16.9); MCH 26.6 pg (25.7-33.7); MCHC 32.8 g/dl (32.0-35.9); MEAN CELL VOLUME 80.9 fl (80-96); MEAN PLT VOLUME 6.6 fl (7.5-11.1); PLATELET COUNT 218 10^3/uL (134-434); RDW 15.7 % (11.9-15.9)
[2021-08-01 15:25] LABS: ALBUMIN 3.1 g/dl (3.4-5.0); BLOOD UREA NITROGEN 21.4 mg/dL (7-18)
[2021-08-01 15:30] LABS: BILIRUBIN,TOTAL 0.3 mg/dL (0.2-1)
[2021-08-01 15:31] LABS: TOT PROT 6.3 g/dl (6.4-8.2)
[2021-08-01] MEDS: TAMSULOSIN HCL 0.4 MG CAP PO SCH (22:45)
[2021-08-01] MEDS: busPIRone HCL 10 MG TABLET (FP) PO SCH (22:45)
[2021-08-01] MEDS: MELATONIN 5 MG TABLETS PO SCH (22:45)
[2021-08-01] MEDS: ATORVASTATIN CA 80 MG TABLET (FP) PO SCH (22:45)
[2021-08-01] MEDS: THIAMINE HCL 100 MG TABLET (FP) PO SCH (22:45)
[2021-08-01] MEDS: METHOCARBAMOL 500 MG TABLET PO PRN (22:48)
[2021-08-01] MEDS: CARVEDILOL 3.125 MG TABLET (FP) PO SCH (22:49)
[2021-08-02] MEDS: diazePAM 5 MG TABLET PO PRN ×2 (00:41→18:44)
[2021-08-02] MEDS: diazePAM 5 MG TABLET PO SCH ×3 (06:20→22:29)
[2021-08-02] MEDS: DOCUSATE SODIUM 100 MG CAPSULE (FP) PO SCH ×3 (06:20→22:28)
[2021-08-02] MEDS: methaDONE HCL 40 MG DISPERSABLE TABLET PO SCH (10:21)
[2021-08-02] MEDS: NIFEdipine E.R 60 MG TABLET PO SCH (10:22)
[2021-08-02] MEDS: CLOPIDOGREL BISULFATE 75 MG TABLET (FP) PO SCH (10:22)
[2021-08-02] MEDS: ASPIRIN 81 MG CHEWABLE TABLETS PO SCH (10:22)
[2021-08-02] MEDS: RANOLAZINE E.R. 500 MG TABLET (FP) PO SCH ×2 (10:22→22:28)
[2021-08-02] MEDS: PRENATAL VITAMINS W/ FOLIC ACID TABLET (FP) PO SCH (10:22)
[2021-08-02] MEDS: busPIRone HCL 10 MG TABLET (FP) PO SCH ×2 (10:22→22:28)
[2021-08-02] MEDS: CARVEDILOL 3.125 MG TABLET (FP) PO SCH ×2 (10:22→22:28)
[2021-08-02] MEDS: NICOTINE 14 MG/24 HOURS TOPICAL PATCH TD SCH (10:22)
[2021-08-02] MEDS: MELATONIN 5 MG TABLETS PO SCH (22:27)
[2021-08-02] MEDS: THIAMINE HCL 100 MG TABLET (FP) PO SCH (22:28)
[2021-08-02] MEDS: TAMSULOSIN HCL 0.4 MG CAP PO SCH (22:29)
[2021-08-02] MEDS: ATORVASTATIN CA 80 MG TABLET (FP) PO SCH (22:29)
[2021-08-03] MEDS: diazePAM 5 MG TABLET PO PRN ×3 (01:39→14:21)
[2021-08-03] MEDS: diazePAM 5 MG TABLET PO SCH ×2 (05:42→17:57)
[2021-08-03] MEDS: DOCUSATE SODIUM 100 MG CAPSULE (FP) PO SCH ×3 (05:42→22:16)
[2021-08-03] MEDS: METHOCARBAMOL 500 MG TABLET PO PRN (10:19)
[2021-08-03] MEDS: CLOPIDOGREL BISULFATE 75 MG TABLET (FP) PO SCH (10:19)
[2021-08-03] MEDS: busPIRone HCL 10 MG TABLET (FP) PO SCH ×2 (10:19→22:16)
[2021-08-03] MEDS: methaDONE HCL 40 MG DISPERSABLE TABLET PO SCH (10:19)
[2021-08-03] MEDS: CARVEDILOL 3.125 MG TABLET (FP) PO SCH ×2 (10:20→22:17)
[2021-08-03] MEDS: NICOTINE 14 MG/24 HOURS TOPICAL PATCH TD SCH (10:20)
[2021-08-03] MEDS: RANOLAZINE E.R. 500 MG TABLET (FP) PO SCH ×2 (10:20→22:17)
[2021-08-03] MEDS: NIFEdipine E.R 60 MG TABLET PO SCH (10:20)
[2021-08-03] MEDS: PRENATAL VITAMINS W/ FOLIC ACID TABLET (FP) PO SCH (10:20)
[2021-08-03] MEDS: ASPIRIN 81 MG CHEWABLE TABLETS PO SCH (10:20)
[2021-08-03] MEDS: THIAMINE HCL 100 MG TABLET (FP) PO SCH (22:16)
[2021-08-03] MEDS: TAMSULOSIN HCL 0.4 MG CAP PO SCH (22:16)
[2021-08-03] MEDS: MELATONIN 5 MG TABLETS PO SCH (22:16)
[2021-08-03] MEDS: ATORVASTATIN CA 80 MG TABLET (FP) PO SCH (22:17)
[2021-08-04] MEDS ORDERED: diazePAM 5 MG TABLET PO ONE (06:00)
[2021-08-04 06:46] VITALS: PULSE 55
[2021-08-04] MEDS: DOCUSATE SODIUM 100 MG CAPSULE (FP) PO SCH (06:59)
[2021-08-04 09:35] VITALS: BP 152/79; TEMP 97.1
[2021-08-04] MEDS: CARVEDILOL 3.125 MG TABLET (FP) PO SCH (10:20)
[2021-08-04] MEDS: NIFEdipine E.R 60 MG TABLET PO SCH (10:20)
[2021-08-04] MEDS: RANOLAZINE E.R. 500 MG TABLET (FP) PO SCH (10:20)
[2021-08-04] MEDS: CLOPIDOGREL BISULFATE 75 MG TABLET (FP) PO SCH (10:21)
[2021-08-04] MEDS: methaDONE HCL 40 MG DISPERSABLE TABLET PO SCH (10:21)
[2021-08-04] MEDS: NICOTINE 14 MG/24 HOURS TOPICAL PATCH TD SCH (10:21)
[2021-08-04] MEDS: busPIRone HCL 10 MG TABLET (FP) PO SCH (10:21)
[2021-08-04] MEDS: ASPIRIN 81 MG CHEWABLE TABLETS PO SCH (10:21)
[2021-08-04] MEDS: PRENATAL VITAMINS W/ FOLIC ACID TABLET (FP) PO SCH (10:22)
== END 2021-08-04 11:33 | disposition home or self-care (01) | DRG 773 ==
LOC: YASAS 18:25 → Y3N 20:31
PROVIDERS: ADMIT Allergy & Immunology; ATTEND Family Medicine Addiction Medicine
PROC: HZ2ZZZZ Detoxification Services for Substance Abuse Treatment (ICD-10-PCS; principal; 2021-07-31)
DX: F10.230 Alcohol dependence with withdrawal, uncomplicated (principal); F11.20 Opioid dependence, uncomplicated; F14.20 Cocaine dependence, uncomplicated; F13.20 Sedative, hypnotic or anxiolytic dependence, uncomplicated; F12.20 Cannabis dependence, uncomplicated; F17.210 Nicotine dependence, cigarettes, uncomplicated; F19.282 Other psychoactive substance dependence with psychoactive substance-induced sleep disorder; I25.119 Atherosclerotic heart disease of native coronary artery with unspecified angina pectoris; I10 Essential (primary) hypertension; Z95.1 Presence of aortocoronary bypass graft; Z95.5 Presence of coronary angioplasty implant and graft; E78.5 Hyperlipidemia, unspecified; N40.0 Benign prostatic hyperplasia without lower urinary tract symptoms; R63.8 Other symptoms and signs concerning food and fluid intake; R07.9 Chest pain, unspecified; Z88.8 Allergy status to other drugs, medicaments and biological substances; Z91.013 Allergy to seafood
CPT/HCPCS: 36415; 71045-TC-FY; 80053; 83735; 84100; 84484; 85025; 85027; 86593; 86780; 93005; 93010; 93306-TC; 99282-25; C9803-CS; G0378; U0003; U0005

== ENCOUNTER 2021-09-29 18:25 | Inpatient (IN) | payer OTHER ==
[2021-09-29 19:03] VITALS: BMI 29.2
[2021-09-29] MEDS ORDERED: BENZOCAINE/MENTHOL (CHLORASEPTIC ) LOZENGE MM PRN (19:59)
[2021-09-29] MEDS ORDERED: ACETAMINOPHEN 325 MG TABLET (FP) PO PRN ×2 (19:59)
[2021-09-29] MEDS ORDERED: guaiFENesin 200 MG/10 ML 10 ML UNIT-DOSE CUPS PO PRN (19:59)
[2021-09-29] MEDS ORDERED: DICYCLOMINE HCL 10 MG CAPSULE PO PRN (19:59)
[2021-09-29] MEDS ORDERED: LOPERAMIDE HCL 2 MG CAPSULE PO PRN (19:59)
[2021-09-29] MEDS ORDERED: P-EPHED 60MG/TRIPROLIDI 2.5MG TABLET PO PRN (19:59)
[2021-09-29] MEDS ORDERED: MAG HYDROX/AL HYDROX/SIMETH 30 ML UNIT-DOSE CUP PO PRN (19:59)
[2021-09-29] MEDS ORDERED: MAGNESIUM CITRATE 300 ML BOTTLE PO PRN (19:59)
[2021-09-29] MEDS ORDERED: CARVEDILOL 3.125 MG TABLET (FP) PO SCH (22:00)
[2021-09-29] MEDS: MELATONIN 5 MG TABLETS PO PRN (23:09)
[2021-09-29] MEDS: diazePAM 5 MG TABLET PO SCH (23:09)
[2021-09-29] MEDS: CARVEDILOL 6.25 MG TABLET (FP) PO SCH (23:11)
[2021-09-29] MEDS: TAMSULOSIN HCL 0.4 MG CAP PO SCH (23:12)
[2021-09-29] MEDS: ATORVASTATIN CA 80 MG TABLET (FP) PO SCH (23:13)
[2021-09-29] MEDS: THIAMINE HCL 100 MG TABLET (FP) PO SCH (23:13)
[2021-09-29] MEDS: RANOLAZINE E.R. 1,000 MG TABLET (FP) PO SCH (23:13)
[2021-09-30] MEDS: hydrOXYzine PAMOATE 25 MG CAPSULE (FP) PO PRN ×3 (01:33→22:35)
[2021-09-30] MEDS: diazePAM 5 MG TABLET PO PRN (01:34)
[2021-09-30] MEDS: diazePAM 5 MG TABLET PO SCH ×4 (07:26→22:35)
[2021-09-30] MEDS: ASPIRIN 81 MG CHEWABLE TABLETS PO SCH (11:28)
[2021-09-30] MEDS: NIFEdipine E.R 60 MG TABLET PO SCH (11:29)
[2021-09-30] MEDS: CLOPIDOGREL BISULFATE 75 MG TABLET (FP) PO SCH (11:29)
[2021-09-30] MEDS: PRENATAL VITAMINS W/ FOLIC ACID TABLET (FP) PO SCH (11:30)
[2021-09-30] MEDS: RANOLAZINE E.R. 1,000 MG TABLET (FP) PO SCH ×2 (11:31→22:34)
[2021-09-30] MEDS: CARVEDILOL 6.25 MG TABLET (FP) PO SCH (12:10)
[2021-09-30 12:13] LABS: HEMATOCRIT 30.5 % (35.4-49); HEMOGLOBIN 10.3 GM/dL (11.7-16.9); MCH 27.2 pg (25.7-33.7); MCHC 33.8 g/dl (32.0-35.9); MEAN CELL VOLUME 80.4 fl (80-96); MEAN PLT VOLUME 6.9 fl (7.5-11.1); PLATELET COUNT 178 10^3/uL (134-434); RBC 3.79 M/mm3 (4.00-5.60); RDW 15.2 % (11.9-15.9); WHITE BLOOD COUNT 5.6 K/mm3 (4.0-10.0)
[2021-09-30 12:17] LABS: CALCIUM 8.7 mg/dL (8.5-10.1)
[2021-09-30 12:18] LABS: BLOOD UREA NITROGEN 17.9 mg/dL (7-18)
[2021-09-30 12:21] LABS: CREATININE 1.2 mg/dL (0.55-1.3)
[2021-09-30 12:22] LABS: BILIRUBIN,TOTAL 0.4 mg/dL (0.2-1); TOT PROT 6.2 g/dl (6.4-8.2)
[2021-09-30] MEDS: CARVEDILOL 3.125 MG TABLET (FP) PO SCH ×2 (12:42→22:35)
[2021-09-30] MEDS: METHOCARBAMOL 500 MG TABLET PO PRN (18:07)
[2021-09-30] MEDS: THIAMINE HCL 100 MG TABLET (FP) PO SCH (22:34)
[2021-09-30] MEDS: TAMSULOSIN HCL 0.4 MG CAP PO SCH (22:34)
[2021-09-30] MEDS: ATORVASTATIN CA 80 MG TABLET (FP) PO SCH (22:34)
[2021-09-30] MEDS: MAGNESIUM HYDROX 2400MG/30ML ORAL SUSPENSION 30 ML CUP PO PRN (22:36)
[2021-10-01] MEDS: diazePAM 5 MG TABLET PO PRN ×3 (01:21→19:10)
[2021-10-01] MEDS: diazePAM 5 MG TABLET PO SCH ×3 (07:06→22:34)
[2021-10-01] MEDS ORDERED: methaDONE HCL 10 MG TABLET (FOR DETOX USE ONLY) PO ONE (10:00)
[2021-10-01] MEDS: PRENATAL VITAMINS W/ FOLIC ACID TABLET (FP) PO SCH (10:19)
[2021-10-01] MEDS: ASPIRIN 81 MG CHEWABLE TABLETS PO SCH (10:19)
[2021-10-01] MEDS: CLOPIDOGREL BISULFATE 75 MG TABLET (FP) PO SCH (10:19)
[2021-10-01] MEDS: NIFEdipine E.R 60 MG TABLET PO SCH (10:21)
[2021-10-01] MEDS: CARVEDILOL 3.125 MG TABLET (FP) PO SCH ×2 (10:22→22:34)
[2021-10-01] MEDS: RANOLAZINE E.R. 1,000 MG TABLET (FP) PO SCH ×2 (10:22→22:34)
[2021-10-01] MEDS: hydrOXYzine PAMOATE 25 MG CAPSULE (FP) PO PRN ×3 (10:23→22:35)
[2021-10-01] MEDS: MAGNESIUM HYDROX 2400MG/30ML ORAL SUSPENSION 30 ML CUP PO PRN (10:24)
[2021-10-01] MEDS: THIAMINE HCL 100 MG TABLET (FP) PO SCH (22:33)
[2021-10-01] MEDS: TAMSULOSIN HCL 0.4 MG CAP PO SCH (22:34)
[2021-10-01] MEDS: ATORVASTATIN CA 80 MG TABLET (FP) PO SCH (22:34)
[2021-10-02] MEDS: diazePAM 5 MG TABLET PO PRN ×3 (01:03→15:03)
[2021-10-02] MEDS: diazePAM 5 MG TABLET PO SCH ×2 (06:08→18:18)
[2021-10-02] MEDS: hydrOXYzine PAMOATE 25 MG CAPSULE (FP) PO PRN ×2 (06:09→22:28)
[2021-10-02] MEDS: MAGNESIUM HYDROX 2400MG/30ML ORAL SUSPENSION 30 ML CUP PO PRN (06:09)
[2021-10-02] MEDS: RANOLAZINE E.R. 1,000 MG TABLET (FP) PO SCH ×2 (09:58→22:27)
[2021-10-02] MEDS: NIFEdipine E.R 60 MG TABLET PO SCH (09:58)
[2021-10-02] MEDS: ASPIRIN 81 MG CHEWABLE TABLETS PO SCH (10:00)
[2021-10-02] MEDS: CLOPIDOGREL BISULFATE 75 MG TABLET (FP) PO SCH (10:00)
[2021-10-02] MEDS: CARVEDILOL 3.125 MG TABLET (FP) PO SCH ×2 (10:00→22:27)
[2021-10-02] MEDS: PRENATAL VITAMINS W/ FOLIC ACID TABLET (FP) PO SCH (10:02)
[2021-10-02] MEDS ORDERED: LACTULOSE 20 GM/30 ML UDC (FOR ORAL USE ONLY) PO ONE (11:08)
[2021-10-02] MEDS: TAMSULOSIN HCL 0.4 MG CAP PO SCH (22:26)
[2021-10-02] MEDS: THIAMINE HCL 100 MG TABLET (FP) PO SCH (22:26)
[2021-10-02] MEDS: ATORVASTATIN CA 80 MG TABLET (FP) PO SCH (22:26)
[2021-10-02] MEDS: METHOCARBAMOL 500 MG TABLET PO PRN (23:54)
[2021-10-03] MEDS: hydrOXYzine PAMOATE 25 MG CAPSULE (FP) PO PRN ×5 (01:41→22:25)
[2021-10-03] MEDS: MELATONIN 5 MG TABLETS PO PRN ×2 (01:42→22:24)
[2021-10-03] MEDS ORDERED: diazePAM 5 MG TABLET PO ONE (06:00)
[2021-10-03] MEDS ORDERED: methaDONE HCL 10 MG TABLET (FOR DETOX USE ONLY) PO ONE (10:00)
[2021-10-03] MEDS: CLOPIDOGREL BISULFATE 75 MG TABLET (FP) PO SCH (10:11)
[2021-10-03] MEDS: ASPIRIN 81 MG CHEWABLE TABLETS PO SCH (10:11)
[2021-10-03] MEDS: CARVEDILOL 3.125 MG TABLET (FP) PO SCH ×2 (10:12→22:25)
[2021-10-03] MEDS: NIFEdipine E.R 60 MG TABLET PO SCH (10:13)
[2021-10-03] MEDS: PRENATAL VITAMINS W/ FOLIC ACID TABLET (FP) PO SCH (10:13)
[2021-10-03] MEDS: RANOLAZINE E.R. 1,000 MG TABLET (FP) PO SCH ×2 (10:13→22:24)
[2021-10-03 21:07] VITALS: RESP 18
[2021-10-03] MEDS: TAMSULOSIN HCL 0.4 MG CAP PO SCH (22:24)
[2021-10-03] MEDS: THIAMINE HCL 100 MG TABLET (FP) PO SCH (22:24)
[2021-10-03] MEDS: ATORVASTATIN CA 80 MG TABLET (FP) PO SCH (22:24)
[2021-10-04] MEDS: hydrOXYzine PAMOATE 25 MG CAPSULE (FP) PO PRN (01:19)
[2021-10-04] MEDS: METHOCARBAMOL 500 MG TABLET PO PRN (01:21)
[2021-10-04 09:30] VITALS: TEMP 98
[2021-10-04] MEDS ORDERED: RANOLAZINE E.R. 500 MG TABLET (FP) PO SCH (10:00)
[2021-10-04] MEDS: ASPIRIN 81 MG CHEWABLE TABLETS PO SCH (10:27)
[2021-10-04] MEDS: CLOPIDOGREL BISULFATE 75 MG TABLET (FP) PO SCH (10:27)
[2021-10-04] MEDS: NIFEdipine E.R 60 MG TABLET PO SCH (10:27)
[2021-10-04] MEDS: CARVEDILOL 3.125 MG TABLET (FP) PO SCH (10:27)
[2021-10-04 10:28] VITALS: BP 157/83; PULSE 95
[2021-10-04] MEDS: PRENATAL VITAMINS W/ FOLIC ACID TABLET (FP) PO SCH (10:28)
== END 2021-10-04 10:42 | disposition home or self-care (01) | DRG 773 ==
LOC: YASAS 18:25 → Y3N 21:18
PROVIDERS: ADMIT Allergy & Immunology; ATTEND Surgery
PROC: HZ2ZZZZ Detoxification Services for Substance Abuse Treatment (ICD-10-PCS; principal; 2021-09-29)
DX: F11.23 Opioid dependence with withdrawal (principal); F12.20 Cannabis dependence, uncomplicated; I10 Essential (primary) hypertension; I25.10 Atherosclerotic heart disease of native coronary artery without angina pectoris; N40.0 Benign prostatic hyperplasia without lower urinary tract symptoms; E78.5 Hyperlipidemia, unspecified; K59.00 Constipation, unspecified; Z87.891 Personal history of nicotine dependence; Z86.19 Personal history of other infectious and parasitic diseases
CPT/HCPCS: 36415; 80053; 85027; 86593; 86780; C9803-CS; U0003; U0005

== ENCOUNTER 2021-11-14 12:12 | Inpatient (IN) | payer OTHER ==
[2021-11-14 13:41] VITALS: BMI 29.0
[2021-11-14] MEDS ORDERED: MELATONIN 5 MG TABLETS PO PRN (16:53)
[2021-11-14] MEDS ORDERED: ONDANSETRON *ODT* 4 MG TABLET SL PRN (16:53)
[2021-11-14] MEDS ORDERED: DICYCLOMINE HCL 10 MG CAPSULE PO PRN (16:53)
[2021-11-14] MEDS ORDERED: MAG HYDROX/AL HYDROX/SIMETH 30 ML UNIT-DOSE CUP PO PRN (16:53)
[2021-11-14] MEDS ORDERED: NALOXONE HCL (KLOXXADO) 8 MG SPRAY NS PRN (16:53)
[2021-11-14] MEDS ORDERED: BENZOCAINE/MENTHOL (CHLORASEPTIC ) LOZENGE MM PRN (16:53)
[2021-11-14] MEDS ORDERED: guaiFENesin 200 MG/10 ML 10 ML UNIT-DOSE CUPS PO PRN (16:53)
[2021-11-14] MEDS ORDERED: LOPERAMIDE HCL 2 MG CAPSULE PO PRN (16:53)
[2021-11-14] MEDS ORDERED: P-EPHED 60MG/TRIPROLIDI 2.5MG TABLET PO PRN (16:53)
[2021-11-14] MEDS ORDERED: MAGNESIUM CITRATE 300 ML BOTTLE PO PRN (16:53)
[2021-11-14] MEDS ORDERED: ACETAMINOPHEN 325 MG TABLET (FP) PO PRN (16:53)
[2021-11-14] MEDS ORDERED: cloNIDine HCL 0.1 MG TABLET PO PRN (16:57)
[2021-11-14] MEDS ORDERED: methaDONE HCL 10 MG TABLET (FOR DETOX USE ONLY) PO ONE (16:57)
[2021-11-14] MEDS ORDERED: BISACODYL 5 MG TABLET.DR (FP) PO PRN (16:59)
[2021-11-14] MEDS: diazePAM 5 MG TABLET PO PRN ×2 (18:52→22:24)
[2021-11-14] MEDS ORDERED: RANOLAZINE E.R. 500 MG TABLET (FP) PO SCH (22:00)
[2021-11-14] MEDS: THIAMINE HCL 100 MG TABLET (FP) PO SCH (22:06)
[2021-11-14] MEDS: TAMSULOSIN HCL 0.4 MG CAP PO SCH (22:06)
[2021-11-14] MEDS: ATORVASTATIN CA 80 MG TABLET (FP) PO SCH (22:06)
[2021-11-14] MEDS: CARVEDILOL 3.125 MG TABLET (FP) PO SCH (22:08)
[2021-11-15] MEDS: PRENATAL VITAMINS W/ FOLIC ACID TABLET (FP) PO SCH (10:37)
[2021-11-15] MEDS: METHOCARBAMOL 500 MG TABLET PO PRN (10:37)
[2021-11-15] MEDS: ASPIRIN 81 MG CHEWABLE TABLETS PO SCH (10:37)
[2021-11-15] MEDS: diazePAM 5 MG TABLET PO PRN ×3 (10:37→22:25)
[2021-11-15] MEDS: hydrOXYzine PAMOATE 25 MG CAPSULE (FP) PO PRN ×2 (10:37→17:52)
[2021-11-15] MEDS: NIFEdipine E.R. 30 MG TABLET PO SCH (10:37)
[2021-11-15] MEDS: CLOPIDOGREL BISULFATE 75 MG TABLET (FP) PO SCH (10:37)
[2021-11-15] MEDS: RANOLAZINE E.R. 1,000 MG TABLET (FP) PO SCH ×2 (10:39→22:26)
[2021-11-15] MEDS: CARVEDILOL 3.125 MG TABLET (FP) PO SCH ×2 (10:39→22:26)
[2021-11-15 12:51] LABS: HEMATOCRIT 32.3 % (35.4-49); HEMOGLOBIN 10.7 GM/dL (11.7-16.9); MCH 27.1 pg (25.7-33.7); MCHC 33.1 g/dl (32.0-35.9); MEAN CELL VOLUME 81.9 fl (80-96); MEAN PLT VOLUME 7.3 fl (7.5-11.1); PLATELET COUNT 240 10^3/uL (134-434); RBC 3.95 M/mm3 (4.00-5.60); RDW 15.2 % (11.9-15.9); WHITE BLOOD COUNT 4.8 K/mm3 (4.0-10.0)
[2021-11-15 12:56] LABS: ALBUMIN 3.2 g/dl (3.4-5.0); CALCIUM 8.9 mg/dL (8.5-10.1)
[2021-11-15 12:57] LABS: BLOOD UREA NITROGEN 10.7 mg/dL (7-18)
[2021-11-15 12:59] LABS: CREATININE 0.9 mg/dL (0.55-1.3)
[2021-11-15 13:01] LABS: BILIRUBIN,TOTAL 0.2 mg/dL (0.2-1); TOT PROT 6.3 g/dl (6.4-8.2)
[2021-11-15] MEDS: MAGNESIUM HYDROX 2400MG/30ML ORAL SUSPENSION 30 ML CUP PO PRN (15:00)
[2021-11-15] MEDS ORDERED: LACTULOSE 20 GM/30 ML UDC (FOR ORAL USE ONLY) PO ONE (20:34)
[2021-11-15] MEDS: THIAMINE HCL 100 MG TABLET (FP) PO SCH (22:26)
[2021-11-15] MEDS: TAMSULOSIN HCL 0.4 MG CAP PO SCH (22:26)
[2021-11-15] MEDS: ATORVASTATIN CA 80 MG TABLET (FP) PO SCH (22:26)
[2021-11-16] MEDS: diazePAM 5 MG TABLET PO PRN ×4 (02:05→22:23)
[2021-11-16] MEDS: MAGNESIUM HYDROX 2400MG/30ML ORAL SUSPENSION 30 ML CUP PO PRN (07:35)
[2021-11-16] MEDS ORDERED: methaDONE HCL 10 MG TABLET (FOR DETOX USE ONLY) PO ONE (10:00)
[2021-11-16] MEDS ORDERED: LACTULOSE 20 GM/30 ML UDC (FOR ORAL USE ONLY) PO ONE (10:05)
[2021-11-16] MEDS: PRENATAL VITAMINS W/ FOLIC ACID TABLET (FP) PO SCH (10:51)
[2021-11-16] MEDS: NIFEdipine E.R. 30 MG TABLET PO SCH (10:52)
[2021-11-16] MEDS: CARVEDILOL 3.125 MG TABLET (FP) PO SCH ×2 (10:52→22:18)
[2021-11-16] MEDS: ASPIRIN 81 MG CHEWABLE TABLETS PO SCH (10:53)
[2021-11-16] MEDS: RANOLAZINE E.R. 1,000 MG TABLET (FP) PO SCH ×2 (10:53→23:27)
[2021-11-16] MEDS: CLOPIDOGREL BISULFATE 75 MG TABLET (FP) PO SCH (10:53)
[2021-11-16] MEDS: hydrOXYzine PAMOATE 25 MG CAPSULE (FP) PO PRN ×3 (15:12→22:23)
[2021-11-16] MEDS: ACETAMINOPHEN 325 MG TABLET (FP) PO PRN (19:29)
[2021-11-16] MEDS: busPIRone HCL 5 MG TABLET PO SCH (22:17)
[2021-11-16] MEDS: ATORVASTATIN CA 80 MG TABLET (FP) PO SCH (22:17)
[2021-11-16] MEDS: TAMSULOSIN HCL 0.4 MG CAP PO SCH (22:18)
[2021-11-16] MEDS: THIAMINE HCL 100 MG TABLET (FP) PO SCH (22:18)
[2021-11-16] MEDS: METHOCARBAMOL 500 MG TABLET PO PRN (22:21)
[2021-11-17] MEDS: diazePAM 5 MG TABLET PO PRN ×3 (02:26→15:25)
[2021-11-17] MEDS: hydrOXYzine PAMOATE 25 MG CAPSULE (FP) PO PRN ×3 (02:26→22:26)
[2021-11-17] MEDS: busPIRone HCL 5 MG TABLET PO SCH ×3 (06:50→22:26)
[2021-11-17] MEDS: NIFEdipine E.R. 30 MG TABLET PO SCH (10:30)
[2021-11-17] MEDS: ASPIRIN 81 MG CHEWABLE TABLETS PO SCH (10:31)
[2021-11-17] MEDS: CARVEDILOL 3.125 MG TABLET (FP) PO SCH ×2 (10:31→22:26)
[2021-11-17] MEDS: CLOPIDOGREL BISULFATE 75 MG TABLET (FP) PO SCH (10:31)
[2021-11-17] MEDS: PRENATAL VITAMINS W/ FOLIC ACID TABLET (FP) PO SCH (10:32)
[2021-11-17] MEDS: RANOLAZINE E.R. 1,000 MG TABLET (FP) PO SCH ×2 (10:32→22:28)
[2021-11-17] MEDS: METHOCARBAMOL 500 MG TABLET PO PRN ×2 (10:35→22:28)
[2021-11-17] MEDS: TAMSULOSIN HCL 0.4 MG CAP PO SCH (22:26)
[2021-11-17] MEDS: THIAMINE HCL 100 MG TABLET (FP) PO SCH (22:27)
[2021-11-17] MEDS: ACETAMINOPHEN 325 MG TABLET (FP) PO PRN (22:27)
[2021-11-17] MEDS: ATORVASTATIN CA 80 MG TABLET (FP) PO SCH (22:27)
[2021-11-18] MEDS: busPIRone HCL 5 MG TABLET PO SCH ×3 (06:11→22:37)
[2021-11-18 06:23] VITALS: RESP 18
[2021-11-18] MEDS ORDERED: methaDONE HCL 10 MG TABLET (FOR DETOX USE ONLY) PO ONE (10:00)
[2021-11-18] MEDS: hydrOXYzine PAMOATE 25 MG CAPSULE (FP) PO PRN ×2 (10:46→22:37)
[2021-11-18] MEDS: CLOPIDOGREL BISULFATE 75 MG TABLET (FP) PO SCH (10:46)
[2021-11-18] MEDS: PRENATAL VITAMINS W/ FOLIC ACID TABLET (FP) PO SCH (10:46)
[2021-11-18] MEDS: METHOCARBAMOL 500 MG TABLET PO PRN (10:46)
[2021-11-18] MEDS: NIFEdipine E.R. 30 MG TABLET PO SCH (10:46)
[2021-11-18] MEDS: ASPIRIN 81 MG CHEWABLE TABLETS PO SCH (10:46)
[2021-11-18] MEDS: RANOLAZINE E.R. 1,000 MG TABLET (FP) PO SCH ×2 (10:46→22:36)
[2021-11-18] MEDS: CARVEDILOL 3.125 MG TABLET (FP) PO SCH ×2 (10:46→22:36)
[2021-11-18] MEDS: ACETAMINOPHEN 325 MG TABLET (FP) PO PRN (19:36)
[2021-11-18] MEDS: TAMSULOSIN HCL 0.4 MG CAP PO SCH (22:36)
[2021-11-18] MEDS: ATORVASTATIN CA 80 MG TABLET (FP) PO SCH (22:36)
[2021-11-18] MEDS: THIAMINE HCL 100 MG TABLET (FP) PO SCH (22:36)
[2021-11-19] MEDS: ACETAMINOPHEN 325 MG TABLET (FP) PO PRN (03:01)
[2021-11-19] MEDS: METHOCARBAMOL 500 MG TABLET PO PRN (03:01)
[2021-11-19] MEDS: hydrOXYzine PAMOATE 25 MG CAPSULE (FP) PO PRN (03:01)
[2021-11-19] MEDS: busPIRone HCL 5 MG TABLET PO SCH (06:38)
[2021-11-19 09:11] VITALS: BP 115/64; PULSE 61; TEMP 98.6
[2021-11-19] MEDS: RANOLAZINE E.R. 1,000 MG TABLET (FP) PO SCH (10:01)
[2021-11-19] MEDS: ASPIRIN 81 MG CHEWABLE TABLETS PO SCH (10:02)
[2021-11-19] MEDS: NIFEdipine E.R. 30 MG TABLET PO SCH (10:02)
[2021-11-19] MEDS: CLOPIDOGREL BISULFATE 75 MG TABLET (FP) PO SCH (10:02)
[2021-11-19] MEDS: PRENATAL VITAMINS W/ FOLIC ACID TABLET (FP) PO SCH (10:02)
[2021-11-19] MEDS: CARVEDILOL 3.125 MG TABLET (FP) PO SCH (10:02)
== END 2021-11-19 10:31 | disposition home or self-care (01) | DRG 773 ==
LOC: YASAS 12:12 → Y3N 17:25
PROVIDERS: ADMIT Allergy & Immunology; ATTEND Surgery
PROC: HZ2ZZZZ Detoxification Services for Substance Abuse Treatment (ICD-10-PCS; principal; 2021-11-14)
DX: F11.23 Opioid dependence with withdrawal (principal); F41.9 Anxiety disorder, unspecified; I25.10 Atherosclerotic heart disease of native coronary artery without angina pectoris; I10 Essential (primary) hypertension; Z95.1 Presence of aortocoronary bypass graft; Z95.5 Presence of coronary angioplasty implant and graft; D64.9 Anemia, unspecified; R73.9 Hyperglycemia, unspecified; N40.0 Benign prostatic hyperplasia without lower urinary tract symptoms; Z86.19 Personal history of other infectious and parasitic diseases; Z87.891 Personal history of nicotine dependence; Z88.8 Allergy status to other drugs, medicaments and biological substances
CPT/HCPCS: 36415; 80053; 85027; 86593; 86780; C9803-CS; U0003; U0005

== ENCOUNTER 2021-12-26 22:12 | Inpatient (IN) | payer OTHER ==
[2021-12-26 23:04] VITALS: BMI 29.0
[2021-12-26] MEDS ORDERED: guaiFENesin 200 MG/10 ML 10 ML UNIT-DOSE CUPS PO PRN (23:27)
[2021-12-26] MEDS ORDERED: ACETAMINOPHEN 325 MG TABLET (FP) PO PRN (23:27)
[2021-12-26] MEDS ORDERED: ONDANSETRON *ODT* 4 MG TABLET SL PRN (23:27)
[2021-12-26] MEDS ORDERED: MAGNESIUM CITRATE 300 ML BOTTLE PO PRN (23:27)
[2021-12-26] MEDS ORDERED: NALOXONE HCL (KLOXXADO) 8 MG SPRAY NS PRN (23:27)
[2021-12-26] MEDS ORDERED: hydrOXYzine PAMOATE 25 MG CAPSULE (FP) PO PRN (23:27)
[2021-12-26] MEDS ORDERED: BENZOCAINE/MENTHOL (CHLORASEPTIC ) LOZENGE MM PRN (23:27)
[2021-12-26] MEDS ORDERED: MAG HYDROX/AL HYDROX/SIMETH 30 ML UNIT-DOSE CUP PO PRN (23:27)
[2021-12-26] MEDS ORDERED: DICYCLOMINE HCL 10 MG CAPSULE PO PRN (23:27)
[2021-12-26] MEDS ORDERED: P-EPHED 60MG/TRIPROLIDI 2.5MG TABLET PO PRN (23:27)
[2021-12-26] MEDS ORDERED: LOPERAMIDE HCL 2 MG CAPSULE PO PRN (23:27)
[2021-12-27] MEDS ORDERED: methaDONE HCL 10 MG TABLET (FOR DETOX USE ONLY) PO ONE (00:30)
[2021-12-27] MEDS: TAMSULOSIN HCL 0.4 MG CAP PO SCH ×2 (00:47→22:49)
[2021-12-27] MEDS: diazePAM 5 MG TABLET PO PRN ×4 (00:49→22:18)
[2021-12-27] MEDS: METHOCARBAMOL 500 MG TABLET PO PRN (01:04)
[2021-12-27] MEDS: ACETAMINOPHEN 325 MG TABLET (FP) PO PRN (02:27)
[2021-12-27] MEDS ORDERED: NIFEdipine E.R. 30 MG TABLET PO SCH (10:00)
[2021-12-27] MEDS ORDERED: RANOLAZINE E.R. 500 MG TABLET (FP) PO SCH ×2 (10:00)
[2021-12-27] MEDS ORDERED: CARVEDILOL 3.125 MG TABLET (FP) PO SCH (10:00)
[2021-12-27] MEDS: PRENATAL VITAMINS W/ FOLIC ACID TABLET (FP) PO SCH (10:23)
[2021-12-27] MEDS: CLOPIDOGREL BISULFATE 75 MG TABLET (FP) PO SCH (10:24)
[2021-12-27] MEDS: ASPIRIN 81 MG CHEWABLE TABLETS PO SCH (10:24)
[2021-12-27] MEDS: NIFEdipine E.R 60 MG TABLET PO SCH (11:16)
[2021-12-27] MEDS: RANOLAZINE E.R. 500 MG TABLET (FP) PO SCH ×2 (11:16→22:49)
[2021-12-27] MEDS: CARVEDILOL 6.25 MG TABLET (FP) PO SCH ×2 (11:16→22:49)
[2021-12-27] MEDS: MAGNESIUM HYDROX 2400MG/30ML ORAL SUSPENSION 30 ML CUP PO PRN ×2 (11:34→21:17)
[2021-12-27 13:24] LABS: HEMOGLOBIN 10.1 GM/dL (11.7-16.9); MCH 27.7 pg (25.7-33.7); MCHC 33.8 g/dl (32.0-35.9); MEAN CELL VOLUME 81.8 fl (80-96); PLATELET COUNT 186 10^3/uL (134-434); RBC 3.66 M/mm3 (4.00-5.60); RDW 14.5 % (11.9-15.9); WHITE BLOOD COUNT 7.5 K/mm3 (4.0-10.0)
[2021-12-27 13:36] LABS: ALBUMIN 3.6 g/dl (3.4-5.0); CALCIUM 9.4 mg/dL (8.5-10.1)
[2021-12-27 13:37] LABS: BLOOD UREA NITROGEN 31.2 mg/dL (7-18)
[2021-12-27 13:38] LABS: CREATININE 1.2 mg/dL (0.55-1.3)
[2021-12-27 13:40] LABS: BILIRUBIN,TOTAL 0.4 mg/dL (0.2-1); TOT PROT 6.5 g/dl (6.4-8.2)
[2021-12-27] MEDS ORDERED: diphenhydrAMINE HCL 25 MG CAPSULE (FP) PO ONE (15:30)
[2021-12-27] MEDS ORDERED: DOCUSATE SODIUM 100 MG CAPSULE (FP) PO ONE (15:30)
[2021-12-27] MEDS ORDERED: COLLOIDAL OATMEAL 1 BAR EACH TP PRN (16:33)
[2021-12-27] MEDS: diphenhydrAMINE HCL 25 MG CAPSULE (FP) PO PRN (18:45)
[2021-12-27] MEDS: SENNOSIDES 8.6MG TABLET (FP) PO SCH (22:49)
[2021-12-27] MEDS: ATORVASTATIN CA 80 MG TABLET (FP) PO SCH (22:50)
[2021-12-27] MEDS: DOCUSATE SODIUM 100 MG CAPSULE (FP) PO SCH (22:50)
[2021-12-27] MEDS: THIAMINE HCL 100 MG TABLET (FP) PO SCH (22:50)
[2021-12-28] MEDS: MELATONIN 5 MG TABLETS PO PRN (00:35)
[2021-12-28] MEDS: METHOCARBAMOL 500 MG TABLET PO PRN ×2 (00:35→18:24)
[2021-12-28] MEDS: diazePAM 5 MG TABLET PO PRN ×2 (04:45→23:48)
[2021-12-28] MEDS: DOCUSATE SODIUM 100 MG CAPSULE (FP) PO SCH ×3 (05:00→22:15)
[2021-12-28] MEDS ORDERED: methaDONE HCL 10 MG TABLET (FOR DETOX USE ONLY) PO ONE (10:00)
[2021-12-28] MEDS: ASPIRIN 81 MG CHEWABLE TABLETS PO SCH (10:52)
[2021-12-28] MEDS: CARVEDILOL 6.25 MG TABLET (FP) PO SCH ×2 (10:52→22:15)
[2021-12-28] MEDS: FLUTICASONE PROP 0.05% 16 GM NASAL SPRAY NS SCH ×2 (10:52→22:15)
[2021-12-28] MEDS: LIDOCAINE 5% TOPICAL PATCH TP SCH (10:52)
[2021-12-28] MEDS: CLOPIDOGREL BISULFATE 75 MG TABLET (FP) PO SCH (10:52)
[2021-12-28] MEDS: HYDROCORTISONE 1% TOPICAL CREAM 30 GM TUBE TP SCH ×2 (10:53→22:16)
[2021-12-28] MEDS: RANOLAZINE E.R. 500 MG TABLET (FP) PO SCH ×2 (10:54→22:17)
[2021-12-28] MEDS: PRENATAL VITAMINS W/ FOLIC ACID TABLET (FP) PO SCH (10:55)
[2021-12-28] MEDS: NIFEdipine E.R 60 MG TABLET PO SCH (10:55)
[2021-12-28 11:14] LABS: HEMATOCRIT 29.2 % (35.4-49); HEMOGLOBIN 9.8 GM/dL (11.7-16.9); MCH 27.4 pg (25.7-33.7); MCHC 33.6 g/dl (32.0-35.9); MEAN CELL VOLUME 81.7 fl (80-96); MEAN PLT VOLUME 7.1 fl (7.5-11.1); PLATELET COUNT 181 10^3/uL (134-434); RBC 3.57 M/mm3 (4.00-5.60); RDW 14.5 % (11.9-15.9); WHITE BLOOD COUNT 5.5 K/mm3 (4.0-10.0)
[2021-12-28 11:20] LABS: CALCIUM 8.7 mg/dL (8.5-10.1)
[2021-12-28 11:21] LABS: ALBUMIN 3.2 g/dl (3.4-5.0)
[2021-12-28 11:24] LABS: BILIRUBIN,TOTAL 0.4 mg/dL (0.2-1); CREATININE 0.9 mg/dL (0.55-1.3); TOT PROT 6.1 g/dl (6.4-8.2)
[2021-12-28] MEDS ORDERED: LACTULOSE 20 GM/30 ML UDC (FOR ORAL USE ONLY) PO PRN (15:00)
[2021-12-28] MEDS: diphenhydrAMINE HCL 25 MG CAPSULE (FP) PO PRN (18:24)
[2021-12-28] MEDS: MAGNESIUM HYDROX 2400MG/30ML ORAL SUSPENSION 30 ML CUP PO PRN (18:27)
[2021-12-28] MEDS ORDERED: LIDOCAINE PATCH REMOVAL MC SCH (22:00)
[2021-12-28] MEDS: THIAMINE HCL 100 MG TABLET (FP) PO SCH (22:14)
[2021-12-28] MEDS: ATORVASTATIN CA 80 MG TABLET (FP) PO SCH (22:14)
[2021-12-28] MEDS: TAMSULOSIN HCL 0.4 MG CAP PO SCH (22:15)
[2021-12-28] MEDS: SENNOSIDES 8.6MG TABLET (FP) PO SCH (22:15)
[2021-12-29] MEDS: DOCUSATE SODIUM 100 MG CAPSULE (FP) PO SCH ×3 (06:11→22:29)
[2021-12-29] MEDS: PRENATAL VITAMINS W/ FOLIC ACID TABLET (FP) PO SCH (10:15)
[2021-12-29] MEDS: FLUTICASONE PROP 0.05% 16 GM NASAL SPRAY NS SCH ×2 (10:15→22:37)
[2021-12-29] MEDS: ASPIRIN 81 MG CHEWABLE TABLETS PO SCH (10:16)
[2021-12-29] MEDS: NIFEdipine E.R 60 MG TABLET PO SCH (10:16)
[2021-12-29] MEDS: CLOPIDOGREL BISULFATE 75 MG TABLET (FP) PO SCH (10:16)
[2021-12-29] MEDS: CARVEDILOL 6.25 MG TABLET (FP) PO SCH ×2 (10:16→22:29)
[2021-12-29] MEDS: RANOLAZINE E.R. 500 MG TABLET (FP) PO SCH ×2 (10:17→22:33)
[2021-12-29] MEDS: HYDROCORTISONE 1% TOPICAL CREAM 30 GM TUBE TP SCH ×2 (10:17→22:31)
[2021-12-29] MEDS: LIDOCAINE 5% TOPICAL PATCH TP SCH (10:18)
[2021-12-29 11:58] LABS: HEMATOCRIT 30.6 % (35.4-49); HEMOGLOBIN 10.1 GM/dL (11.7-16.9); MCH 26.9 pg (25.7-33.7); MEAN CELL VOLUME 81.6 fl (80-96); MEAN PLT VOLUME 7.3 fl (7.5-11.1); PLATELET COUNT 183 10^3/uL (134-434); RBC 3.75 M/mm3 (4.00-5.60); RDW 14.8 % (11.9-15.9); WHITE BLOOD COUNT 6.1 K/mm3 (4.0-10.0)
[2021-12-29] MEDS: ACETAMINOPHEN 325 MG TABLET (FP) PO PRN ×2 (13:33→21:34)
[2021-12-29] MEDS: METHOCARBAMOL 500 MG TABLET PO PRN (13:33)
[2021-12-29] MEDS: diazePAM 5 MG TABLET PO PRN ×2 (13:36→22:32)
[2021-12-29] MEDS ORDERED: METHYL SALICYLATE/MENTHOL OINT 30 GM TUBE TP ONE (14:00)
[2021-12-29] MEDS ORDERED: METHYL SALICYLATE/MENTHOL OINT 30 GM TUBE TP SCH (22:00)
[2021-12-29] MEDS: MELATONIN 5 MG TABLETS PO PRN (22:29)
[2021-12-29] MEDS: SENNOSIDES 8.6MG TABLET (FP) PO SCH (22:29)
[2021-12-29] MEDS: ATORVASTATIN CA 80 MG TABLET (FP) PO SCH (22:29)
[2021-12-29] MEDS: TAMSULOSIN HCL 0.4 MG CAP PO SCH (22:29)
[2021-12-29] MEDS: THIAMINE HCL 100 MG TABLET (FP) PO SCH (22:29)
[2021-12-29] MEDS: METHYL SALICYLATE/MENTHOL OINT 30 GM TUBE TP SCH (22:30)
[2021-12-30] MEDS: DOCUSATE SODIUM 100 MG CAPSULE (FP) PO SCH ×3 (05:40→22:40)
[2021-12-30] MEDS: diazePAM 5 MG TABLET PO PRN ×4 (05:41→22:42)
[2021-12-30] MEDS ORDERED: methaDONE HCL 10 MG TABLET (FOR DETOX USE ONLY) PO ONE (10:00)
[2021-12-30] MEDS: PRENATAL VITAMINS W/ FOLIC ACID TABLET (FP) PO SCH (10:57)
[2021-12-30] MEDS: CLOPIDOGREL BISULFATE 75 MG TABLET (FP) PO SCH (10:58)
[2021-12-30] MEDS: RANOLAZINE E.R. 500 MG TABLET (FP) PO SCH ×2 (10:58→22:40)
[2021-12-30] MEDS: ASPIRIN 81 MG CHEWABLE TABLETS PO SCH (10:58)
[2021-12-30] MEDS: CARVEDILOL 6.25 MG TABLET (FP) PO SCH ×2 (10:58→22:40)
[2021-12-30] MEDS: NIFEdipine E.R 60 MG TABLET PO SCH (10:58)
[2021-12-30] MEDS: FLUTICASONE PROP 0.05% 16 GM NASAL SPRAY NS SCH ×2 (10:58→23:04)
[2021-12-30] MEDS: HYDROCORTISONE 1% TOPICAL CREAM 30 GM TUBE TP SCH ×2 (10:59→23:04)
[2021-12-30] MEDS: METHYL SALICYLATE/MENTHOL OINT 30 GM TUBE TP SCH ×2 (10:59→23:03)
[2021-12-30] MEDS: SENNOSIDES 8.6MG TABLET (FP) PO SCH (22:39)
[2021-12-30] MEDS: THIAMINE HCL 100 MG TABLET (FP) PO SCH (22:40)
[2021-12-30] MEDS: ATORVASTATIN CA 80 MG TABLET (FP) PO SCH (22:40)
[2021-12-30] MEDS: TAMSULOSIN HCL 0.4 MG CAP PO SCH (23:04)
[2021-12-31] MEDS: METHOCARBAMOL 500 MG TABLET PO PRN (02:16)
[2021-12-31] MEDS: ACETAMINOPHEN 325 MG TABLET (FP) PO PRN (02:16)
[2021-12-31] MEDS: diphenhydrAMINE HCL 25 MG CAPSULE (FP) PO PRN (04:11)
[2021-12-31] MEDS: DOCUSATE SODIUM 100 MG CAPSULE (FP) PO SCH ×2 (06:02→13:18)
[2021-12-31] MEDS: ASPIRIN 81 MG CHEWABLE TABLETS PO SCH (10:16)
[2021-12-31] MEDS: CLOPIDOGREL BISULFATE 75 MG TABLET (FP) PO SCH (10:16)
[2021-12-31] MEDS: PRENATAL VITAMINS W/ FOLIC ACID TABLET (FP) PO SCH (10:16)
[2021-12-31] MEDS: METHYL SALICYLATE/MENTHOL OINT 30 GM TUBE TP SCH (10:16)
[2021-12-31] MEDS: FLUTICASONE PROP 0.05% 16 GM NASAL SPRAY NS SCH (10:16)
[2021-12-31] MEDS: CARVEDILOL 6.25 MG TABLET (FP) PO SCH (10:16)
[2021-12-31] MEDS: HYDROCORTISONE 1% TOPICAL CREAM 30 GM TUBE TP SCH (10:16)
[2021-12-31] MEDS: NIFEdipine E.R 60 MG TABLET PO SCH (10:17)
[2021-12-31] MEDS: RANOLAZINE E.R. 500 MG TABLET (FP) PO SCH (10:17)
[2021-12-31 16:59] VITALS: BP 132/59; PULSE 61; RESP 18; TEMP 97.1
== END 2021-12-31 16:10 | disposition other institution (70) | DRG 773 ==
LOC: YASAS 22:12 → Y6N 23:33
PROVIDERS: ADMIT Allergy & Immunology; ATTEND Surgery
PROC: HZ2ZZZZ Detoxification Services for Substance Abuse Treatment (ICD-10-PCS; principal; 2021-12-26)
DX: F11.23 Opioid dependence with withdrawal (principal); F14.10 Cocaine abuse, uncomplicated; F12.10 Cannabis abuse, uncomplicated; F17.210 Nicotine dependence, cigarettes, uncomplicated; I25.10 Atherosclerotic heart disease of native coronary artery without angina pectoris; I10 Essential (primary) hypertension; Z95.1 Presence of aortocoronary bypass graft; Z95.5 Presence of coronary angioplasty implant and graft; E78.00 Pure hypercholesterolemia, unspecified; K59.01 Slow transit constipation; N40.0 Benign prostatic hyperplasia without lower urinary tract symptoms; R73.9 Hyperglycemia, unspecified; Z88.8 Allergy status to other drugs, medicaments and biological substances; Z91.013 Allergy to seafood
CPT/HCPCS: 36415; 80053; 85027; 86593; 86780; 93005; 93010; C9803-CS; U0003; U0005

== ENCOUNTER 2021-12-31 17:47 | Inpatient (IN) | payer OTHER ==
[~2021-12-31 17:47] MED LIST: IBUPROFEN 400 MG TABLET (FP) PO PRN; LACTULOSE 20 GM/30 ML UDC (FOR ORAL USE ONLY) PO PRN; LOPERAMIDE HCL 2 MG CAPSULE PO PRN; MAG HYDROX/AL HYDROX/SIMETH 30 ML UNIT-DOSE CUP PO PRN; MAGNESIUM CITRATE 300 ML BOTTLE PO PRN; MAGNESIUM HYDROX 2400MG/30ML ORAL SUSPENSION 30 ML CUP PO PRN; NICOTINE 10 MG CARTRIDGE (INHALER) IH PRN; NICOTINE 7 MG/24 HOURS TOPICAL PATCH TD PRN; NICOTINE POLACRILEX 2 MG GUM BC PRN; guaiFENesin 200 MG/10 ML 10 ML UNIT-DOSE CUPS PO PRN
[2021-12-31] MEDS: DOCUSATE SODIUM 100 MG CAPSULE (FP) PO SCH ×2 (17:57→21:59)
[2021-12-31 18:22] VITALS: RESP 18
[2021-12-31] MEDS: ACETAMINOPHEN 325 MG TABLET (FP) PO PRN (20:08)
[2021-12-31] MEDS: CARVEDILOL 6.25 MG TABLET (FP) PO SCH (21:41)
[2021-12-31] MEDS: RANOLAZINE E.R. 1,000 MG TABLET (FP) PO SCH (21:41)
[2021-12-31] MEDS ORDERED: ATORVASTATIN CA 40 MG TABLET (FP) ONE (21:55)
[2021-12-31] MEDS ORDERED: THIAMINE HCL 100 MG TABLET (FP) PO SCH (22:00)
[2021-12-31] MEDS ORDERED: ATORVASTATIN CA 80 MG TABLET (FP) PO SCH (22:00)
[2021-12-31] MEDS ORDERED: TAMSULOSIN HCL 0.4 MG CAP PO SCH (22:00)
[2021-12-31] MEDS ORDERED: SENNOSIDES 8.6MG TABLET (FP) PO SCH (22:00)
[2021-12-31] MEDS ORDERED: MELATONIN 5 MG TABLETS PO SCH (22:00)
[2021-12-31] MEDS: HYDROCORTISONE 1% TOPICAL CREAM 30 GM TUBE TP SCH (22:02)
[2022-01-01] MEDS: ACETAMINOPHEN 325 MG TABLET (FP) PO PRN ×2 (02:12→13:06)
[2022-01-01] MEDS: hydrOXYzine PAMOATE 25 MG CAPSULE (FP) PO PRN ×2 (02:12→13:37)
[2022-01-01] MEDS: FLUTICASONE PROP 0.05% 16 GM NASAL SPRAY NS SCH ×2 (04:16→10:47)
[2022-01-01] MEDS: DOCUSATE SODIUM 100 MG CAPSULE (FP) PO SCH ×2 (07:29→14:06)
[2022-01-01 08:18] VITALS: TEMP 97.7
[2022-01-01] MEDS ORDERED: CLOPIDOGREL BISULFATE 75 MG TABLET (FP) PO SCH (10:00)
[2022-01-01] MEDS ORDERED: NIFEdipine E.R 60 MG TABLET PO SCH (10:00)
[2022-01-01] MEDS ORDERED: PRENATAL VITAMINS W/ FOLIC ACID TABLET (FP) PO SCH (10:00)
[2022-01-01] MEDS ORDERED: ASPIRIN 81 MG CHEWABLE TABLETS PO SCH (10:00)
[2022-01-01 10:24] VITALS: BP 154/73; PULSE 80
[2022-01-01] MEDS: CARVEDILOL 6.25 MG TABLET (FP) PO SCH (10:24)
[2022-01-01] MEDS: RANOLAZINE E.R. 1,000 MG TABLET (FP) PO SCH (10:25)
[2022-01-01] MEDS: HYDROCORTISONE 1% TOPICAL CREAM 30 GM TUBE TP SCH (10:27)
== END 2022-01-01 14:40 | disposition left against medical advice (07) | DRG 770 ==
LOC: YASAS 17:47 → Y3E 17:49
PROVIDERS: ADMIT Allergy & Immunology; ATTEND Psychiatry & Neurology Pain Medicine
PROC: HZ42ZZZ Group Counseling for Substance Abuse Treatment, Cognitive-Behavioral (ICD-10-PCS; principal; 2021-12-31)
DX: F11.20 Opioid dependence, uncomplicated (principal); F14.20 Cocaine dependence, uncomplicated; F12.20 Cannabis dependence, uncomplicated; F17.210 Nicotine dependence, cigarettes, uncomplicated; E78.00 Pure hypercholesterolemia, unspecified; I25.10 Atherosclerotic heart disease of native coronary artery without angina pectoris; I10 Essential (primary) hypertension; Z95.1 Presence of aortocoronary bypass graft; Z95.5 Presence of coronary angioplasty implant and graft; K59.01 Slow transit constipation; N40.0 Benign prostatic hyperplasia without lower urinary tract symptoms; Z86.19 Personal history of other infectious and parasitic diseases; Z88.8 Allergy status to other drugs, medicaments and biological substances

== ENCOUNTER 2022-06-05 13:34 | Inpatient (IN) | payer OTHER ==
[2022-06-05 14:34] VITALS: BMI 29.3
[2022-06-05] MEDS ORDERED: METHOCARBAMOL 500 MG TABLET PO PRN (15:01)
[2022-06-05] MEDS ORDERED: MELATONIN 5 MG TABLETS PO PRN (15:01)
[2022-06-05] MEDS ORDERED: hydrOXYzine PAMOATE 25 MG CAPSULE (FP) PO PRN (15:01)
[2022-06-05] MEDS ORDERED: MAG HYDROX/AL HYDROX/SIMETH 30 ML UNIT-DOSE CUP PO PRN (15:01)
[2022-06-05] MEDS ORDERED: P-EPHED 60MG/TRIPROLIDI 2.5MG TABLET PO PRN (15:01)
[2022-06-05] MEDS ORDERED: LOPERAMIDE HCL 2 MG CAPSULE PO PRN (15:01)
[2022-06-05] MEDS ORDERED: DICYCLOMINE HCL 10 MG CAPSULE PO PRN (15:01)
[2022-06-05] MEDS ORDERED: BISMUTH SUBSALICYLATE 262 MG/15 ML BTL PO PRN (15:01)
[2022-06-05] MEDS ORDERED: POLYETHYLENE GLYCOL (HEALTHYLAX) 3350 17 GM PACKET PO PRN (15:01)
[2022-06-05] MEDS ORDERED: BENZONATATE 200 MG CAPSULE PO PRN (15:01)
[2022-06-05] MEDS ORDERED: BENZOCAINE/MENTHOL (CHLORASEPTIC ) LOZENGE MM PRN (15:01)
[2022-06-05] MEDS ORDERED: ACETAMINOPHEN 325 MG TABLET (FP) PO PRN (15:01)
[2022-06-05] MEDS ORDERED: guaiFENesin 600 MG TABLET.ER (FP) PO PRN (15:01)
[2022-06-05] MEDS ORDERED: ONDANSETRON *ODT* 4 MG TABLET SL PRN (15:01)
[2022-06-05] MEDS ORDERED: methaDONE HCL 10 MG TABLET (FOR DETOX USE ONLY) PO ONE (15:06)
[2022-06-05] MEDS ORDERED: methaDONE HCL 10 MG TABLET PO ONE (17:04)
[2022-06-05] MEDS ORDERED: methaDONE HCL 10 MG TABLET (FOR DETOX USE ONLY) ONE (17:08)
[2022-06-05] MEDS: diazePAM 5 MG TABLET PO PRN ×2 (17:42→22:54)
[2022-06-05] MEDS: MAGNESIUM HYDROX 2400MG/30ML ORAL SUSPENSION 30 ML CUP PO PRN (19:48)
[2022-06-05] MEDS: THIAMINE HCL 100 MG TABLET (FP) PO SCH (22:53)
[2022-06-05] MEDS: DOCUSATE SODIUM 100 MG CAPSULE (FP) PO SCH (22:54)
[2022-06-06] MEDS: diazePAM 5 MG TABLET PO PRN ×4 (07:23→22:23)
[2022-06-06] MEDS: MAGNESIUM HYDROX 2400MG/30ML ORAL SUSPENSION 30 ML CUP PO PRN ×2 (07:26→08:37)
[2022-06-06] MEDS: RANOLAZINE E.R. 500 MG TABLET (FP) PO SCH ×3 (09:59→22:22)
[2022-06-06] MEDS ORDERED: ASPIRIN 81 MG CHEWABLE TABLETS PO SCH (10:00)
[2022-06-06] MEDS ORDERED: NIFEdipine E.R 60 MG TABLET PO SCH (10:00)
[2022-06-06] MEDS ORDERED: CARVEDILOL 6.25 MG TABLET (FP) PO SCH (10:00)
[2022-06-06] MEDS ORDERED: SODIUM PHOSPHATE/NA BIPHOS 133 ML ENEMA RC ONE (10:15)
[2022-06-06] MEDS ORDERED: BISACODYL 5 MG TABLET.DR (FP) PO ONE (10:30)
[2022-06-06] MEDS: PRENATAL VITAMINS W/ FOLIC ACID TABLET (FP) PO SCH (10:42)
[2022-06-06 12:10] LABS: HEMATOCRIT 32.8 % (35.4-49); HEMOGLOBIN 10.9 GM/dL (11.7-16.9); MCH 25.2 pg (25.7-33.7); MCHC 33.2 g/dl (32.0-35.9); MEAN CELL VOLUME 75.9 fl (80-96); MEAN PLT VOLUME 7.4 fl (7.5-11.1); PLATELET COUNT 276 10^3/uL (134-434); RBC 4.31 M/mm3 (4.00-5.60); WHITE BLOOD COUNT 5.3 K/mm3 (4.0-10.0)
[2022-06-06 12:51] LABS: BLOOD UREA NITROGEN 18.5 mg/dL (7-18)
[2022-06-06 12:54] LABS: ALBUMIN 3.2 g/dl (3.4-5.0); CREATININE 0.8 mg/dL (0.55-1.3)
[2022-06-06 12:56] LABS: BILIRUBIN,TOTAL 0.4 mg/dL (0.2-1); TOT PROT 6.8 g/dl (6.4-8.2)
[2022-06-06] MEDS ORDERED: LACTULOSE 20 GM/30 ML UDC (FOR ORAL USE ONLY) PO PRN (13:27)
[2022-06-06] MEDS: DOCUSATE SODIUM 100 MG CAPSULE (FP) PO SCH (22:22)
[2022-06-06] MEDS: THIAMINE HCL 100 MG TABLET (FP) PO SCH (22:23)
[2022-06-07] MEDS: diazePAM 5 MG TABLET PO PRN (03:53)
[2022-06-07] MEDS ORDERED: ASPIRIN 81 MG CHEWABLE TABLETS PO SCH (08:33)
[2022-06-07] MEDS ORDERED: NIFEdipine E.R 60 MG TABLET PO SCH (08:34)
[2022-06-07] MEDS ORDERED: CARVEDILOL 6.25 MG TABLET (FP) PO SCH (08:34)
[2022-06-07] MEDS ORDERED: RANOLAZINE E.R. 500 MG TABLET (FP) PO SCH (08:34)
[2022-06-07 08:50] VITALS: BP 155/96; PULSE 72; RESP 18; TEMP 98.1
[2022-06-07] MEDS: PRENATAL VITAMINS W/ FOLIC ACID TABLET (FP) PO SCH (09:09)
[2022-06-07] MEDS ORDERED: methaDONE HCL 10 MG TABLET (FOR DETOX USE ONLY) PO ONE (10:00)
[2022-06-09] MEDS ORDERED: methaDONE HCL 10 MG TABLET (FOR DETOX USE ONLY) PO ONE (10:00)
== END 2022-06-07 09:44 | disposition home or self-care (01) | DRG 773 ==
LOC: YASAS 13:34 → Y6N 17:00
PROVIDERS: ADMIT Allergy & Immunology; ATTEND Surgery
PROC: HZ2ZZZZ Detoxification Services for Substance Abuse Treatment (ICD-10-PCS; principal; 2022-06-05)
DX: F11.23 Opioid dependence with withdrawal (principal); F14.20 Cocaine dependence, uncomplicated; F12.20 Cannabis dependence, uncomplicated; F17.210 Nicotine dependence, cigarettes, uncomplicated; I25.10 Atherosclerotic heart disease of native coronary artery without angina pectoris; I10 Essential (primary) hypertension; Z95.1 Presence of aortocoronary bypass graft; Z95.5 Presence of coronary angioplasty implant and graft; K59.01 Slow transit constipation; N40.0 Benign prostatic hyperplasia without lower urinary tract symptoms; R73.9 Hyperglycemia, unspecified; Z86.19 Personal history of other infectious and parasitic diseases; Z88.8 Allergy status to other drugs, medicaments and biological substances
CPT/HCPCS: 36415; 80053; 85027; 86593; 86780; 87811; C9803-CS; U0003; U0005

== ENCOUNTER 2022-07-03 14:54 | Inpatient (IN) | payer OTHER ==
[2022-07-03 15:34] VITALS: BMI 30.5
[2022-07-03] MEDS ORDERED: LOPERAMIDE HCL 2 MG CAPSULE PO PRN (17:29)
[2022-07-03] MEDS ORDERED: BENZOCAINE/MENTHOL (CHLORASEPTIC ) LOZENGE MM PRN (17:29)
[2022-07-03] MEDS ORDERED: BENZONATATE 200 MG CAPSULE PO PRN (17:29)
[2022-07-03] MEDS ORDERED: P-EPHED 60MG/TRIPROLIDI 2.5MG TABLET PO PRN (17:29)
[2022-07-03] MEDS ORDERED: ACETAMINOPHEN 325 MG TABLET (FP) PO PRN ×2 (17:29)
[2022-07-03] MEDS ORDERED: DICYCLOMINE HCL 10 MG CAPSULE PO PRN (17:29)
[2022-07-03] MEDS ORDERED: MAGNESIUM HYDROX 2400MG/30ML ORAL SUSPENSION 30 ML CUP PO PRN (17:29)
[2022-07-03] MEDS ORDERED: guaiFENesin 600 MG TABLET.ER (FP) PO PRN (17:29)
[2022-07-03] MEDS ORDERED: POLYETHYLENE GLYCOL (HEALTHYLAX) 3350 17 GM PACKET PO PRN (17:29)
[2022-07-03] MEDS ORDERED: MELATONIN 5 MG TABLETS PO PRN (17:29)
[2022-07-03] MEDS ORDERED: hydrOXYzine PAMOATE 25 MG CAPSULE (FP) PO PRN (17:29)
[2022-07-03] MEDS ORDERED: MAG HYDROX/AL HYDROX/SIMETH 30 ML UNIT-DOSE CUP PO PRN (17:29)
[2022-07-03] MEDS ORDERED: methaDONE HCL 10 MG TABLET (FOR DETOX USE ONLY) PO ONE (19:35)
[2022-07-03] MEDS ORDERED: cloNIDine HCL 0.1 MG TABLET PO PRN (19:35)
[2022-07-03] MEDS: diazePAM 5 MG TABLET PO PRN ×2 (20:25→23:51)
[2022-07-03] MEDS ORDERED: ARTIFICIAL TEARS (POLYVINYL ALCOHOL) OPTH DROPS OD PRN (22:00)
[2022-07-03] MEDS: CARVEDILOL 6.25 MG TABLET (FP) PO SCH (22:17)
[2022-07-03] MEDS: DOCUSATE SODIUM 100 MG CAPSULE (FP) PO SCH (22:17)
[2022-07-03] MEDS: ATORVASTATIN CA 80 MG TABLET (FP) PO SCH (22:18)
[2022-07-03] MEDS: THIAMINE HCL 100 MG TABLET (FP) PO SCH (22:20)
[2022-07-03] MEDS: RANOLAZINE E.R. 500 MG TABLET (FP) PO SCH (23:50)
[2022-07-04] MEDS ORDERED: PATIENT'S OWN MEDICATION (NON-FORMULARY) (Ferrous Sulfate [Feosol] 325 MG Tablet) PO SCH (10:00)
[2022-07-04] MEDS: PRENATAL VITAMINS W/ FOLIC ACID TABLET (FP) PO SCH (10:30)
[2022-07-04] MEDS: DOCUSATE SODIUM 100 MG CAPSULE (FP) PO SCH ×2 (10:32→22:23)
[2022-07-04] MEDS: POTASSIUM CHLORIDE TABS 20 MEQ TABLET.ER (FP) PO SCH (10:32)
[2022-07-04] MEDS: CLOPIDOGREL BISULFATE 75 MG TABLET (FP) PO SCH (10:32)
[2022-07-04] MEDS: PANTOPRAZOLE 40 MG TABLET PO SCH (10:32)
[2022-07-04] MEDS: ASPIRIN 81 MG CHEWABLE TABLETS PO SCH (10:32)
[2022-07-04] MEDS: TORSEMIDE 10 MG TABLET PO SCH (10:33)
[2022-07-04] MEDS: CARVEDILOL 6.25 MG TABLET (FP) PO SCH ×2 (10:33→22:23)
[2022-07-04] MEDS: RANOLAZINE E.R. 500 MG TABLET (FP) PO SCH ×2 (10:34→22:23)
[2022-07-04] MEDS: NIFEdipine E.R 60 MG TABLET PO SCH (10:34)
[2022-07-04] MEDS: diazePAM 5 MG TABLET PO PRN ×2 (15:02→22:25)
[2022-07-04] MEDS: ATORVASTATIN CA 80 MG TABLET (FP) PO SCH (22:23)
[2022-07-04] MEDS: SUVOREXANT 10 MG TABLET PO PRN (22:25)
[2022-07-04] MEDS: THIAMINE HCL 100 MG TABLET (FP) PO SCH (22:26)
[2022-07-05] MEDS: diazePAM 5 MG TABLET PO PRN ×3 (03:28→22:25)
[2022-07-05] MEDS ORDERED: methaDONE HCL 10 MG TABLET (FOR DETOX USE ONLY) PO ONE (10:00)
[2022-07-05] MEDS: PRENATAL VITAMINS W/ FOLIC ACID TABLET (FP) PO SCH (10:45)
[2022-07-05] MEDS: PANTOPRAZOLE 40 MG TABLET PO SCH (10:46)
[2022-07-05] MEDS: CARVEDILOL 6.25 MG TABLET (FP) PO SCH (10:46)
[2022-07-05] MEDS: ASPIRIN 81 MG CHEWABLE TABLETS PO SCH (10:46)
[2022-07-05] MEDS: TORSEMIDE 10 MG TABLET PO SCH (10:46)
[2022-07-05] MEDS: RANOLAZINE E.R. 500 MG TABLET (FP) PO SCH ×2 (10:48→22:21)
[2022-07-05] MEDS: POTASSIUM CHLORIDE TABS 20 MEQ TABLET.ER (FP) PO SCH (10:48)
[2022-07-05] MEDS: DOCUSATE SODIUM 100 MG CAPSULE (FP) PO SCH ×2 (10:48→22:21)
[2022-07-05] MEDS: CLOPIDOGREL BISULFATE 75 MG TABLET (FP) PO SCH (10:48)
[2022-07-05] MEDS: NIFEdipine E.R 60 MG TABLET PO SCH (10:50)
[2022-07-05] MEDS: LACTULOSE 20 GM/30 ML UDC (FOR ORAL USE ONLY) PO PRN ×2 (11:02→18:04)
[2022-07-05] MEDS: ATORVASTATIN CA 80 MG TABLET (FP) PO SCH (22:21)
[2022-07-05] MEDS: THIAMINE HCL 100 MG TABLET (FP) PO SCH (22:21)
[2022-07-05] MEDS: SUVOREXANT 10 MG TABLET PO PRN (22:25)
[2022-07-05] MEDS: CARVEDILOL 3.125 MG TABLET (FP) PO SCH (22:59)
[2022-07-06] MEDS: RANOLAZINE E.R. 500 MG TABLET (FP) PO SCH ×2 (10:24→22:12)
[2022-07-06] MEDS: NIFEdipine E.R 60 MG TABLET PO SCH (10:24)
[2022-07-06] MEDS: TORSEMIDE 10 MG TABLET PO SCH (10:25)
[2022-07-06] MEDS: CLOPIDOGREL BISULFATE 75 MG TABLET (FP) PO SCH (10:25)
[2022-07-06] MEDS: CARVEDILOL 3.125 MG TABLET (FP) PO SCH ×2 (10:25→22:12)
[2022-07-06] MEDS: ASPIRIN 81 MG CHEWABLE TABLETS PO SCH (10:25)
[2022-07-06] MEDS: DOCUSATE SODIUM 100 MG CAPSULE (FP) PO SCH ×2 (10:25→22:12)
[2022-07-06] MEDS: POTASSIUM CHLORIDE TABS 20 MEQ TABLET.ER (FP) PO SCH (10:26)
[2022-07-06] MEDS: PANTOPRAZOLE 40 MG TABLET PO SCH (10:26)
[2022-07-06] MEDS: PRENATAL VITAMINS W/ FOLIC ACID TABLET (FP) PO SCH (10:26)
[2022-07-06] MEDS: diazePAM 5 MG TABLET PO PRN ×3 (10:28→17:49)
[2022-07-06] MEDS: LACTULOSE 20 GM/30 ML UDC (FOR ORAL USE ONLY) PO PRN ×2 (10:29→17:51)
[2022-07-06 13:53] LABS: HEMATOCRIT 32.6 % (35.4-49); HEMOGLOBIN 10.9 GM/dL (11.7-16.9); MCH 25.8 pg (25.7-33.7); MCHC 33.5 g/dl (32.0-35.9); MEAN PLT VOLUME 6.9 fl (7.5-11.1); PLATELET COUNT 212 10^3/uL (134-434); RBC 4.24 M/mm3 (4.00-5.60); RDW 17.8 % (11.9-15.9); WHITE BLOOD COUNT 5.3 K/mm3 (4.0-10.0)
[2022-07-06 14:04] LABS: POTASSIUM 3.7 mmol/L (3.5-5.1)
[2022-07-06 14:08] LABS: CALCIUM 8.8 mg/dL (8.5-10.1)
[2022-07-06 14:12] LABS: BLOOD UREA NITROGEN 15.2 mg/dL (7-18); CREATININE 0.9 mg/dL (0.55-1.3)
[2022-07-06 14:13] LABS: TOT PROT 6.2 g/dl (6.4-8.2)
[2022-07-06 14:16] LABS: BILIRUBIN,TOTAL 0.6 mg/dL (0.2-1)
[2022-07-06] MEDS ORDERED: ATORVASTATIN CA 40 MG TABLET (FP) ONE (21:49)
[2022-07-06] MEDS: THIAMINE HCL 100 MG TABLET (FP) PO SCH (22:12)
[2022-07-06] MEDS: SUVOREXANT 10 MG TABLET PO PRN (22:12)
[2022-07-06] MEDS: ATORVASTATIN CA 80 MG TABLET (FP) PO SCH (22:13)
[2022-07-07] MEDS ORDERED: methaDONE HCL 10 MG TABLET (FOR DETOX USE ONLY) PO ONE (10:00)
[2022-07-07] MEDS: RANOLAZINE E.R. 500 MG TABLET (FP) PO SCH ×2 (10:32→22:43)
[2022-07-07] MEDS: POTASSIUM CHLORIDE TABS 20 MEQ TABLET.ER (FP) PO SCH (10:32)
[2022-07-07] MEDS: NIFEdipine E.R 60 MG TABLET PO SCH (10:32)
[2022-07-07] MEDS: TORSEMIDE 10 MG TABLET PO SCH (10:32)
[2022-07-07] MEDS: PRENATAL VITAMINS W/ FOLIC ACID TABLET (FP) PO SCH (10:32)
[2022-07-07] MEDS: CLOPIDOGREL BISULFATE 75 MG TABLET (FP) PO SCH (10:33)
[2022-07-07] MEDS: ASPIRIN 81 MG CHEWABLE TABLETS PO SCH (10:33)
[2022-07-07] MEDS: PANTOPRAZOLE 40 MG TABLET PO SCH (10:33)
[2022-07-07] MEDS: CARVEDILOL 3.125 MG TABLET (FP) PO SCH ×2 (10:33→22:43)
[2022-07-07] MEDS: DOCUSATE SODIUM 100 MG CAPSULE (FP) PO SCH ×2 (10:33→22:43)
[2022-07-07] MEDS ORDERED: ATORVASTATIN CA 40 MG TABLET (FP) ONE (21:43)
[2022-07-07] MEDS: THIAMINE HCL 100 MG TABLET (FP) PO SCH (22:43)
[2022-07-07] MEDS: ATORVASTATIN CA 80 MG TABLET (FP) PO SCH (22:43)
[2022-07-07] MEDS ORDERED: SUVOREXANT 10 MG TABLET PO PRN (23:34)
[2022-07-08] MEDS: PRENATAL VITAMINS W/ FOLIC ACID TABLET (FP) PO SCH (10:20)
[2022-07-08] MEDS: CLOPIDOGREL BISULFATE 75 MG TABLET (FP) PO SCH (10:20)
[2022-07-08] MEDS: PANTOPRAZOLE 40 MG TABLET PO SCH (10:20)
[2022-07-08] MEDS: TORSEMIDE 10 MG TABLET PO SCH (10:20)
[2022-07-08] MEDS: ASPIRIN 81 MG CHEWABLE TABLETS PO SCH (10:20)
[2022-07-08] MEDS: CARVEDILOL 3.125 MG TABLET (FP) PO SCH (10:20)
[2022-07-08] MEDS: DOCUSATE SODIUM 100 MG CAPSULE (FP) PO SCH (10:20)
[2022-07-08] MEDS: NIFEdipine E.R 60 MG TABLET PO SCH (10:20)
[2022-07-08] MEDS: POTASSIUM CHLORIDE TABS 20 MEQ TABLET.ER (FP) PO SCH (10:20)
[2022-07-08] MEDS: RANOLAZINE E.R. 500 MG TABLET (FP) PO SCH (10:20)
[2022-07-08 13:36] VITALS: BP 128/68; PULSE 60; RESP 17; TEMP 97.1
== END 2022-07-08 14:45 | disposition other institution (70) | DRG 773 ==
LOC: YASAS 14:54 → Y6N 17:05
PROVIDERS: ADMIT Allergy & Immunology; ATTEND Surgery
PROC: HZ2ZZZZ Detoxification Services for Substance Abuse Treatment (ICD-10-PCS; principal; 2022-07-03)
DX: F11.23 Opioid dependence with withdrawal (principal); F14.20 Cocaine dependence, uncomplicated; F12.20 Cannabis dependence, uncomplicated; F17.210 Nicotine dependence, cigarettes, uncomplicated; F19.282 Other psychoactive substance dependence with psychoactive substance-induced sleep disorder; F19.24 Other psychoactive substance dependence with psychoactive substance-induced mood disorder; E78.00 Pure hypercholesterolemia, unspecified; I25.10 Atherosclerotic heart disease of native coronary artery without angina pectoris; I10 Essential (primary) hypertension; Z95.1 Presence of aortocoronary bypass graft; Z95.5 Presence of coronary angioplasty implant and graft; K59.01 Slow transit constipation; N40.0 Benign prostatic hyperplasia without lower urinary tract symptoms; Z86.19 Personal history of other infectious and parasitic diseases; Z88.8 Allergy status to other drugs, medicaments and biological substances
CPT/HCPCS: 36415; 80053; 85027; 86593; 86780; C9803-CS; U0003; U0005

== ENCOUNTER 2022-07-08 14:40 | Inpatient (IN) | payer OTHER ==
[2022-07-08] MEDS ORDERED: POLYETHYLENE GLYCOL (HEALTHYLAX) 3350 17 GM PACKET PO PRN (15:43)
[2022-07-08] MEDS ORDERED: MAG HYDROX/AL HYDROX/SIMETH 30 ML UNIT-DOSE CUP PO PRN (15:43)
[2022-07-08] MEDS ORDERED: ACETAMINOPHEN 325 MG TABLET (FP) PO PRN (15:43)
[2022-07-08] MEDS ORDERED: guaiFENesin 600 MG TABLET.ER (FP) PO PRN (15:43)
[2022-07-08] MEDS ORDERED: BENZONATATE 200 MG CAPSULE PO PRN (15:43)
[2022-07-08] MEDS ORDERED: IBUPROFEN 600 MG TABLET (FP) PO PRN (15:43)
[2022-07-08] MEDS ORDERED: NALOXONE HCL (KLOXXADO) 8 MG SPRAY NS PRN (15:43)
[2022-07-08] MEDS ORDERED: IBUPROFEN 400 MG TABLET (FP) PO PRN (15:43)
[2022-07-08] MEDS ORDERED: MAGNESIUM HYDROX 2400MG/30ML ORAL SUSPENSION 30 ML CUP PO PRN (15:43)
[2022-07-08] MEDS ORDERED: hydrOXYzine PAMOATE 25 MG CAPSULE (FP) PO PRN (15:43)
[2022-07-08] MEDS ORDERED: BENZOCAINE/MENTHOL (CHLORASEPTIC ) LOZENGE MM PRN (15:43)
[2022-07-08] MEDS ORDERED: COLLOIDAL OATMEAL 1 BAR EACH TP PRN (15:43)
[2022-07-08] MEDS ORDERED: AMMONIUM LACTATE 12% LOTION 225 GM BOTTLE TP PRN (15:43)
[2022-07-08] MEDS ORDERED: METHOCARBAMOL 500 MG TABLET PO PRN (15:43)
[2022-07-08] MEDS ORDERED: NALOXONE HCL 0.4 MG/ML VIAL IVPUSH PRN (15:43)
[2022-07-08] MEDS ORDERED: LOPERAMIDE HCL 2 MG CAPSULE PO PRN (15:43)
[2022-07-08] MEDS ORDERED: ARTIFICIAL TEARS (POLYVINYL ALCOHOL) OPTH DROPS OD PRN (15:45)
[2022-07-08] MEDS ORDERED: LACTULOSE 20 GM/30 ML UDC (FOR ORAL USE ONLY) PO PRN (15:54)
[2022-07-08] MEDS: DOCUSATE SODIUM 100 MG CAPSULE (FP) PO SCH (21:02)
[2022-07-08] MEDS: CARVEDILOL 3.125 MG TABLET (FP) PO SCH (21:02)
[2022-07-08] MEDS: RANOLAZINE E.R. 1,000 MG TABLET (FP) PO SCH (21:30)
[2022-07-08] MEDS ORDERED: ATORVASTATIN CA 80 MG TABLET (FP) PO SCH (22:00)
[2022-07-08] MEDS ORDERED: MELATONIN 5 MG TABLETS PO SCH (22:00)
[2022-07-08] MEDS ORDERED: THIAMINE HCL 100 MG TABLET (FP) PO SCH (22:00)
[2022-07-09 06:42] VITALS: RESP 16; TEMP 98.1
[2022-07-09 09:15] VITALS: BP 157/83; PULSE 76
[2022-07-09] MEDS ORDERED: TUBERCULIN PPD 5 TU/0.1ML VIAL ID ONE ×2 (09:21→09:29)
[2022-07-09] MEDS: CARVEDILOL 3.125 MG TABLET (FP) PO SCH (09:48)
[2022-07-09] MEDS: DOCUSATE SODIUM 100 MG CAPSULE (FP) PO SCH (09:48)
[2022-07-09] MEDS ORDERED: PRENATAL VITAMINS W/ FOLIC ACID TABLET (FP) PO SCH (10:00)
[2022-07-09] MEDS ORDERED: ASPIRIN 81 MG CHEWABLE TABLETS PO SCH (10:00)
[2022-07-09] MEDS ORDERED: FERROUS SO4 325 MG TABLET (FP) PO SCH (10:00)
[2022-07-09] MEDS ORDERED: CLOPIDOGREL BISULFATE 75 MG TABLET (FP) PO SCH (10:00)
[2022-07-09] MEDS ORDERED: PANTOPRAZOLE 20 MG TABLET PO SCH (10:00)
[2022-07-09] MEDS ORDERED: TORSEMIDE 10 MG TABLET PO SCH (10:00)
[2022-07-09] MEDS ORDERED: NIFEdipine E.R 60 MG TABLET PO SCH (10:00)
[2022-07-09] MEDS: RANOLAZINE E.R. 1,000 MG TABLET (FP) PO SCH (10:33)
== END 2022-07-09 11:05 | disposition left against medical advice (07) | DRG 770 ==
LOC: YASAS 14:40 → Y3E 14:41
PROVIDERS: ADMIT Allergy & Immunology; ATTEND Psychiatry & Neurology Pain Medicine
PROC: HZ42ZZZ Group Counseling for Substance Abuse Treatment, Cognitive-Behavioral (ICD-10-PCS; principal; 2022-07-08)
DX: F11.20 Opioid dependence, uncomplicated (principal); F12.20 Cannabis dependence, uncomplicated; F17.210 Nicotine dependence, cigarettes, uncomplicated; F19.282 Other psychoactive substance dependence with psychoactive substance-induced sleep disorder; F19.24 Other psychoactive substance dependence with psychoactive substance-induced mood disorder; F41.9 Anxiety disorder, unspecified; F32.A Depression, unspecified; N40.0 Benign prostatic hyperplasia without lower urinary tract symptoms; I25.10 Atherosclerotic heart disease of native coronary artery without angina pectoris; I10 Essential (primary) hypertension; Z95.1 Presence of aortocoronary bypass graft; Z95.5 Presence of coronary angioplasty implant and graft

== ENCOUNTER 2022-12-27 08:39 | Inpatient (IN) | payer OTHER ==
[2022-12-27 10:14] VITALS: BMI 28.7
[2022-12-27] MEDS ORDERED: IBUPROFEN 400 MG TABLET (FP) PO PRN (11:27)
[2022-12-27] MEDS ORDERED: cloNIDine HCL 0.1 MG TABLET PO PRN (11:27)
[2022-12-27] MEDS ORDERED: MAG HYDROX/AL HYDROX/SIMETH 30 ML UNIT-DOSE CUP PO PRN (11:27)
[2022-12-27] MEDS ORDERED: LOPERAMIDE HCL 2 MG CAPSULE PO PRN (11:27)
[2022-12-27] MEDS ORDERED: BISMUTH SUBSALICYLATE 524 MG/30 ML PO PRN (11:27)
[2022-12-27] MEDS ORDERED: guaiFENesin 600 MG TABLET.ER (FP) PO PRN (11:27)
[2022-12-27] MEDS ORDERED: ONDANSETRON *ODT* 4 MG TABLET SL PRN (11:27)
[2022-12-27] MEDS ORDERED: NICOTINE POLACRILEX 2 MG GUM BUC PRN (11:27)
[2022-12-27] MEDS ORDERED: BENZONATATE 200 MG CAPSULE PO PRN (11:27)
[2022-12-27] MEDS ORDERED: POLYETHYLENE GLYCOL (HEALTHYLAX) 3350 17 GM PACKET PO PRN (11:27)
[2022-12-27] MEDS ORDERED: MAGNESIUM HYDROX 2400MG/30ML ORAL SUSPENSION 30 ML CUP PO PRN (11:27)
[2022-12-27] MEDS ORDERED: ACETAMINOPHEN 325 MG TABLET (FP) PO PRN (11:27)
[2022-12-27] MEDS ORDERED: NALOXONE HCL 0.4 MG/ML VIAL IM PRN (11:27)
[2022-12-27] MEDS ORDERED: NALOXONE HCL (KLOXXADO) 8 MG SPRAY NS PRN (11:27)
[2022-12-27] MEDS ORDERED: DICYCLOMINE HCL 10 MG CAPSULE PO PRN (11:27)
[2022-12-27] MEDS ORDERED: BENZOCAINE/MENTHOL (CHLORASEPTIC ) LOZENGE MM PRN (11:27)
[2022-12-27] MEDS ORDERED: IBUPROFEN 600 MG TABLET (FP) PO PRN (11:27)
[2022-12-27] MEDS ORDERED: LIDOCAINE 4% PATCH TP ONE (11:31)
[2022-12-27] MEDS ORDERED: methaDONE HCL 10 MG TABLET (FOR DETOX USE ONLY) PO ONE (12:00)
[2022-12-27] MEDS ORDERED: methaDONE HCL 10 MG TABLET (FOR DETOX USE ONLY) ONE (12:01)
[2022-12-27] MEDS: PRENATAL VITAMINS W/ FOLIC ACID TABLET (FP) PO SCH (12:13)
[2022-12-27] MEDS ORDERED: ARTIFICIAL TEARS (POLYVINYL ALCOHOL) OPTH DROPS OD PRN (13:44)
[2022-12-27] MEDS ORDERED: RANOLAZINE E.R. 500 MG TABLET (FP) PO SCH (22:00)
[2022-12-27] MEDS: LACTULOSE 20 GM/30 ML UDC (FOR ORAL USE ONLY) PO PRN (22:27)
[2022-12-27] MEDS: THIAMINE HCL 100 MG TABLET (FP) PO SCH (22:27)
[2022-12-27] MEDS: MELATONIN 5 MG TABLETS PO SCH (22:27)
[2022-12-27] MEDS: CARVEDILOL 6.25 MG TABLET (FP) PO SCH (22:29)
[2022-12-27] MEDS: ATORVASTATIN CA 40 MG TABLET (FP) PO SCH (22:29)
[2022-12-27] MEDS: LIDOCAINE PATCH REMOVAL MC SCH (22:30)
[2022-12-27] MEDS: DOCUSATE SODIUM 100 MG CAPSULE (FP) PO SCH (22:30)
[2022-12-28] MEDS: diazePAM 5 MG TABLET PO PRN ×4 (01:59→22:49)
[2022-12-28] MEDS: ASPIRIN 81 MG CHEWABLE TABLETS PO SCH (10:31)
[2022-12-28] MEDS: NIFEdipine E.R 60 MG TABLET PO SCH (10:32)
[2022-12-28] MEDS: CLOPIDOGREL BISULFATE 75 MG TABLET (FP) PO SCH (10:32)
[2022-12-28] MEDS: DOCUSATE SODIUM 100 MG CAPSULE (FP) PO SCH ×2 (10:33→22:45)
[2022-12-28] MEDS: PANTOPRAZOLE 40 MG TABLET PO SCH (10:34)
[2022-12-28] MEDS: RANOLAZINE E.R. 500 MG TABLET (FP) PO SCH ×2 (10:34→22:46)
[2022-12-28] MEDS: TORSEMIDE 10 MG TABLET PO SCH (10:34)
[2022-12-28] MEDS: FERROUS SO4 325 MG TABLET (FP) PO SCH (10:36)
[2022-12-28] MEDS: PRENATAL VITAMINS W/ FOLIC ACID TABLET (FP) PO SCH (10:44)
[2022-12-28] MEDS: LIDOCAINE 4% PATCH TP SCH (10:59)
[2022-12-28] MEDS: CARVEDILOL 6.25 MG TABLET (FP) PO SCH ×2 (11:02→22:45)
[2022-12-28 11:11] LABS: HEMATOCRIT 43.1 % (35.4-49); MCH 26.9 pg (25.7-33.7); MCHC 32.6 g/dl (32.0-35.9); MEAN CELL VOLUME 82.6 fl (80-96); MEAN PLT VOLUME 7.7 fl (7.5-11.1); PLATELET COUNT 326 10^3/uL (134-434); RBC 5.21 M/mm3 (4.00-5.60); RDW 16.1 % (11.9-15.9); WHITE BLOOD COUNT 10.2 K/mm3 (4.0-10.0)
[2022-12-28 11:20] LABS: POTASSIUM 4.6 mmol/L (3.5-5.1)
[2022-12-28 11:21] LABS: CALCIUM 8.9 mg/dL (8.5-10.1)
[2022-12-28 11:22] LABS: ALBUMIN 4.6 g/dl (3.4-5.0); BLOOD UREA NITROGEN 53.2 mg/dL (7-18)
[2022-12-28 11:25] LABS: CREATININE 5.2 mg/dL (0.55-1.3)
[2022-12-28 11:27] LABS: BILIRUBIN,TOTAL 0.8 mg/dL (0.2-1); TOT PROT 8.4 g/dl (6.4-8.2)
[2022-12-28] MEDS: ATORVASTATIN CA 40 MG TABLET (FP) PO SCH (22:45)
[2022-12-28] MEDS: LIDOCAINE PATCH REMOVAL MC SCH (22:46)
[2022-12-28] MEDS: THIAMINE HCL 100 MG TABLET (FP) PO SCH (22:46)
[2022-12-28] MEDS: MELATONIN 5 MG TABLETS PO SCH (22:46)
[2022-12-28] MEDS: SUVOREXANT 5 MG TABLET PO PRN (22:48)
[2022-12-28] MEDS: LACTULOSE 20 GM/30 ML UDC (FOR ORAL USE ONLY) PO PRN (22:49)
[2022-12-29] MEDS ORDERED: methaDONE HCL 10 MG TABLET (FOR DETOX USE ONLY) PO ONE (10:00)
[2022-12-29] MEDS: FERROUS SO4 325 MG TABLET (FP) PO SCH (10:34)
[2022-12-29] MEDS: CARVEDILOL 6.25 MG TABLET (FP) PO SCH ×2 (10:34→22:13)
[2022-12-29] MEDS: CLOPIDOGREL BISULFATE 75 MG TABLET (FP) PO SCH (10:34)
[2022-12-29] MEDS: ASPIRIN 81 MG CHEWABLE TABLETS PO SCH (10:34)
[2022-12-29] MEDS: DOCUSATE SODIUM 100 MG CAPSULE (FP) PO SCH ×2 (10:35→22:13)
[2022-12-29] MEDS: TORSEMIDE 10 MG TABLET PO SCH (10:35)
[2022-12-29] MEDS: diazePAM 5 MG TABLET PO PRN ×3 (10:35→22:14)
[2022-12-29] MEDS: LIDOCAINE 4% PATCH TP SCH (10:36)
[2022-12-29] MEDS: PRENATAL VITAMINS W/ FOLIC ACID TABLET (FP) PO SCH (10:36)
[2022-12-29] MEDS: RANOLAZINE E.R. 500 MG TABLET (FP) PO SCH ×2 (10:36→22:13)
[2022-12-29 10:39] LABS: ALBUMIN 3.2 g/dl (3.4-5.0); BILIRUBIN,TOTAL 0.5 mg/dL (0.2-1); BLOOD UREA NITROGEN 34.6 mg/dL (7-18); CALCIUM 8.7 mg/dL (8.5-10.1); CREATININE 1.9 mg/dL (0.55-1.3); POTASSIUM 4.3 mmol/L (3.5-5.1); TOT PROT 6.7 g/dl (6.4-8.2)
[2022-12-29] MEDS: PANTOPRAZOLE 40 MG TABLET PO SCH (10:39)
[2022-12-29] MEDS: NIFEdipine E.R 60 MG TABLET PO SCH (10:39)
[2022-12-29] MEDS: LIDOCAINE PATCH REMOVAL MC SCH (22:10)
[2022-12-29] MEDS: SUVOREXANT 5 MG TABLET PO PRN (22:12)
[2022-12-29] MEDS: THIAMINE HCL 100 MG TABLET (FP) PO SCH (22:13)
[2022-12-29] MEDS: ATORVASTATIN CA 40 MG TABLET (FP) PO SCH (22:13)
[2022-12-29] MEDS: MELATONIN 5 MG TABLETS PO SCH (22:14)
[2022-12-30] MEDS: diazePAM 5 MG TABLET PO PRN ×2 (01:51→09:47)
[2022-12-30] MEDS: RANOLAZINE E.R. 500 MG TABLET (FP) PO SCH ×2 (09:46→22:10)
[2022-12-30] MEDS: TORSEMIDE 10 MG TABLET PO SCH (09:47)
[2022-12-30] MEDS: CARVEDILOL 6.25 MG TABLET (FP) PO SCH ×2 (09:47→22:10)
[2022-12-30] MEDS: FERROUS SO4 325 MG TABLET (FP) PO SCH (09:48)
[2022-12-30] MEDS: PRENATAL VITAMINS W/ FOLIC ACID TABLET (FP) PO SCH (09:48)
[2022-12-30] MEDS: PANTOPRAZOLE 40 MG TABLET PO SCH (09:48)
[2022-12-30] MEDS: ASPIRIN 81 MG CHEWABLE TABLETS PO SCH (09:48)
[2022-12-30] MEDS: NIFEdipine E.R 60 MG TABLET PO SCH (09:48)
[2022-12-30] MEDS: LIDOCAINE 4% PATCH TP SCH (09:48)
[2022-12-30] MEDS: DOCUSATE SODIUM 100 MG CAPSULE (FP) PO SCH ×2 (09:48→22:09)
[2022-12-30] MEDS: CLOPIDOGREL BISULFATE 75 MG TABLET (FP) PO SCH (09:49)
[2022-12-30] MEDS: hydrOXYzine PAMOATE 25 MG CAPSULE (FP) PO PRN (17:09)
[2022-12-30] MEDS: THIAMINE HCL 100 MG TABLET (FP) PO SCH (22:09)
[2022-12-30] MEDS: ATORVASTATIN CA 40 MG TABLET (FP) PO SCH (22:09)
[2022-12-30] MEDS: SUVOREXANT 5 MG TABLET PO PRN (22:09)
[2022-12-30] MEDS: MELATONIN 5 MG TABLETS PO SCH (22:09)
[2022-12-30] MEDS: METHOCARBAMOL 500 MG TABLET PO PRN (22:10)
[2022-12-30] MEDS: LIDOCAINE PATCH REMOVAL MC SCH (22:46)
[2022-12-31] MEDS ORDERED: methaDONE HCL 10 MG TABLET (FOR DETOX USE ONLY) PO ONE (10:00)
[2022-12-31] MEDS: RANOLAZINE E.R. 500 MG TABLET (FP) PO SCH ×2 (10:16→21:54)
[2022-12-31] MEDS: ASPIRIN 81 MG CHEWABLE TABLETS PO SCH (10:16)
[2022-12-31] MEDS: CARVEDILOL 6.25 MG TABLET (FP) PO SCH ×2 (10:16→21:53)
[2022-12-31] MEDS: PRENATAL VITAMINS W/ FOLIC ACID TABLET (FP) PO SCH (10:16)
[2022-12-31] MEDS: CLOPIDOGREL BISULFATE 75 MG TABLET (FP) PO SCH (10:17)
[2022-12-31] MEDS: NIFEdipine E.R 60 MG TABLET PO SCH (10:18)
[2022-12-31] MEDS: TORSEMIDE 10 MG TABLET PO SCH (10:18)
[2022-12-31] MEDS: FERROUS SO4 325 MG TABLET (FP) PO SCH (10:18)
[2022-12-31] MEDS: PANTOPRAZOLE 40 MG TABLET PO SCH (10:18)
[2022-12-31] MEDS: DOCUSATE SODIUM 100 MG CAPSULE (FP) PO SCH ×2 (10:18→21:53)
[2022-12-31] MEDS: LIDOCAINE 4% PATCH TP SCH (10:36)
[2022-12-31] MEDS: LACTULOSE 20 GM/30 ML UDC (FOR ORAL USE ONLY) PO PRN (18:28)
[2022-12-31] MEDS: MELATONIN 5 MG TABLETS PO SCH (21:52)
[2022-12-31] MEDS: SUVOREXANT 5 MG TABLET PO PRN (21:52)
[2022-12-31] MEDS: METHOCARBAMOL 500 MG TABLET PO PRN (21:52)
[2022-12-31] MEDS: ATORVASTATIN CA 40 MG TABLET (FP) PO SCH (21:53)
[2022-12-31] MEDS: hydrOXYzine PAMOATE 25 MG CAPSULE (FP) PO PRN (21:53)
[2022-12-31] MEDS: THIAMINE HCL 100 MG TABLET (FP) PO SCH (21:54)
[2022-12-31] MEDS: LIDOCAINE PATCH REMOVAL MC SCH (21:54)
[2023-01-01 08:52] VITALS: BP 142/71; PULSE 79; RESP 18; TEMP 97.3
[2023-01-01] MEDS: ASPIRIN 81 MG CHEWABLE TABLETS PO SCH (10:04)
[2023-01-01] MEDS: RANOLAZINE E.R. 500 MG TABLET (FP) PO SCH (10:04)
[2023-01-01] MEDS: NIFEdipine E.R 60 MG TABLET PO SCH (10:04)
[2023-01-01] MEDS: DOCUSATE SODIUM 100 MG CAPSULE (FP) PO SCH (10:05)
[2023-01-01] MEDS: FERROUS SO4 325 MG TABLET (FP) PO SCH (10:05)
[2023-01-01] MEDS: PANTOPRAZOLE 40 MG TABLET PO SCH (10:05)
[2023-01-01] MEDS: CARVEDILOL 6.25 MG TABLET (FP) PO SCH (10:07)
[2023-01-01] MEDS: PRENATAL VITAMINS W/ FOLIC ACID TABLET (FP) PO SCH (10:09)
[2023-01-01] MEDS: LIDOCAINE 4% PATCH TP SCH (10:09)
[2023-01-01] MEDS: TORSEMIDE 10 MG TABLET PO SCH (10:09)
[2023-01-01] MEDS: CLOPIDOGREL BISULFATE 75 MG TABLET (FP) PO SCH (10:18)
[2023-01-01 11:53] LABS: POTASSIUM 3.9 mmol/L (3.5-5.1)
[2023-01-01 12:15] LABS: CALCIUM 8.9 mg/dL (8.5-10.1)
[2023-01-01 12:16] LABS: BLOOD UREA NITROGEN 23.6 mg/dL (7-18)
[2023-01-01 12:17] LABS: CREATININE 1.2 mg/dL (0.55-1.3)
[2023-01-01 12:18] LABS: BILIRUBIN,TOTAL 0.7 mg/dL (0.2-1)
[2023-01-01 12:19] LABS: TOT PROT 6.3 g/dl (6.4-8.2)
== END 2023-01-01 10:26 | disposition home or self-care (01) | DRG 773 ==
LOC: YASAS 08:39 → Y3N 12:43
PROVIDERS: ADMIT Allergy & Immunology; ATTEND Surgery
PROC: HZ2ZZZZ Detoxification Services for Substance Abuse Treatment (ICD-10-PCS; principal; 2022-12-27)
DX: F11.23 Opioid dependence with withdrawal (principal); F12.20 Cannabis dependence, uncomplicated; F17.210 Nicotine dependence, cigarettes, uncomplicated; F19.24 Other psychoactive substance dependence with psychoactive substance-induced mood disorder; F41.9 Anxiety disorder, unspecified; E78.5 Hyperlipidemia, unspecified; I25.10 Atherosclerotic heart disease of native coronary artery without angina pectoris; I11.0 Hypertensive heart disease with heart failure; I50.9 Heart failure, unspecified; Z95.1 Presence of aortocoronary bypass graft; Z95.5 Presence of coronary angioplasty implant and graft; N40.0 Benign prostatic hyperplasia without lower urinary tract symptoms; R76.8 Other specified abnormal immunological findings in serum; Z86.19 Personal history of other infectious and parasitic diseases; Z59.01 Sheltered homelessness; Z88.8 Allergy status to other drugs, medicaments and biological substances
CPT/HCPCS: 36415; 80053; 80307; 85027; 86593; 86780; 87635; 87811